=== PATIENT | female | born 1955 | race African-American/Black ===

== ENCOUNTER → 2016-05-01 | Outpatient (CLI) | payer MEDICAID ==
[~2016-05-01] MED LIST: AC325T PO; AMLO10TA4 PO; AMLO5TAB2 PO; ASCO500T20 PO; ASP81CT PO; ASPI-892 PO; Amlodipine Besylate PO; CLPD75T PO; DCS100C PO; DICL100G13 TOP; DOCU-161 PO; ENXP40I.4 SC; ESTR1TAB24 PO; FURO20TA4 PO; FURO40TA PO; GABA-486 PO; Gabapentin PO; HYDR-3816 PO; LEVO75TA PO; LORA10TA7 PO; LVT.1T PO; Loratadine PO; METO-351 PO; METO25TA PO; MTF500T PO; MTP25TSR PO; MULT-974 PO; MULT1TAB12 PO; OMEP20CA12 PO; POTA10TA36 PO; RIVA15TA PO; RIVA20TA4 PO; SULF500T PO; SULF500T3 PO; TRAM50TA2 PO; VITA400T9 PO; [UNRECOGNIZED DRUG - CODE] PO
--- OUTSIDE RECORDS SUMMARY | 2016-05-01 11:00 | XMS REPORT | Continuity of Care Document ---
Author Author [facility] Organization [facility] Address Unknown Phone Unavailable Care Team Providers Care Transit Police Officer Name Role Phone GUERO CABRERA DO PCP Insurance Providers Payer Name Policy Number Subscriber Name Relationship CIGNA [id number] Brittny Bernal 20 Self / Same As Patient Advance Directives Directive Response Recorded Date/Time Advance Directives Yes 09/24/14 6:50pm Health Care Power of Lacrosse Coach Y son Frieda 09/24/14 6:50pm Organ Donor No 09/24/14 6:50pm Resuscitation Status Full Code 09/24/14 6:50pm Chief Complaint and Reason for Visit Chief Complaint LEFT LOWER EXTREMITY DVT Reason for Visit Left leg DVT Left leg DVT Problems Medical Problems Problem Onset Date Status Left leg DVT Unknown Active Left leg DVT Unknown Active Medications Medication Dose Route Sig Days/Qty Instructions Order Date Discontinued Date Status Metoprolol Succinate 25 Mg PO DAILY 05/17/14 08/11/14 Discontinued Estradiol 1 Mg PO DAILY 05/17/14 08/11/14 Discontinued Vitamin E Mixed 400 Unit PO DAILY 05/17/14 Active Calcium Carbonate/Vitamin D3 1 Tab PO DAILY 05/17/14 Active Levothyroxine Sodium (Levothroid) 100 Mcg PO DAILY 05/17/14 Discontinued Metformin HCl (Glucophage) 500 Mg PO TWICE A DAY 05/17/14 08/11/14 Discontinued Sulfasalazine 1,500 Mg PO DAILY TAKES 3 (500MG) TABLETS 05/17/1408/11 Discontinued Ascorbic Acid 1,500 Mg PO DAILY 05/17/14 Active Multivitamin 1 Tab PO DAILY 07/07/14 09/25/14 Discontinued Acetaminophen 650 Mg PO EVERY 4HRS PRN MILD PAIN 30 Days 07/14/14 Discontinued Aspirin 81 Mg PO DAILY 30 Days 07/14/14 09/25/14 Discontinued [Amlodipine Besylate] 5 Mg PO TWICE A DAY 30 Days 07/14/14 09/25/14 Discontinued Clopidogrel Bisulfate 75 Mg PO DAILY 30 Days 07/14/14 09/25/14 Discontinued Docusate Sodium 100 Mg PO TWICE A DAY 30 Days 07/14/14 09/25/14 Discontinued Enoxaparin Sodium 40 Mg SC DAILY@1100 30 Days 07/14/14 08/11/14 Discontinued Metoprolol Succinate (Metoprolol ER 25mg) 50 Mg PO DAILY 30 Days 09/25/14 Discontinued Levothyroxine Sodium 75 Mcg PO DAILY@0630 30 Qty 08/11/14 09/25/14 Discontinued [Loratadine] 10 Mg PO DAILY 30 Qty 08/11/14 09/25/14 Discontinued Diclofenac Sod 0 Gm TOP FOUR TIMES DAILY 1 Qty 08/11/14 09/25/14 Discontinued [Gabapentin] 100 Mg PO TWICE A DAY 60 Qty 08/11/14 09/25/14 Discontinued Rivaroxaban 15 Mg PO TWICE A DAY 42 Qty 09/24/14 09/24/14 Discontinued Multivitamins W-Minerals 1 Tab PO DAILY 09/25/14 Active Aspirin 81 Mg PO DAILY 09/25/14 Active Amlodipine Besylate (Norvasc 5 Mg) 5 Mg PO TWICE A DAY 09/25/14 Discontinued Clopidogrel Bisulfate 75 Mg PO DAILY 09/25/14 09/26/14 Discontinued Docusate Sodium 100 Mg PO TWICE A DAY 09/25/14 Active Metoprolol Succinate (Toprol Xl) 25 Mg PO DAILY 09/25/14 Active Loratadine 10 Mg PO DAILY 09/25/14 Active Gabapentin 100 Mg PO TWICE A DAY 09/25/14 Active Furosemide 40 Mg PO DAILY 09/25/14 09/26/14 Discontinued Hydrocodone Bit/Acetaminophen 1 Tab PO THREE TIMES A DAY 09/25/14 Active Omeprazole 20 Mg PO DAILY 09/25/14 Active Tramadol Hcl 50 Mg PO EVERY 12 HOURS PRN BREAKTHROUGH PAIN 09/25/14 Active Sulfasalazine 1,500 Mg PO TWICE A DAY TAKES 3 (500MG) TABLETS 09/25/14 Active Amlodipine Besylate 10 Mg PO DAILY 30 Qty 09/26/14 Active Rivaroxaban 15 Mg PO TWICE A DAY 40 Qty 09/26/14 Active Rivaroxaban 20 Mg PO DAILY 30 Qty daily 09/26/14 Active Furosemide (Lasix) 1 Each PO DAILY 30 Qty 09/26/14 Active Potassium Chloride 1 Each PO DAILY WITH MEAL 30 Qty 09/26/14 Active Social History Social History Problem Response Recorded Date/Time Alcohol Use Denies Use 09/24/2014 6:50pm Recreational Drug Use No 09/24/2014 6:50pm Recent Foreign Travel No 09/24/2014 6:50pm Recent Infectious Disease Exposure No 09/24/2014 6:50pm Hospitalization with Isolation Denies 09/26/2014 3:00pm Sexually Transmitted Disease No 09/24/2014 6:50pm HIV/AIDS No 09/24/2014 6:50pm Smoking Status Never a Smoker 09/24/2014 6:50pm Do you dip or chew tobacco? No 09/24/2014 6:50pm Query Response Start Date Stop Date Smoking Status Never a Smoker 04/13/1976 Hospital Discharge Instructions No hospital discharge instructions. Plan of Care Discharge Date 09/26/14 2:15pm Disposition 30 STILL A PATIENT Instructions/Education Provided Deep Venous Thrombosis (ED) Deep Venous Thrombosis (GEN) Forms Provided PDI Medical Prescriptions See Medications Section Referrals dameon (Unspecified) 06/13/14 Reason(s) for Referral: Your appointment is on June 13 at 830 am GUERO CABRERA DO (Unspecified) 08/18/14 Address: [address] [place] [phone] Reason(s) for Referral: AT 10:30 AM TIMO COSTA MD (Unspecified) Address: [address] [place] [phone] Reason(s) for Referral: PLEASE CALL TO SCHEDULE AN APPOINTMENT IN 1-2 WEEKS. GUERO CABRERA DO (Unspecified) 10/03/14 Address: [address] [place] [phone] [phone] Reason(s) for Referral: 1:45 PM OTONIEL CALI MD (Unspecified) 10/16/14 Address: [facility] [address] [place] [address] Reason(s) for Referral: 2:30 PM TIMO COSTA MD (Unspecified) 10/26/14 Address: [address] [place] [phone] Reason(s) for Referral: 11:30 AM Care Plan and Goals Appointment with Dr. Costa's office in 2-[address] Cabrera's office in one week Functional Status Query Response Date Recorded Patient Orientation Normal For Age September 26, 2014 10:32am Comprehension Ability Understands Concepts September 26, 2014 9:20am Allergies, Adverse Reactions, Alerts Allergen Type Severity Reaction Status Last Updated No Known Drug Allergies Active 12/04/11 Immunizations Name Given Type Tetanus Booster (TDap) Unknown Historical pneumococcal polysaccharide PPV23 09/26/14 Administered pneumococcal polysaccharide PPV23 09/26/14 Administered Vital Signs Acute Vital Signs Vital Response Date/Time Temperature (Fahrenheit) 98.0 degrees F (97.6 - 99.5) Temperature (Calculated Celsius) 36.81751 degrees C (36.4 - 37.5) Temperature Source Tympanic Pulse Rate (adult) 85 bpm (60 - 90) Respiratory Rate 19 bpm (12 - 24) O2 Sat by Pulse Oximetry 97 % (88 - 100) Blood Pressure 146/86 mm Hg Pain Pain Intensity 0 Height (Feet) 5 feet Height (Inches) 5.00 inches Height (Calculated Centimeters) 165.023324 cm Weight (Pounds) 290 pounds Weight (Calculated Grams) 497448.789 gm Weight (Calculated Kilograms) 131.880012 kilograms Calculated BMI 48.25 Results Laboratory Results Test Name Result Units Flags Reference Collection Date/Time Result Date/ Time Comments White Blood Count 6.0 10^3/uL 4.3-11.0 09/24/2014 5:32p 09/24/2014 5: 45pm Red Blood Count 4.35 10^6/uL 4.35-5.85 09/24/2014 5:32pm 09/24/2014 5: 45pm Hemoglobin 12.4 G/DL 11.5-16.0 09/24/2014 5:32pm 09/24/2014 5:45pm Hematocrit 37 % 35-52 09/24/2014 5:32pm 09/24/2014 5:45pm Mean Corpuscular Volume 86 FL 80-99 09/24/2014 5:32pm 09/24/2014 5: 45pm Mean Corpuscular Hemoglobin 29 PG 25-34 09/24/2014 5:32p 09/24/2014 5: 45pm Mean Corpuscular Hemoglobin Concent 33 G/DL 32-36 09/24/2014 5:32pm 5:45pm Red Cell Distribution Width 14.8 % H 10.0-14.5 09/24/2014 5:32p 2014 5:45pm Platelet Count 325 10^3/uL 130-400 09/26/2014 5:18am 09/26/2014 5:53am Mean Platelet Volume 10.0 FL 7.4-10.4 09/24/2014 5:32pm 09/24/2014 5: 45pm Neutrophils (%) (Auto) 60 % 42-75 09/24/2014 5:32p 09/24/2014 5:45pm Lymphocytes (%) (Auto) 28 % 12-44 09/24/2014 5:32pm 09/24/2014 5:45pm Monocytes (%) (Auto) 10 % 0-12 09/24/2014 5:32p 09/24/2014 5:45pm Eosinophils (%) (Auto) 2 % 0-10 09/24/2014 5:32p 09/24/2014 5:45pm Basophils (%) (Auto) 1 % 0-10 09/24/2014 5:32p 09/24/2014 5:45pm Neutrophils # (Auto) 3.6 X 10^3 1.8-7.8 09/24/2014 5:32pm 09/24/2014 5: 45pm Lymphocytes # (Auto) 1.7 X 10^3 1.0-4.0 09/24/2014 5:32pm 09/24/2014 5: 45pm Monocytes # (Auto) 0.6 X 10^3 0.0-1.0 09/24/2014 5:32pm 09/24/2014 5: 45pm Eosinophils # (Auto) 0.1 10^3/uL 0.0-0.3 09/24/2014 5:32pm 09/24/2014 5 :45pm Basophils # (Auto) 0.1 10^3/uL 0.0-0.1 09/24/2014 5:32pm 09/24/2014 5: 45pm Prothrombin Time 14.1 SEC 12.2-14.7 09/24/2014 5:32pm 09/24/2014 5: 56pm INR Comment 1.1 0.8-1.4 09/24/2014 5:32pm 09/24/2014 5:56pm INTERPRETIVE DATA SUGGESTED THERAPEUTIC RANGE FOR INR'S: VENOUS THROMBOSIS, PULMONARY EMBOLISM, OR PREVENTION OF SYSTEMIC EMBOLISM (EG. IN ATRIAL FIBRILLATION): 2.0 - 3.0 MECHANICAL PROSTHETIC HEART VALVES: 2.5 - 3.5* *NOTE: INR'S UP TO 4.5 MAY BE NECESSARY IN SELECTED GROUPS OF HIGH RISK PATIENTS. [employer] CONSENSUS CONFERENCE ON ANTITHROMBOTIC THERAPY (2000). Activated Partial Thromboplast Time 64 SEC H 24-35 09/25/2014 4:44am 5:32am Sodium Level 142 MMOL/L 135-145 09/26/2014 5:18am 09/26/2014 6:26am Potassium Level 3.3 MMOL/L L 3.6-5.0 09/26/2014 5:18am 09/26/2014 6:26am Chloride Level 101 MMOL/L 98-107 09/26/2014 5:18am 09/26/2014 6:26am Carbon Dioxide Level 29 MMOL/L 21-32 09/26/2014 5:18am 09/26/2014 6: 26am Blood Urea Nitrogen 6 MG/DL L 7-18 09/26/2014 5:18am 09/26/2014 6:26am Creatinine 0.69 MG/DL 0.60-1.30 09/26/2014 5:18am 09/26/2014 6:26am BUN/Creatinine Ratio 9 09/26/2014 5:18am 09/26/2014 6:26am Estimat Glomerular Filtration Rate > 60 09/26/2014 5:18am 2014 6:26am GFR INTERPRETIVE DATA UNITS FOR ESTIMATED GFR (eGFR): mL/min/1.73 M2 REFERENCE RANGE FOR ESTIMATED GFR (eGFR) eGFR NORMAL eGFR >60 MODERATELY DECREASED eGFR 30-59 SEVERLY DECREASED eGFR 15-29 KIDNEY FAILURE <15 (OR DIALYSIS) Glucose Level 102 MG/DL 70-105 09/26/2014 5:18am 09/26/2014 6:26am Calcium Level 9.9 MG/DL 8.5-10.1 09/26/2014 5:18am 09/26/2014 6:26am Thyroid Stimulating Hormone (TSH) 0.99 UIU/ML 0.35-4.94 09/25/2014 4: 44am 09/25/2014 2:31pm Procedures Procedure Status Date Provider(s) Tracing only of electrocardiogram completed 09/25/14 TIMO COSTA MD Color Doppler echocardiography completed 09/25/14 TIMO COSTA MD Encounters Encounter Location Date/Time Discharged Inpatient Via [facility] 09/24/14 6:03pm Recent Diagnosis Left leg DVT Left leg DVT
--- NOTE | 2016-05-01 13:10 | Diagnostic Imaging Report ---
EXAMINATION: Left lower extremity duplex venous ultrasound. TECHNIQUE: DVT protocol. Multiple sonographic images with color Doppler and waveform interrogation were performed of the left lower extremity veins with compression and augmentation maneuvers. INDICATION: Left leg swelling. FINDINGS: The left lower extremity veins from the groin to below the knee veins were examined with normal color-flow, compressibility and waveform demonstrated. The great saphenous vein is patent. IMPRESSION: No evidence of DVT in the left lower extremity. Dictated by: Dictated on workstation # [id number]
== END ==
LOC: RAD 10:56
PROVIDERS: ATTEND Family Medicine
DX: M79.89 Other specified soft tissue disorders (principal)

== ENCOUNTER 2016-05-02 10:54 | Emergency (ER) | payer MEDICAID ==
[~2016-05-02] VITALS: Ht 165.1 cm; Wt 132.4 kg
--- OUTSIDE RECORDS SUMMARY | 2016-05-02 11:01 | XMS REPORT | Continuity of Care Document ---
Author Author [facility] Organization [facility] Address Unknown Phone Unavailable Care Team Providers Care Computer System Validation Specialist Name Role Phone GUERO CABRERA DO PCP Insurance Providers Payer Name Policy Number Subscriber Name Relationship [employer] [id number] Brittny Bernal 20 Self / Same As Patient Advance Directives Directive Response Recorded Date/Time Advance Directives Yes 09/24/14 6:50pm Health Care Power of Handle Bender Y son Frieda 09/24/14 6:50pm Organ Donor [...] am GUERO CABRERA DO (Unspecified) 08/18/14 Address: [address] [place] [phone] Reason(s) for Referral: AT 10:30 AM TIMO COSTA MD (Unspecified) Address: [address] [place] [phone] Reason(s) for Referral: PLEASE CALL TO SCHEDULE AN APPOINTMENT IN 1-2 WEEKS. GUERO CABRERA DO (Unspecified) 10/03/14 Address: [address] [place] [phone] Reason(s) for Referral: 1:45 PM OTONIEL CALI MD (Unspecified) 10/16/14 Address: [facility] [address] [place] [address] Reason(s) for Referral: 2:30 PM TIMO COSTA MD (Unspecified) 10/26/14 Address: [address] [place] [phone] Reason(s) for Referral: 11:30 AM Care Plan [...] F (97.6 - 99.5) Temperature (Calculated Celsius) 36.97124 degrees C (36.4 - 37.5) Temperature Source Tympanic Pulse Rate (adult) 85 bpm (60 - 90) Respiratory Rate 19 bpm (12 - 24) O2 Sat by Pulse Oximetry 97 % (88 - 100) Blood Pressure 146/86 mm Hg Pain Pain Intensity 0 Height (Feet) 5 feet Height (Inches) 5.00 inches Height (Calculated Centimeters) 165.416045 cm Weight (Pounds) 290 pounds Weight (Calculated Grams) 513556.789 gm Weight (Calculated Kilograms) 131.981495 kilograms Calculated BMI 48.25 Results Laboratory Results [...] SELECTED GROUPS OF HIGH RISK PATIENTS. [employer] [place] [employer] CONSENSUS CONFERENCE ON [...] Encounters Encounter Location Date/Time Discharged Inpatient Via [facility] 09/24/14 6:03pm Recent Diagnosis Left leg DVT Left leg DVT
--- NOTE | 2016-05-02 11:27 | ED General ---
General Chief Complaint: Lower Extremity Stated Complaint: LEFT LEG SWELLING Nursing Triage Note: pt was seen as outpatient this morning for doppler of left lower extremity. they sent her home to change her clothes. dr cabrera then sent her back to er to be evaluated. Nursing Sepsis Screen: No Definite Risk Source of Information: Patient Exam Limitations: No Limitations History of Present Illness Time Seen by Provider: 11:10 Initial Comments Here with one to 2 weeks of increasing left lower extremity swelling and pain. Has history of stroke and has left-sided residual. Patient notes the swelling has been increasing. She did have left lower extremity ultrasound yesterday and this was negative for DVT. No recent report of fever or chills. Timing/Duration: 1 Week Severity: Moderate Associated Systoms: No Chest Pain, No Fever/Chills, No Nausea/Vomiting, No Shortness of Air, No Weakness Allergies and Home Medications Allergies Coded Allergies: No Known Drug Allergies (Unverified , 12/04/11) Home Medications Amlodipine Besylate 10 Mg Tablet #30 10 MG PO DAILY Prescribed by: TIMO COLVIN on 09/26/14750 Ascorbic Acid 500 Mg Tablet 1,500 MG PO DAILY (Reported) TAKES 3 (500MG) TABLETS Aspirin 81 Mg Tabec 81 MG PO DAILY (Reported) Calcium Carbonate/Vitamin D3 1 Each Tablet 1 TAB PO DAILY (Reported) Docusate Sodium 100 Mg Capsule 100 MG PO BID (Reported) Furosemide 20 Mg Tablet #30 1 EACH PO DAILY Prescribed by: TIMO COLVIN on 09/26/14750 Gabapentin 100 Mg Capsule 100 MG PO BID (Reported) Hydrocodone Bit/Acetaminophen 1 Tab Tablet 1 TAB PO TID (Reported) Loratadine 10 Mg Tablet 10 MG PO DAILY (Reported) Metoprolol Succinate 25 Mg Tab.sr.24h 25 MG PO DAILY (Reported) Multivitamins W-Minerals 1 Each Tablet 1 TAB PO DAILY (Reported) Omeprazole 20 Mg Capsule.dr 20 MG PO DAILY (Reported) Potassium Chloride 10 Meq Tab.prt.sr #30 1 EACH PO DAILY WITH MEAL Prescribed by: TIMO COLVIN on 09/26/14750 Rivaroxaban 15 Mg Tablet #40 15 MG PO BID Prescribed by: TIMO COLVIN on 09/26/14750 Rivaroxaban 20 Mg Tablet #30 20 MG PO DAILY Take Xarelto 15 mg twice daily for 20 days then start Xarelto 20 mg daily Prescribed by: TIMO COLVIN on 09/26/14 0751 Sulfasalazine 500 Mg Tablet 1,500 MG PO BID (Reported) TAKES 3 (500MG) TABLETS Tramadol Hcl 50 Mg Tablet 50 MG PO Q12H PRN PRN BREAKTHROUGH PAIN (Reported) Vitamin E Mixed 400 Unit Tablet 400 UNIT PO DAILY (Reported) Constitutional: see HPINo chills, No fever Respiratory: no symptoms reported Cardiovascular: No chest pain, edema Gastrointestinal: no symptoms reportedNo diarrhea, No nausea, No vomiting Genitourinary: no symptoms reported Musculoskeletal: no symptoms reported Skin: no symptoms reported Psychiatric/Neurological: See HPI Pre-Existing Deficit Past Ctqthaq-Xxkacq-Lmcfmb Hx Patient Social History Alcohol Use: Past History Recreational Drug Use: No Smoking Status: Former Smoker Former Smoker/When Quit: Apr 13, 1976 Recent Foreign Travel: No Contact w/Someone Who Travel: No Recent Infectious Disease Expo: No Recent Hopitalizations: No Physical Abuse Screen: No Sexual Abuse: No Immunizations Up To Date Tetanus Booster (TDap): Unknown Date of Influenza Vaccine: Feb 12, 2016 Seasonal Allergies Seasonal Allergies: Yes Surgeries HX Surgeries: Yes (HEART CATH 1 MONTH AGO) Surgeries: Breast, Hysterectomy Respiratory Hx Respiratory Disorders: Yes Respiratory Disorders: Asthma Cardiovascular Hx Cardiac Disorders: Yes (cardiac recorder implanted lt upper chest) Cardiac Disorders: Hypertension Neurological Hx Neurological Disorders: Yes (CVA 07/2014; lt upper/lower flaccid) Neurological Disorders: Headaches /Migraines, Stroke Reproductive System Hx Reproductive Disorders: No Sexually Transmitted Disease: No HIV/AIDS: No Female Reproductive Disorders: Denies 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 Genitourinary Hx Genitourinary Disorders: No Gastrointestinal Hx Gastrointestinal Disorders: No Musculoskeletal Hx Musculoskeletal Disorders: No Endocrine Hx Endocrine Disorders: Yes Endocrine Disorders: Hypothyroidsim, Diabetes, Non-Insulin dep HEENT HX ENT Disorders: No Hearing Impairment: Denies Cancer Hx Cancer: No Psychosocial Hx Psychiatric Problems: No Integumentary HX Skin/Integumentary Disorder: No Blood Transfusions Hx Blood Disorders: No Reviewed Nursing Assessment Reviewed/Agree w Nursing PMH: Yes Family Medical History Significant Family History: No Pertinent Family Hx Family Medial History: FH: lung cancer 19 FATHER 19 MOTHER Stroke (cerebrovascular) 19 MOTHER Physical Exam Vital Signs Vital Sign - Last 12Hours 05/02/16 11:10 Temp 96.9 Pulse 77 Resp 18 B/P 133/73 Capillary Refill : Less Than 3 Seconds General Appearance: No Apparent Distress WD/WN HEENT: PERRL/EOMI Pharynx Normal Neck: Non Tender Supple Respiratory: Lungs Clear Normal Breath Sounds Cardiovascular: Regular Rate, Rhythm No Murmur Gastrointestinal: Non Tender Soft Back: Normal Inspection No CVA Tenderness No Vertebral Tenderness Extremity: Pedal Edema (3+ pedal edema to the left side to the level of the knee. Also noted edema to the left arm.) Neurologic/Psychiatric: Alert Oriented x3 Progress/Results/Core Measures Results/Orders Lab Results Laboratory Tests Test 05/02/16 11:25 Range/Units Alanine Aminotransferase (ALT/SGPT) 12 0-55 U/L Albumin 3.6 3.2-4.5 G/DL Alkaline Phosphatase 125 40-136 U/L Anion Gap 8 5-14 MMOL/L Aspartate Amino Transf (AST/SGOT) 15 5-34 U/L BUN/Creatinine Ratio 14 Basophils # (Auto) 0.0 0.0-0.1 10^3/uL Basophils (%) (Auto) 1 0-10 % Blood Urea Nitrogen 10 7-18 MG/DL C-Reactive Protein High Sensitivity 5.92 H 0.00-0.50 MG/DL Calcium Level 9.1 8.5-10.1 MG/DL Carbon Dioxide Level 30 21-32 MMOL/L Chloride Level 102 98-107 MMOL/L Creatinine 0.70 0.60-1.30 MG/DL D-Dimer 0.65 H 0.00-0.49 UG/ML Eosinophils # (Auto) 0.1 0.0-0.3 10^3/uL Eosinophils (%) (Auto) 2 0-10 % Estimat Glomerular Filtration Rate > 60 Glucose Level 100 70-105 MG/DL Hematocrit 34 L 35-52 % Hemoglobin 11.2 L 11.5-16.0 G/DL Lymphocytes # (Auto) 1.8 1.0-4.0 X 10^3 Lymphocytes (%) (Auto) 37 12-44 % Magnesium Level 1.9 1.8-2.4 MG/DL Mean Corpuscular Hemoglobin 29 25-34 PG Mean Corpuscular Hemoglobin Concent 33 32-36 G/DL Mean Corpuscular Volume 89 80-99 FL Mean Platelet Volume 9.8 7.4-10.4 FL Monocytes # (Auto) 0.5 0.0-1.0 X 10^3 Monocytes (%) (Auto) 10 0-12 % Neutrophils # (Auto) 2.5 1.8-7.8 X 10^3 Neutrophils (%) (Auto) 51 42-75 % Platelet Count 269 130-400 10^3/uL Potassium Level 3.9 3.6-5.0 MMOL/L Red Blood Count 3.85 L 4.35-5.85 10^6/uL Red Cell Distribution Width 15.2 H 10.0-14.5 % Sodium Level 140 135-145 MMOL/L Total Bilirubin 0.4 0.1-1.0 MG/DL Total Protein 7.8 6.4-8.2 G/DL White Blood Count 5.0 4.3-11.0 10^3/uL My Orders Orders-TO CHATMAN MD Cbc With Automated Diff (05/02/16 11:10) Comprehensive Metabolic Panel (05/02/16 11:10) Hs C Reactive Protein (05/02/16 11:10) Fibrin Degradation Products (05/02/16 11:10) Magnesium (05/02/16 11:10) Saline Lock/Iv-Start (05/02/16 11:10) Saline Lock/Iv-Start (05/02/16 13:31) Ns Iv 500 Ml (Sodium Chloride 0.9%) (05/02/16 13:31) Medications Given in ED Current Medications Medications Dose Ordered Sig/Magdi Route Start Time Stop Time Status Last Admin Dose Admin Iohexol 150 ml ONCE ONCE IV 05/02/16 13:00 05/02/16 13:01 DC 05/02/16 13:03 150 ML Sodium Chloride 500 ml @ 0 mls/hr Q0M ONCE IV 05/02/16 13:31 05/02/16 13:33 DC 05/02/16 14:05 500 MLS/HR Sodium Chloride 100 ml 100 ml ONCE ONCE IV 05/02/16 13:00 05/02/16 13:01 DC 05/02/16 13:03 80 ML Vital Signs/I&O Vital Sign - Last 12Hours 05/02/16 11:10 Temp 96.9 Pulse 77 Resp 18 B/P 133/73 Blood Pressure Mean: 93 Progress Note : Progress Note Seen and evaluated. IV and labs ordered. CT abdomen pelvis angiogram with runoff ordered per request of PCP, Dr. Cabrera. This was done. Normal saline 500 mL bolus afterwards to flush contrast. Findings as listed below but no significant findings for obstruction in any the vasculature evaluated. Appears to be more simple edema. I did discuss the case with Dr. Cabrera at 1424. He will have patient follow up in the edema clinic next week. He was to see patient in his office on Thursday. Discharged home with return precautions. Patient and caregiver verbalize understanding of instructions and agreement with plan. Diagnostic Imaging Diagonstic Imaging: CT Plain Films/CT/US/NM/MRI: abdomen, pelvis Comments VIA [facility], [facility]. [place], [place] NAME: ANNAMARIE BENJAMIN MED REC#: [id number] PT STATUS: REG ER : 1955 PHYSICIAN: ONUR MANUEL ADMIT DATE: 05/02/16/ER Draft Date of Exam:05/02/16 CTA AORTA W LISSY RUNOFF W/WO EXAMINATION: CTA AORTA W LISSY RUNOFF W/WO. TECHNIQUE: Postcontrast axial imaging of the abdomen, pelvis, and bilateral lower extremities was performed according to the angiogram protocol. Per protocol, MIP reformatted imaging of the vessels was performed. INDICATION: Left leg pain and swelling x 2 weeks. Concern for pelvic thrombosis. COMPARISON: Left lower extremity venous Doppler of 05/01/2016. FINDINGS: AORTA AND ILIAC ARTERIES: The abdominal aorta is normal in caliber. The celiac, superior mesenteric, bilateral renal, and inferior mesenteric arteries are all patent centrally. The bilateral common iliac arteries are widely patent. The bilateral internal iliac arteries are patent proximally. The small branches are difficult to assess due to small size. The bilateral external iliac arteries are also widely patent. Due to contrast bolus timing for the aorta and its branches, the venous system in the pelvis is not evaluated. RIGHT LOWER EXTREMITY: The common femoral artery is widely patent. The profunda femoris and its branches are patent. The superficial femoral artery is widely patent without stenosis. The popliteal artery is normal. There is a three-vessel runoff to the level of the ankle. LEFT LOWER EXTREMITY: The common femoral artery is widely patent. The profunda femoris and its branches are patent. The SFA is also patent without significant stenosis. The popliteal artery is normal. There is a three-vessel runoff to the level of the ankle. There are asymmetric subcutaneous fat reticulations throughout the left lower leg extending into the foot. There is no significant asymmetric subcutaneous edema above the level of the knee. NONVASCULAR FINDINGS: The visualized portions of the liver and spleen are normal. Small hiatus hernia. The kidneys enhance normally. The pancreas and adrenals are normal. No bowel obstruction. No abdominal or pelvic lymphadenopathy. Status post hysterectomy. No concerning osseous lesion in the abdomen or pelvis. There are degenerative changes in both knees. IMPRESSION: 1. The bilateral lower extremity arteries are widely patent. There is a three-vessel runoff to the level of the ankle on both sides. 2. Normal aorta and iliac arteries. 3. Asymmetric subcutaneous edema and swelling in the left lower leg and foot. The asymmetric swelling is not present in the left thigh. This makes proximal/intrapelvic obstruction less likely. 4. Small hiatus hernia. Dictated on workstation # [id number] Dict: 05/02/16 1349 Trans: 05/02/16 1412 [id number] Interpreted by: DANIEL HUYNH MD Electronically signed by: Departure Impression Impression: Primary Impression: Leg edema, left Disposition: 01 HOME, SELF-CARE Condition: Stable Departure-Patient Inst. Decision time for Depature: 14:39 Referrals: GUERO CABRERA DO (PCP/Family) Primary Care Physician Patient Instructions: Dependent Edema (DC) Add. Discharge Instructions: All discharge instructions reviewed with patient and/or family. Voiced understanding. You may cancel the ultrasound appointment for Thursday. Follow-up with Dr. Cabrera on Thursday. He is going to set you up with the edema clinic. Return for worse pain, fever, vomiting, weakness, breathing problems or other concerns as needed. Copy Copies To 1: GUERO CABRERA TIMOTHY D MD May 02, 2016 11:27
[2016-05-02 11:35] LABS: BASOPHILS % (AUTO) 1 % (0-10); EOSINOPHILS # (AUTO) 0.1 10^3/uL (0.0-0.3); EOSINOPHILS % (AUTO) 2 % (0-10); LYMPHOCYTES # (AUTO) 1.8 X 10^3 (1.0-4.0); LYMPHOCYTES % (AUTO) 37 % (12-44); MEAN CORPUSCULAR HEMOGLOBIN 29 PG (25-34); MEAN CORPUSCULAR HGB CONC 33 G/DL (32-36); MEAN CORPUSCULAR VOLUME 89 FL (80-99); MEAN PLATELET VOLUME 9.8 FL (7.4-10.4); MONOCYTES # (AUTO) 0.5 X 10^3 (0.0-1.0); MONOCYTES % (AUTO) 10 % (0-12); NEUTROPHILS # (AUTO) 2.5 X 10^3 (1.8-7.8); NEUTROPHILS % (AUTO) 51 % (42-75); PLATELET COUNT 269 10^3/uL (130-400); RED BLOOD COUNT 3.85 10^6/uL (4.35-5.85); RED CELL DISTRIBUTION WIDTH 15.2 % (10.0-14.5)
[2016-05-02 11:56] LABS: ALANINE AMINOTRANSFERASE 12 U/L (0-55); ALBUMIN 3.6 G/DL (3.2-4.5); ANION GAP 8 MMOL/L (5-14); ASPARTATE AMINO TRANSFERASE 15 U/L (5-34); BILIRUBIN,TOTAL 0.4 MG/DL (0.1-1.0); BLOOD UREA NITROGEN 10 MG/DL (7-18); BUN/CREATININE RATIO 14; CALCIUM 9.1 MG/DL (8.5-10.1); CARBON DIOXIDE 30 MMOL/L (21-32); CHLORIDE 102 MMOL/L (98-107); GFR ESTIMATED > 60; GLUCOSE 100 MG/DL (70-105); MAGNESIUM 1.9 MG/DL (1.8-2.4); POTASSIUM 3.9 MMOL/L (3.6-5.0); SODIUM 140 MMOL/L (135-145); TOTAL PROTEIN 7.8 G/DL (6.4-8.2); hs C REACTIVE PROTEIN 5.92 MG/DL (0.00-0.50)
[2016-05-02] MEDS ORDERED: NS 100 ML (IVPB) BAG IV ONE (13:00)
[2016-05-02] MEDS ORDERED: IOHEXOL 350 MG/ML 150 ML (OMNIPAQUE 350) VIAL IV ONE (13:00)
[2016-05-02] MEDS ORDERED: NS IV 500 ML 500 ML IV ONE (13:31)
--- NOTE | 2016-05-02 14:12 | Diagnostic Imaging Report ---
EXAMINATION: CTA AORTA W LISSY RUNOFF W/WO. TECHNIQUE: Postcontrast axial imaging of the abdomen, pelvis, and bilateral lower extremities was performed according to the angiogram protocol. Per protocol, MIP reformatted imaging of the vessels was performed. INDICATION: Left leg pain and swelling x 2 weeks. Concern for pelvic thrombosis. COMPARISON: Left lower extremity venous Doppler of 05/01/2016. FINDINGS: AORTA AND ILIAC ARTERIES: The abdominal aorta is normal in caliber. The celiac, superior mesenteric, bilateral renal, and inferior mesenteric arteries are all patent centrally. The bilateral common iliac arteries are widely patent. The bilateral internal iliac arteries are patent proximally. The small branches are difficult to assess due to small size. The bilateral external iliac arteries are also widely patent. Due to contrast bolus timing for the aorta and its branches, the venous system in the pelvis is not evaluated. RIGHT LOWER EXTREMITY: The common femoral artery is widely patent. The profunda femoris and its branches are patent. The superficial femoral artery is widely patent without stenosis. The popliteal artery is normal. There is a three-vessel runoff to the level of the ankle. LEFT LOWER EXTREMITY: The common femoral artery is widely patent. The profunda femoris and its branches are patent. The SFA is also patent without significant stenosis. The popliteal artery is normal. There is a three-vessel runoff to the level of the ankle. There are asymmetric subcutaneous fat reticulations throughout the left lower leg extending into the foot. There is no significant asymmetric subcutaneous edema above the level of the knee. NONVASCULAR FINDINGS: The visualized portions of the liver and spleen are normal. Small hiatus hernia. The kidneys enhance normally. The pancreas and adrenals are normal. No bowel obstruction. No abdominal or pelvic lymphadenopathy. Status post hysterectomy. No concerning osseous lesion in the abdomen or pelvis. There are degenerative changes in both knees. IMPRESSION: 1. The bilateral lower extremity arteries are widely patent. There is a three-vessel runoff to the level of the ankle on both sides. 2. Normal aorta and iliac arteries. 3. Asymmetric subcutaneous edema and swelling in the left lower leg and foot. The asymmetric swelling is not present in the left thigh. This makes proximal/intrapelvic obstruction less likely. 4. Small hiatus hernia. Dictated by: Dictated on workstation # [id number]
[2016-05-02 15:04] VITALS: BP 141/73
== END 2016-05-02 15:04 | disposition home or self-care (01) ==
LOC: EDUNIT# 10:54 → ER 10:56
DX: R60.0 Localized edema (principal); K44.9 Diaphragmatic hernia without obstruction or gangrene; I10 Essential (primary) hypertension; E11.9 Type 2 diabetes mellitus without complications; I69.954 Hemiplegia and hemiparesis following unspecified cerebrovascular disease affecting left non-dominant side; Z87.891 Personal history of nicotine dependence; Z79.82 Long term (current) use of aspirin; Z79.899 Other long term (current) drug therapy
CPT/HCPCS: 36415; 75635; 80053; 83735; 85025; 85379; 86141; 96360

== ENCOUNTER → 2016-05-14 | Outpatient (CLI) | payer MEDICAID ==
--- OUTSIDE RECORDS SUMMARY | 2016-05-14 11:11 | XMS REPORT | Continuity of Care Document ---
Author Author [facility] Organization [facility] Address Unknown Phone Unavailable Care Team Providers Care Car Audio Installer Name Role Phone GUERO CABRERA DO PCP Insurance Providers Payer Name Policy Number Subscriber Name Relationship [employer] [id number] Brittny Bernal 20 Self / Same As Patient Advance Directives Directive Response Recorded Date/Time Advance Directives Yes 09/24/14 6:50pm Health Care Power of Automobile Service Station Attendant Y son Frieda 09/24/14 6:50pm Organ Donor [...] am GUERO CABRERA DO (Unspecified) 08/18/14 Address: [address] [place] [id number] [phone] Reason(s) for Referral: AT 10:30 AM TIMO COSTA MD (Unspecified) Address: [address] [place] [id number] [phone] Reason(s) for Referral: PLEASE CALL TO SCHEDULE AN APPOINTMENT IN 1-2 WEEKS. GUERO CABRERA DO (Unspecified) 10/03/14 Address: [address] [place] [id number] [phone] Reason(s) for Referral: 1:45 PM OTONIEL CALI MD (Unspecified) 10/16/14 Address: [facility] [address] [place] [address] Reason(s) for Referral: 2:30 PM TIMO COSTA MD (Unspecified) 10/26/14 Address: [address] [place] [id number] [phone] Reason(s) for Referral: 11:30 AM Care Plan [...] F (97.6 - 99.5) Temperature (Calculated Celsius) 36.74529 degrees C (36.4 - 37.5) Temperature Source Tympanic Pulse Rate (adult) 85 bpm (60 - 90) Respiratory Rate 19 bpm (12 - 24) O2 Sat by Pulse Oximetry 97 % (88 - 100) Blood Pressure 146/86 mm Hg Pain Pain Intensity 0 Height (Feet) 5 feet Height (Inches) 5.00 inches Height (Calculated Centimeters) 165.808308 cm Weight (Pounds) 290 pounds Weight (Calculated Grams) 129220.789 gm Weight (Calculated Kilograms) 131.566860 kilograms Calculated BMI 48.25 Results Laboratory Results [...] SELECTED GROUPS OF HIGH RISK PATIENTS. [employer] [place] [employer] CONSENSUS CONFERENCE ON [...] Encounters Encounter Location Date/Time Discharged Inpatient [facility] 09/24/14 6:03pm Recent Diagnosis Left leg DVT Left leg DVT
[2016-05-14 11:51] LABS: BASOPHILS # (AUTO) 0.1 10^3/uL (0.0-0.1); BASOPHILS % (AUTO) 1 % (0-10); EOSINOPHILS # (AUTO) 0.2 10^3/uL (0.0-0.3); EOSINOPHILS % (AUTO) 4 % (0-10); LYMPHOCYTES # (AUTO) 1.7 X 10^3 (1.0-4.0); LYMPHOCYTES % (AUTO) 29 % (12-44); MEAN CORPUSCULAR HEMOGLOBIN 28 PG (25-34); MEAN CORPUSCULAR HGB CONC 32 G/DL (32-36); MEAN CORPUSCULAR VOLUME 89 FL (80-99); MEAN PLATELET VOLUME 9.6 FL (7.4-10.4); MONOCYTES # (AUTO) 0.5 X 10^3 (0.0-1.0); MONOCYTES % (AUTO) 9 % (0-12); NEUTROPHILS # (AUTO) 3.4 X 10^3 (1.8-7.8); NEUTROPHILS % (AUTO) 58 % (42-75); PLATELET COUNT 293 10^3/uL (130-400); RED BLOOD COUNT 3.71 10^6/uL (4.35-5.85); RED CELL DISTRIBUTION WIDTH 15.5 % (10.0-14.5); WHITE BLOOD COUNT 5.9 10^3/uL (4.3-11.0)
[2016-05-14 11:56] LABS: PEP REPORT SEE PATH REPORT
[2016-05-14 12:24] LABS: ALANINE AMINOTRANSFERASE 9 U/L (0-55); ALBUMIN 3.5 G/DL (3.2-4.5); ANION GAP 6 MMOL/L (5-14); ASPARTATE AMINO TRANSFERASE 14 U/L (5-34); BILIRUBIN,TOTAL 0.3 MG/DL (0.1-1.0); BLOOD UREA NITROGEN 12 MG/DL (7-18); BUN/CREATININE RATIO 16; CARBON DIOXIDE 29 MMOL/L (21-32); CHLORIDE 103 MMOL/L (98-107); CREATININE SERUM 0.74 MG/DL (0.60-1.30); GFR ESTIMATED > 60; GLUCOSE 141 MG/DL (70-105); POTASSIUM 3.7 MMOL/L (3.6-5.0); SODIUM 138 MMOL/L (135-145); TOTAL PROTEIN 7.3 G/DL (6.4-8.2)
[2016-05-14 15:05] LABS: %SAT TOTAL IRON BINDING CAPIC 16 % (15-50); TIBC 231 ug/dL (280-380)
[2016-05-15 01:15] LABS: LIGHT CHAIN LAMBDA SERUM QUANT 20.88 mg/L (5.71-26.30)
[2016-05-15 07:34] LABS: UIBC 193 ug/dL (55-450)
[2016-05-16 16:49] LABS: CLIN PATHOLOGY REPORT FOOTNOTE; SERUM PROTEIN ELEC DETAIL L-17-0001466
== END ==
LOC: ONC 11:07
PROVIDERS: ATTEND Internal Medicine Hematology & Oncology
DX: I69.354 Hemiplegia and hemiparesis following cerebral infarction affecting left non-dominant side (principal); E03.9 Hypothyroidism, unspecified; E11.9 Type 2 diabetes mellitus without complications; I10 Essential (primary) hypertension; E66.01 Morbid (severe) obesity due to excess calories; Z86.718 Personal history of other venous thrombosis and embolism
CPT/HCPCS: 36415; 80053; 82728; 83540; 83883; 84155; 84165; 85025; 99213

== ENCOUNTER 2016-05-21 15:05 | Outpatient (RCR) | payer MEDICAID ==
--- OUTSIDE RECORDS SUMMARY | 2016-05-21 15:09 | XMS REPORT | Continuity of Care Document ---
Author Author [facility] Organization [facility] Address Unknown Phone Unavailable Care Team Providers Care Business Relations Manager Name Role Phone GUERO CABRERA DO PCP Insurance Providers Payer Name Policy Number Subscriber Name Relationship [employer] [id number] Brittny Bernal 18 Self / Same As Patient Advance Directives Directive Response Recorded Date/Time Advance Directives Yes 09/24/14 6:50pm Health Care Power of Radio Operator Ground Y son Frieda 09/24/14 6:50pm Organ Donor [...] am GUERO CABRERA DO (Unspecified) 08/18/14 Address: [address] [place] [phone] Reason(s) for Referral: AT 10:30 AM TIMO COSTA MD (Unspecified) Address: [address] [place] [phone] Reason(s) for Referral: PLEASE CALL TO SCHEDULE AN APPOINTMENT IN 1-2 WEEKS. GUERO CABRERA DO (Unspecified) 10/03/14 Address: [address] [place] [id number] [phone] Reason(s) for Referral: 1:45 PM OTONIEL CALI MD (Unspecified) 10/16/14 Address: [facility] [address] [place] [address] Reason(s) for Referral: 2:30 PM TIMO COSTA MD (Unspecified) 10/26/14 Address: [address] [place] [phone] Reason(s) for Referral: 11:30 AM Care Plan and Goals Appointment with Dr. Costa's office in 2-[address] Caberra's office in one week Functional Status Query [...] F (97.6 - 99.5) Temperature (Calculated Celsius) 36.60537 degrees C (36.4 - 37.5) Temperature Source Tympanic Pulse Rate (adult) 85 bpm (60 - 90) Respiratory Rate 19 bpm (12 - 24) O2 Sat by Pulse Oximetry 97 % (88 - 100) Blood Pressure 146/86 mm Hg Pain Pain Intensity 0 Height (Feet) 5 feet Height (Inches) 5.00 inches Height (Calculated Centimeters) 165.964169 cm Weight (Pounds) 290 pounds Weight (Calculated Grams) 414151.789 gm Weight (Calculated Kilograms) 131.420076 kilograms Calculated BMI 48.25 Results Laboratory Results [...] SELECTED GROUPS OF HIGH RISK PATIENTS. [employer] [place] [employer] CONSENSUS CONFERENCE ON [...] Encounters Encounter Location Date/Time Discharged Inpatient [facility] 09/24/14 6:03pm Recent Diagnosis Left leg DVT Left leg DVT
== END 2016-05-21 15:38 | disposition home or self-care (01) ==
PROVIDERS: ATTEND Family Medicine
DX: I89.0 Lymphedema, not elsewhere classified (principal)

== ENCOUNTER → 2018-01-19 | Outpatient (CLI) | payer MEDICAID ==
--- NOTE | 2018-01-19 12:42 | Diagnostic Imaging Report ---
INDICATION: Screening. The current study was also evaluated with a Computer Aided Detection (CAD) system. 3-D tomosynthesis was also performed and reviewed. COMPARISON: Comparison made with prior examinations from 07/12/2015 back through 07/14/2012. FINDINGS: There are scattered fibroglandular densities bilaterally. There are a few benign-type calcifications. There is no new dominant mass, spiculated lesion, or suspicious calcification identified. The skin, nipples, and axillae are unremarkable. IMPRESSION: Benign. ACR BI-RADS Category 2: Benign findings. Result letter will be mailed to the patient. Note: At least 10% of breast cancer is not imaged by mammography. Dictated by: Dictated on workstation # [id number]
== END ==
LOC: RAD 09:56
PROVIDERS: ATTEND Nurse Practitioner Community Health
DX: Z12.31 Encounter for screening mammogram for malignant neoplasm of breast (principal)
CPT/HCPCS: 77067

== ENCOUNTER → 2018-07-16 | Outpatient (CLI) | payer MEDICARE, MEDICAID | LOC: CARD 08:58 | PROVIDERS: ATTEND Internal Medicine Cardiovascular Disease | DX: R07.9 Chest pain, unspecified (principal); I25.10 Atherosclerotic heart disease of native coronary artery without angina pectoris; E11.9 Type 2 diabetes mellitus without complications; I10 Essential (primary) hypertension; I63.9 Cerebral infarction, unspecified | CPT/HCPCS: 93306 ==

== ENCOUNTER 2020-07-09 17:40 | Inpatient (IN) | payer MEDICARE, MEDICAID ==
[~2020-07-09] VITALS: Ht 165.1 cm; Wt 81.6 kg
--- NOTE | 2020-07-09 18:28 | ED Back Pain ---
General Chief Complaint: Back Problems Stated Complaint: VOMITING/BACK PAIN Nursing Triage Note: PT TO ROOM 07 VIA W/C WITH C/O RIGHT LOWER BACK PAIN, N/V X5 DAYS. [facility] Nursing Sepsis Screen: No Definite Risk Source of Information: Patient Exam Limitations: No Limitations History of Present Illness Date Seen by Provider: Jul 09, 2020 Time Seen by Provider: 17:42 Initial Comments [facility] reports of right low back pain associated with nausea vomiting and reduced urine output for 1 week. Location: Lumbar Spine Timing/Duration: 1-2 Days Severity: Moderate Pain/Injury Location: Back Associated Symptoms: lower back pain Allergies and Home Medications Allergies Coded Allergies: No Known Drug Allergies (Unverified , 12/04/11) Home Medications Amlodipine Besylate 10 Mg Tablet, 10 MG PO DAILY Prescribed by: TIMO COLVIN on 09/26/14750 Ascorbic Acid 500 Mg Tablet, 1,500 MG PO DAILY, (Reported) TAKES 3 (500MG) TABLETS Aspirin 81 Mg Tabec, 81 MG PO DAILY, (Reported) Calcium Carbonate/Vitamin D3 1 Each Tablet, 1 TAB PO DAILY, (Reported) Docusate Sodium 100 Mg Capsule, 100 MG PO BID, (Reported) Furosemide 20 Mg Tablet, 1 EACH PO DAILY Prescribed by: TIMO COLVIN on 09/26/14750 Gabapentin 100 Mg Capsule, 100 MG PO BID, (Reported) Hydrocodone Bit/Acetaminophen 1 Tab Tablet, 1 TAB PO TID, (Reported) Loratadine 10 Mg Tablet, 10 MG PO DAILY, (Reported) Metoprolol Succinate 25 Mg Tab.sr.24h, 25 MG PO DAILY, (Reported) Multivitamins W-Minerals 1 Each Tablet, 1 TAB PO DAILY, (Reported) Omeprazole 20 Mg Capsule.dr, 20 MG PO DAILY, (Reported) Potassium Chloride 10 Meq Tab.prt.sr, 1 EACH PO DAILY WITH MEAL Prescribed by: TIMO COLVIN on 09/26/14750 Rivaroxaban 15 Mg Tablet, 15 MG PO BID Prescribed by: TIMO COLVIN on 09/26/14750 Rivaroxaban 20 Mg Tablet, 20 MG PO DAILY Take Xarelto 15 mg twice daily for 20 days then start Xarelto 20 mg daily Prescribed by: TIMO COLVIN on 6/16/15 0751 Sulfasalazine 500 Mg Tablet, 1,500 MG PO BID, (Reported) TAKES 3 (500MG) TABLETS Tramadol Hcl 50 Mg Tablet, 50 MG PO Q12H PRN for BREAKTHROUGH PAIN, (Reported) Vitamin E Mixed 400 Unit Tablet, 400 UNIT PO DAILY, (Reported) Patient Home Medication List Home Medication List Reviewed: Yes Review of Systems Constitutional: see HPI; No chills, No fever EENTM: see HPI Respiratory: no symptoms reported Cardiovascular: no symptoms reported Gastrointestinal: nausea, vomiting Genitourinary: see HPI, decreased output Musculoskeletal: no symptoms reported Skin: no symptoms reported Psychiatric/Neurological: No Symptoms Reported Past Hhiuxma-Inzail-Hqitdb Hx Patient Social History Alcohol Use: Denies Use Smoking Status: Never a Smoker Recent Infectious Disease Expo: No Recent Hopitalizations: No Immunizations Up To Date Tetanus Booster (TDap): Unknown Date of Influenza Vaccine: Feb 12, 2016 Seasonal Allergies Seasonal Allergies: Yes Past Medical History Surgeries: Yes (HEART CATH 1 MONTH AGO) Breast, Hysterectomy Respiratory: Yes Asthma Cardiac: Yes (cardiac recorder implanted lt upper chest) Hypertension Neurological: Yes (CVA 07/2014; lt upper/lower flaccid) Headaches /Migraines, Stroke Reproductive Disorders: No Female Reproductive Disorders: Denies 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 11.2oz. 132.521373to; 29.00 BMI Method:Stated General Appearance: No Apparent Distress, WD/WN, Chronically ill, Obese Neck: Full Range of Motion, Normal Inspection Cardiovascular: Regular Rate, Rhythm, Normal Peripheral Pulses Respiratory: Normal Breath Sounds, No Accessory Muscle Use, No Respiratory Distress Gastrointestinal: Normal Bowel Sounds, Non Tender, Soft, Other (Minimal tenderness to the right side of the abdomen) Extremity: Normal Capillary Refill, No Calf Tenderness Neurologic/Psychiatric: Alert, Oriented x3 Skin: Normal Color, Warm/Dry Progress/Results/Core Measures Results/Orders Lab Results Laboratory Tests Test 07/09/20 18:31 07/09/20 18:33 07/09/20 18:50 Range/Units Urine Color YELLOW Urine Clarity CLOUDY H Urine pH 6.0 5-9 Urine Specific [place] >=1.030 1.016-1.022 Urine Protein 3+ H NEGATIVE Urine Glucose (UA) NEGATIVE NEGATIVE Urine Ketones 1+ H NEGATIVE Urine Nitrite POSITIVE H NEGATIVE Urine Bilirubin NEGATIVE NEGATIVE Urine Urobilinogen 2.0 < = 1.0 MG/DL Urine Leukocyte Esterase TRACE H NEGATIVE Urine RBC (Auto) 1+ H NEGATIVE Urine RBC 5-10 H /HPF Urine WBC >100 H /HPF Urine Squamous Epithelial Cells 10-25 H /HPF Urine Crystals NONE /LPF Urine Bacteria MODERATE H /HPF Urine Casts NONE /LPF Urine Mucus NEGATIVE /LPF Urine Culture Indicated YES White Blood Count 14.9 H 4.3-11.0 10^3/uL Red Blood Count 4.00 3.80-5.11 10^6/uL Hemoglobin 11.3 L 11.5-16.0 g/dL Hematocrit 34 L 35-52 % Mean Corpuscular Volume 85 80-99 fL Mean Corpuscular Hemoglobin 28 25-34 pg Mean Corpuscular Hemoglobin Concent 33 32-36 g/dL Red Cell Distribution Width 15.1 H 10.0-14.5 % Platelet Count 417 H 130-400 10^3/uL Mean Platelet Volume 9.9 9.0-12.2 fL Immature Granulocyte % (Auto) 1 % Neutrophils (%) (Auto) 87 H 42-75 % Lymphocytes (%) (Auto) 7 L 12-44 % Monocytes (%) (Auto) 5 0-12 % Eosinophils (%) (Auto) 0 0-10 % Basophils (%) (Auto) 0 0-10 % Neutrophils # (Auto) 12.9 H 1.8-7.8 10^3/uL Lymphocytes # (Auto) 1.0 1.0-4.0 10^3/uL Monocytes # (Auto) 0.8 0.0-1.0 10^3/uL Eosinophils # (Auto) 0.0 0.0-0.3 10^3/uL Basophils # (Auto) 0.1 0.0-0.1 10^3/uL Immature Granulocyte # (Auto) 0.1 0.0-0.1 10^3/uL Neutrophils % (Manual) 84 % Lymphocytes % (Manual) 13 % Monocytes % (Manual) 2 % Eosinophils % (Manual) 1 % Basophils % (Manual) 0 % Band Neutrophils 0 % Toxic Granulation 1+ Polychromasia SLIGHT Hypochromasia SLIGHT Anisocytosis SLIGHT Target Cells SLIGHT Prothrombin Time 19.7 H 12.2-14.7 SEC INR Comment 1.6 H 0.8-1.4 Sodium Level 142 135-145 MMOL/L Potassium Level 3.6 3.6-5.0 MMOL/L Chloride Level 104 98-107 MMOL/L Carbon Dioxide Level 25 21-32 MMOL/L Anion Gap 13 5-14 MMOL/L Blood Urea Nitrogen 13 7-18 MG/DL Creatinine 0.92 0.60-1.30 MG/DL Estimat Glomerular Filtration Rate > 60 BUN/Creatinine Ratio 14 Glucose Level 177 H 70-105 MG/DL Calcium Level 9.5 8.5-10.1 MG/DL Corrected Calcium 9.9 8.5-10.1 MG/DL Total Bilirubin 0.6 0.1-1.0 MG/DL Aspartate Amino Transf (AST/SGOT) 14 5-34 U/L Alanine Aminotransferase (ALT/SGPT) 12 0-55 U/L Alkaline Phosphatase 108 40-136 U/L Total Protein 8.5 H 6.4-8.2 GM/DL Albumin 3.5 3.2-4.5 GM/DL My Orders Orders - BOBO SANCHEZ TIME SIGNAL WIRER Cbc With Automated Diff (07/09/20 18:10) Comprehensive Metabolic Panel (07/09/20 18:10) Ua Culture If Indicated (07/09/20 18:10) Protime With Inr (07/09/20 18:10) Ct Abd/Pelvis Wo(Kidney Stone) (07/09/20 18:16) Ns Iv 1000 Ml (Sodium Chloride 0.9%) (07/09/20 18:30) Fentanyl Inj (Sublimaze Injection) (07/09/20 18:45) Manual Differential (07/09/20 18:33) Urine Culture (07/09/20 18:31) Ceftriaxone For Iv Use (Rocephin For I (07/09/20 19:00) Blood Culture (07/09/20 18:51) Lactic Acid Analyzer (07/09/20 18:51) Medications Given in ED Current Medications Medications Dose Ordered Sig/Magdi Route Start Time Stop Time Status Last Admin Dose Admin Ceftriaxone Sodium 1000 mg/ Sterile Water 10 ml @ 200 mls/hr ONCE ONCE IV 07/09/20 19:00 07/09/20 19:02 DC 07/09/20 19:14 200 MLS/HR Fentanyl Citrate 50 mcg ONCE ONCE IVP 07/09/20 18:45 07/09/20 18:46 DC 07/09/20 18:43 50 MCG Vital Signs/I&O 07/09/20 17:56 Temp 37.7 Pulse 99 Resp 17 B/P (MAP) 168/76 (106) O2 Delivery Room Air Blood Pressure Mean: 106 Diagnostic Imaging Diagonstic Imaging: CT Comments NAME: ANNAMARIE BENJAMIN MED REC#: [id number] PT STATUS: REG ER : 1955 PHYSICIAN: BOBO SANCHEZ TIME SIGNAL WIRER ADMIT DATE: 07/09/20/ER Draft Date of Exam:07/09/20 CT ABD/PELVIS WO(KIDNEY STONE) PROCEDURE: CT urinary tract, rule out kidney stone. TECHNIQUE: Multiple contiguous axial images were obtained through the abdomen and pelvis without the use of intravenous contrast. Auto Exposure Controls were utilized during the CT exam to meet ALARA standards for radiation dose reduction. INDICATION: Right flank pain. Prior history of stones. Nausea and vomiting x5 days. EXAMINATION: CT abdomen and pelvis without contrast 07/09/2020 COMPARISON: 05/02/2016 FINDINGS: There is moderate right hydroureteronephrosis. Fat stranding is seen about the mid right ureter. No ureteral stones, however, appreciated. There are several nonobstructive stones within the right kidney. Punctate stones noted in the left kidney with no left-sided hydronephrosis or ureteral stones. The remaining nonopacified abdominal viscera limited in evaluation. There appear to be hyperdensities along the dependent aspect of the gallbladder likely due to stones. No surrounding inflammation appreciated. The liver is unremarkable. The spleen unremarkable. Adrenal glands unremarkable. Pancreas unremarkable. Minimal free fluid in the pelvis could be physiologic. Urinary bladder not well evaluated given underdistention. However, cystitis is not excluded given mild adjacent fat stranding. This does abut the sigmoid colon with diverticular disease in the region. Focal diverticulitis would be difficult to exclude but felt to be less likely. Correlate with patient's symptoms. There is diastasis along the anterior midline of the abdomen with a focal hernia also noted containing a loop of large bowel. No evidence for strangulation. The osseous structures demonstrate diffuse degenerative findings. Lung bases demonstrate bibasilar atelectasis or scar. There is a small right pleural effusion. There is a small hiatal hernia. IMPRESSION: 1. Moderate right hydroureteronephrosis with fat stranding about the right ureter. No ureteral stones appreciated. Findings could be due to a recently passed stone versus pyelonephritis. Correlate with symptoms. 2. Fat stranding within the pelvis with minimal free fluid possibly due to cystitis. Urinary bladder is underdistended and poorly characterized. Adjacent diverticulitis in the differential but felt to be less likely. 3. Stones suspected within the gallbladder without surrounding inflammatory change. 4. Nonobstructive left-sided nephrolithiasis. Other findings as above. Dictated on workstation # [id number] Dict: 07/09/201856 Trans: 07/09/201919 [facility] [id number] Interpreted by: ARVIN GARZON MD Electronically signed by: Departure Communication (Admissions) 1929-Heart rate is currently 103 blood pressure 168/76. Lactic acid is pending. She is alert and oriented. Admitting to medical floor telemetry Dr. Zhou with a consult to Dr. Rowland for the dilated right ureter. Impression Primary Impression: Sepsis Qualified Codes: A41.9 - Sepsis, unspecified organism Additional Impression: UTI (urinary tract infection) Disposition: HOME, SELF-CARE Condition: Stable Admissions Decision to Admit Reason: Admit from ER (General) Decision to Admit/Date: Jul 09, 2020 Time/Decision to Admit Time: 19:11 Departure-Patient Inst. [facility]: [facility] (PCP[facility] Primary Care Physician ABIGAIL LUNA (Family) Primary Care Physician BOBO SANCHEZ APRN Jul 09, 2020 18:28
[2020-07-09] MEDS ORDERED: NS IV 1000 ML 1,000 ML IV SCH (18:30)
[2020-07-09 18:38] LABS: BILIRUBIN,URINE NEGATIVE (NEGATIVE); GLUCOSE, URINE (UA) NEGATIVE (NEGATIVE); KETONES,URINE 1+ (NEGATIVE); LEUKOCYTE ESTERASE ,URINE TRACE (NEGATIVE); NITRITE,URINE POSITIVE (NEGATIVE); PROTEIN,URINE 3+ (NEGATIVE)
[2020-07-09 18:43] LABS: BASOPHILS # (AUTO) 0.1 10^3/uL (0.0-0.1); BASOPHILS % (AUTO) 0 % (0-10); EOSINOPHILS % (AUTO) 0 % (0-10); HEMATOCRIT 34 % (35-52); HEMOGLOBIN 11.3 g/dL (11.5-16.0); LYMPHOCYTES % (AUTO) 7 % (12-44); MEAN CORPUSCULAR HEMOGLOBIN 28 pg (25-34); MEAN CORPUSCULAR HGB CONC 33 g/dL (32-36); MEAN CORPUSCULAR VOLUME 85 fL (80-99); MEAN PLATELET VOLUME 9.9 fL (9.0-12.2); MONOCYTES # (AUTO) 0.8 10^3/uL (0.0-1.0); MONOCYTES % (AUTO) 5 % (0-12); NEUTROPHILS # (AUTO) 12.9 10^3/uL (1.8-7.8); NEUTROPHILS % (AUTO) 87 % (42-75); PLATELET COUNT 417 10^3/uL (130-400); WHITE BLOOD COUNT 14.9 10^3/uL (4.3-11.0)
[2020-07-09 18:45] LABS: CLARITY,URINE CLOUDY; COLOR,URINE YELLOW
[2020-07-09] MEDS ORDERED: fentaNYL INJ 100 MCG/2 ML AMP IVP ONE (18:45)
[2020-07-09 18:47] LABS: BACTERIA,URINE MODERATE /HPF; WBC,URINE >100 /HPF
[2020-07-09 18:50] LABS: ALBUMIN 3.5 GM/DL (3.2-4.5)
[2020-07-09 18:51] LABS: CHLORIDE 104 MMOL/L (98-107); POTASSIUM 3.6 MMOL/L (3.6-5.0); SODIUM 142 MMOL/L (135-145)
[2020-07-09 18:52] LABS: CALCIUM 9.5 MG/DL (8.5-10.1)
[2020-07-09 18:53] LABS: GLUCOSE 177 MG/DL (70-105); TOTAL PROTEIN 8.5 GM/DL (6.4-8.2)
[2020-07-09 18:54] LABS: CARBON DIOXIDE 25 MMOL/L (21-32)
[2020-07-09 18:55] LABS: BILIRUBIN,TOTAL 0.6 MG/DL (0.1-1.0); INR 1.6 (0.8-1.4); PROTHROMBIN TIME PATIENT 19.7 SEC (12.2-14.7)
[2020-07-09 18:56] LABS: ALKALINE PHOSPHATASE 108 U/L (40-136); CREATININE SERUM 0.92 MG/DL (0.60-1.30); GFR ESTIMATED > 60
[2020-07-09 18:58] LABS: BUN/CREATININE RATIO 14
[2020-07-09 18:59] LABS: ALANINE AMINOTRANSFERASE 12 U/L (0-55)
[2020-07-09 19:00] LABS: ANISOCYTOSIS SLIGHT; BAND NEUTROPHILS 0 %; BASOPHILS % (MANUAL) 0 %; EOSINOPHILS % (MANUAL) 1 %; HYPOCHROMASIA SLIGHT; LYMPHOCYTES % (MANUAL) 13 %; MONOCYTES % (MANUAL) 2 %; NEUTROPHILS % (MANUAL) 84 %; POLYCHROMASIA SLIGHT; TARGET CELLS SLIGHT; TOXIC GRANULATION/VACUOLAZATIO 1+
[2020-07-09] MEDS ORDERED: cefTRIAXone FOR IV USE 1,000 MG in WATER (STERILE) FOR INJECTION 10 ML IV ONE (19:00)
--- NOTE | 2020-07-09 19:21 | Diagnostic Imaging Report ---
PROCEDURE: CT urinary tract, rule out kidney stone. TECHNIQUE: Multiple contiguous axial images were obtained through the abdomen and pelvis without the use of intravenous contrast. Auto Exposure Controls were utilized during the CT exam to meet ALARA standards for radiation dose reduction. INDICATION: Right flank pain. Prior history of stones. Nausea and vomiting x5 days. EXAMINATION: CT abdomen and pelvis without contrast 07/09/2020 COMPARISON: 05/02/2016 FINDINGS: There is moderate right hydroureteronephrosis. Fat stranding is seen about the mid right ureter. No ureteral stones, however, appreciated. There are several nonobstructive stones within the right kidney. Punctate stones noted in the left kidney with no left-sided hydronephrosis or ureteral stones. The remaining nonopacified abdominal viscera limited in evaluation. There appear to be hyperdensities along the dependent aspect of the gallbladder likely due to stones. No surrounding inflammation appreciated. The liver is unremarkable. The spleen unremarkable. Adrenal glands unremarkable. Pancreas unremarkable. Minimal free fluid in the pelvis could be physiologic. Urinary bladder not well evaluated given underdistention. However, cystitis is not excluded given mild adjacent fat stranding. This does abut the sigmoid colon with diverticular disease in the region. Focal diverticulitis would be difficult to exclude but felt to be less likely. Correlate with patient's symptoms. There is diastasis along the anterior midline of the abdomen with a focal hernia also noted containing a loop of large bowel. No evidence for strangulation. The osseous structures demonstrate diffuse degenerative findings. Lung bases demonstrate bibasilar atelectasis or scar. There is a small right pleural effusion. There is a small hiatal hernia. IMPRESSION: 1. Moderate right hydroureteronephrosis with fat stranding about the right ureter. No ureteral stones appreciated. Findings could be due to a recently passed stone versus pyelonephritis. Correlate with symptoms. 2. Fat stranding within the pelvis with minimal free fluid possibly due to cystitis. Urinary bladder is underdistended and poorly characterized. Adjacent diverticulitis in the differential but felt to be less likely. 3. Stones suspected within the gallbladder without surrounding inflammatory change. 4. Nonobstructive left-sided nephrolithiasis. Other findings as above. Dictated by: Dictated on workstation # [id number]
[2020-07-09 20:00] VITALS: BP 154/84
[2020-07-09] MEDS ORDERED: ACETAMINOPHEN 325 MG TABLET PO PRN (20:15)
[2020-07-09] MEDS ORDERED: HYDROcodone/APAP 5 MG/325 MG (LORTAB) TAB PO PRN (20:15)
[2020-07-09] MEDS ORDERED: CATHETER FLUSH 10 ML SYR IV PRN (20:30)
[2020-07-09 20:40] VITALS: BP 175/125
[2020-07-09] MEDS: LACTATED RINGERS 1,000 ML IV SCH ×2 (21:32→22:10)
[2020-07-09 21:40] VITALS: BP 175/125
[2020-07-09] MEDS ORDERED: meTOprolol TARTRATE 25 MG (LOPRESSOR) TABLET ONE (21:47)
[2020-07-09] MEDS ORDERED: lisINopril 20 MG (PRINIVIL) TABLET ONE (21:47)
[2020-07-09] MEDS: lisINopril 20 MG (PRINIVIL) TABLET PO SCH (21:55)
[2020-07-09] MEDS: meTOprolol TARTRATE 25 MG (LOPRESSOR) TABLET PO SCH (21:55)
[2020-07-09 22:34] VITALS: BP 142/76
[2020-07-10 00:41] VITALS: BP 125/75
[2020-07-10 04:00] VITALS: BP 114/72
[2020-07-10] MEDS: LACTATED RINGERS 1,000 ML IV SCH ×2 (05:07→12:47)
[2020-07-10 06:13] LABS: BASOPHILS # (AUTO) 0.1 10^3/uL (0.0-0.1); BASOPHILS % (AUTO) 0 % (0-10); EOSINOPHILS % (AUTO) 0 % (0-10); HEMATOCRIT 27 % (35-52); HEMOGLOBIN 8.8 g/dL (11.5-16.0); LYMPHOCYTES # (AUTO) 1.2 10^3/uL (1.0-4.0); LYMPHOCYTES % (AUTO) 5 % (12-44); MEAN CORPUSCULAR HEMOGLOBIN 29 pg (25-34); MEAN CORPUSCULAR HGB CONC 33 g/dL (32-36); MEAN CORPUSCULAR VOLUME 86 fL (80-99); MEAN PLATELET VOLUME 10.9 fL (9.0-12.2); MONOCYTES # (AUTO) 1.6 10^3/uL (0.0-1.0); MONOCYTES % (AUTO) 6 % (0-12); NEUTROPHILS # (AUTO) 21.6 10^3/uL (1.8-7.8); NEUTROPHILS % (AUTO) 87 % (42-75); PLATELET COUNT 343 10^3/uL (130-400); WHITE BLOOD COUNT 24.8 10^3/uL (4.3-11.0)
[2020-07-10 06:27] LABS: ALBUMIN 2.8 GM/DL (3.2-4.5); CHLORIDE 106 MMOL/L (98-107); POTASSIUM 3.2 MMOL/L (3.6-5.0); SODIUM 141 MMOL/L (135-145)
[2020-07-10 06:28] LABS: CALCIUM 8.3 MG/DL (8.5-10.1)
[2020-07-10 06:29] LABS: GLUCOSE 157 MG/DL (70-105)
[2020-07-10 06:30] LABS: TOTAL PROTEIN 6.6 GM/DL (6.4-8.2)
[2020-07-10 06:31] LABS: BILIRUBIN,TOTAL 0.6 MG/DL (0.1-1.0); CARBON DIOXIDE 22 MMOL/L (21-32)
[2020-07-10 06:33] LABS: ALKALINE PHOSPHATASE 86 U/L (40-136); CREATININE SERUM 0.89 MG/DL (0.60-1.30); GFR ESTIMATED > 60
[2020-07-10 06:34] LABS: BUN/CREATININE RATIO 16
[2020-07-10 06:35] LABS: BAND NEUTROPHILS 7 %; HYPOCHROMASIA SLIGHT; LYMPHOCYTES % (MANUAL) 6 %; MONOCYTES % (MANUAL) 8 %; NEUTROPHILS % (MANUAL) 79 %
[2020-07-10 06:36] LABS: ALANINE AMINOTRANSFERASE 10 U/L (0-55); ANISOCYTOSIS SLIGHT
[2020-07-10] MEDS ORDERED: KCL 20 MEQ TAB (K-DUR) PO ONE (07:45)
[2020-07-10 08:00] VITALS: BP 122/76
[2020-07-10] MEDS ORDERED: MULT-166 PO (08:37)
[2020-07-10] MEDS ORDERED: ASPI-1238 PO (08:37)
[2020-07-10] MEDS ORDERED: DOCU100T2 PO ×2 (08:37)
[2020-07-10] MEDS ORDERED: OMEP20CA18 PO (08:37)
[2020-07-10] MEDS ORDERED: SERT50TA2 PO (08:37)
[2020-07-10] MEDS ORDERED: LORA10TA76 PO (08:37)
[2020-07-10] MEDS ORDERED: MENT7.5L3 MM (08:37)
[2020-07-10] MEDS ORDERED: MTP25TSR PO (08:37)
[2020-07-10] MEDS ORDERED: LEVO50CA4 PO (08:37)
[2020-07-10] MEDS ORDERED: ACET325C7 PO (08:37)
[2020-07-10] MEDS ORDERED: CHOL10007 PO (08:37)
[2020-07-10] MEDS ORDERED: MENT118G TP ×2 (08:37)
[2020-07-10] MEDS ORDERED: MAG30ORA2 PO (08:37)
[2020-07-10] MEDS ORDERED: GABA300C PO (08:37)
[2020-07-10] MEDS ORDERED: VITA400C60 PO (08:37)
[2020-07-10] MEDS ORDERED: LISI20TA26 PO (08:37)
[2020-07-10] MEDS ORDERED: TRZ50T PO (08:37)
[2020-07-10] MEDS ORDERED: POLY17PO6 PO (08:37)
[2020-07-10] MEDS ORDERED: CALC-1026 PO (08:37)
[2020-07-10] MEDS ORDERED: ASCO-262 PO (08:37)
[2020-07-10] MEDS ORDERED: GINK60TA2 PO (08:37)
[2020-07-10] MEDS: meTOprolol TARTRATE 25 MG (LOPRESSOR) TABLET PO SCH ×2 (08:40→20:58)
[2020-07-10] MEDS: lisINopril 20 MG (PRINIVIL) TABLET PO SCH (08:40)
[2020-07-10] MEDS ORDERED: ENOXAPARIN 40 MG/0.4 ML (LOVENOX) SYR SC SCH ×3 (09:00→15:00)
--- NOTE | 2020-07-10 10:06 | History & Physical ---
HPI History of Present Illness: 65 yo female came to ER from nursing facility due to back pain, nausea and vomiting for a few days. She denies any other symptoms, no fever, cough, shortness of breath or diarrhea. She states this morning she already feels much better. She has a history of CVA with left sided hemiparesis, she is able to transfer with a sit to stand assist to wheelchair. Source: patient Date seen by provider: Jul 10, 2020 Time Seen by Provider: 09:45 Attending Physician Som Zhou MD PCP Center/[facility] Consult Date of Admission Jul 09, 2020 at 18:57 Home Medications Home Medications Reviewed patient Home Medication Reconciliation performed by pharmacy medication reconciliations injection molding process technician and/or nursing. Patients Allergies have been reviewed. Allergies Coded Allergies: No Known Drug Allergies (Unverified , 12/04/11) BQJ-Wuapil-Huyrex Hx Patient Social History Smoking Status: Former Smoker Former smoker/When Quit: Apr 13, 1976 Recent Hopitalizations: No Alcohol Use?: No Have you traveled recently?: No Immunizations Up To Date Tetanus Booster (TDap): Unknown Date of Influenza Vaccine: Feb 12, 2016 Past Medical History PMHx: CVA HTN Hypothyroidism Family Medical History Significant Family History: No Pertinent Family Hx Family History: FH: lung cancer 19 FATHER 19 MOTHER Stroke (cerebrovascular) 19 MOTHER Review of Systems ([facility]) Constitutional: No fever EENTM: No nose congestion, No throat pain Respiratory: No cough, No short of breath Cardiovascular: No chest pain Gastrointestinal: No abdominal pain, No constipation, No diarrhea; nausea, vomiting Genitourinary: decreased output Skin: No rash Psychiatric/Neurological: No Symptoms Reported Reviewed Test Results Reviewed Test Results Lab Laboratory Tests Test 07/09/20 18:31 07/09/20 18:33 07/09/20 18:50 07/10/20 05:23 Range/Units Urine Color YELLOW Urine Clarity CLOUDY H Urine pH 6.0 5-9 Urine Specific [place] >=1.030 1.016-1.022 Urine Protein 3+ H NEGATIVE Urine Glucose (UA) NEGATIVE NEGATIVE Urine Ketones 1+ H NEGATIVE Urine Nitrite POSITIVE H NEGATIVE Urine Bilirubin NEGATIVE NEGATIVE Urine Urobilinogen 2.0 < = 1.0 MG/DL Urine Leukocyte Esterase TRACE H NEGATIVE Urine RBC (Auto) 1+ H NEGATIVE Urine RBC 5-10 H /HPF Urine WBC >100 H /HPF Urine Squamous Epithelial Cells 10-25 H /HPF Urine Crystals NONE /LPF Urine Bacteria MODERATE H /HPF Urine Casts NONE /LPF Urine Mucus NEGATIVE /LPF Urine Culture Indicated YES White Blood Count 14.9 H 24.8 H 4.3-11.0 10^3/uL Red Blood Count 4.00 3.08 L 3.80-5.11 10^6/uL Hemoglobin 11.3 L 8.8 #L 11.5-16.0 g/dL Hematocrit 34 L 27 L 35-52 % Mean Corpuscular Volume 85 86 80-99 fL Mean Corpuscular Hemoglobin 28 29 25-34 pg Mean Corpuscular Hemoglobin Concent 33 33 32-36 g/dL Red Cell Distribution Width 15.1 H 15.6 H 10.0-14.5 % Platelet Count 417 H 343 130-400 10^3/uL Mean Platelet Volume 9.9 10.9 9.0-12.2 fL Immature Granulocyte % (Auto) 1 1 % Neutrophils (%) (Auto) 87 H 87 H 42-75 % Lymphocytes (%) (Auto) 7 L 5 L 12-44 % Monocytes (%) (Auto) 5 6 0-12 % Eosinophils (%) (Auto) 0 0 0-10 % Basophils (%) (Auto) 0 0 0-10 % Neutrophils # (Auto) 12.9 H 21.6 H 1.8-7.8 10^3/uL Lymphocytes # (Auto) 1.0 1.2 1.0-4.0 10^3/uL Monocytes # (Auto) 0.8 1.6 H 0.0-1.0 10^3/uL Eosinophils # (Auto) 0.0 0.0 0.0-0.3 10^3/uL Basophils # (Auto) 0.1 0.1 0.0-0.1 10^3/uL Immature Granulocyte # (Auto) 0.1 0.3 H 0.0-0.1 10^3/uL Neutrophils % (Manual) 84 79 % Lymphocytes % (Manual) 13 6 % Monocytes % (Manual) 2 8 % Eosinophils % (Manual) 1 % Basophils % (Manual) 0 % Band Neutrophils 0 7 % Toxic Granulation 1+ Polychromasia SLIGHT Hypochromasia SLIGHT SLIGHT Anisocytosis SLIGHT SLIGHT Target Cells SLIGHT Prothrombin Time 19.7 H 12.2-14.7 SEC INR Comment 1.6 H 0.8-1.4 Sodium Level 142 141 135-145 MMOL/L Potassium Level 3.6 3.2 L 3.6-5.0 MMOL/L Chloride Level 104 106 98-107 MMOL/L Carbon Dioxide Level 25 22 21-32 MMOL/L Anion Gap 13 13 5-14 MMOL/L Blood Urea Nitrogen 13 14 7-18 MG/DL Creatinine 0.92 0.89 0.60-1.30 MG/DL Estimat Glomerular Filtration Rate > 60 > 60 BUN/Creatinine Ratio 14 16 Glucose Level 177 H 157 H 70-105 MG/DL Calcium Level 9.5 8.3 L 8.5-10.1 MG/DL Corrected Calcium 9.9 9.3 8.5-10.1 MG/DL Total Bilirubin 0.6 0.6 0.1-1.0 MG/DL Aspartate Amino Transf (AST/SGOT) 14 14 5-34 U/L Alanine Aminotransferase (ALT/SGPT) 12 10 0-55 U/L Alkaline Phosphatase 108 86 40-136 U/L Total Protein 8.5 H 6.6 6.4-8.2 GM/DL Albumin 3.5 2.8 L 3.2-4.5 GM/DL Lactic Acid Level 1.84 0.50-2.00 MMOL/L Radiology CT abd/pelvis 07/09: IMPRESSION: 1. Moderate right hydroureteronephrosis with fat stranding about the right ureter. No ureteral stones appreciated. Findings could be due to a recently passed stone versus pyelonephritis. Correlate with symptoms. 2. Fat stranding within the pelvis with minimal free fluid possibly due to cystitis. Urinary bladder is underdistended and poorly characterized. Adjacent diverticulitis in the differential but felt to be less likely. 3. Stones suspected within the gallbladder without surrounding inflammatory change. 4. Nonobstructive left-sided nephrolithiasis. Other findings as above. Physical Exam-([facility]) Physical Exam Vital Signs VS - Last 72 Hours, by Label 07/09/20 07/09/20 07/09/20 07/09/20 17:56 20:00 20:15 21:11 Temp 37.7 36.9 Pulse 99 102 89 Resp 17 20 18 B/P (MAP) 168/76 (106) 154/84 (107) 137/88 Pulse Ox 98 96 96 O2 Delivery Room Air Room Air Room Air Room Air 07/09/20 07/09/20 07/09/20 07/09/20 21:14 21:26 21:40 21:50 Temp 39.4 Pulse 103 136 140 Resp 18 B/P (MAP) 175/125 (142) Pulse Ox 89 99 O2 Delivery Room Air Nasal Cannula O2 Flow Rate 4.00 07/09/20 07/09/20 07/10/20 07/10/20 22:33 22:34 00:41 01:00 Temp 36.8 36.8 37.0 Pulse 120 99 95 Resp 18 20 B/P (MAP) 142/76 (98) 125/75 (92) Pulse Ox 95 O2 Delivery Nasal Cannula Nasal Cannula O2 Flow Rate 4.00 4.00 07/10/20 07/10/20 07/10/20 07/10/20 04:00 06:35 07:26 08:00 Temp 36.0 36.0 Pulse 81 78 83 Resp 18 20 B/P (MAP) 114/72 (86) 122/76 (91) Pulse Ox 98 98 98 O2 Delivery Nasal Cannula Nasal Cannula Nasal Cannula O2 Flow Rate 4.00 3.00 4.00 07/10/20 08:48 O2 Delivery Room Air Capillary Refill : Less Than 3 Seconds General Appearance: no apparent distress Respiratory: lungs clear, normal breath sounds Cardiovascular: regular rate, rhythm, no murmur Gastrointestinal: normal bowel sounds, non tender, soft Extremities: no pedal edema Neurologic/Psychiatric: alert, normal mood/affect Skin: normal color, warm/dry Assessment/Plan Assessment/Plan Admission Status: Inpatient Order (span 2 midnights) Reason for Inpatient Admission: Sepsis with pyelonephritis and underlying comorbidities high risk for decompensation. (1) Sepsis Status: Acute Assessment & Plan: Secondary to pyelonephritis. Improving this am, will decre ase IVF rate given she is already newly requiring supplemental oxygen. Qualifiers: Qualified Codes: A41.51 - Sepsis due to Escherichia coli [e. coli]; R65.20 - Severe sepsis without septic shock; J96.01 - Acute respiratory failure with hypoxia (2) Pyelonephritis Status: Acute Assessment & Plan: Urine culture growing E coli, continue ceftriaxone, await sensitivities. (3) Hemiparesis affecting left side as late effect of stroke Status: Chronic (4) Nephrolithiasis Status: Acute Assessment & Plan: Non obstructing left, suspect passed an obstructing stone on right. Hold home vitamin C and calcium supplement. (5) Hydronephrosis Status: Acute Assessment & Plan: Right hydronephrosis suspected to be secondary to recently passed stone, but she did not note any stone passage. Urology consulted, appreciate recommendations. Qualifiers: Qualified Codes: N13.39 - Other hydronephrosis (6) Hypertension Status: Chronic Assessment & Plan: Resume home metoprolol and lisinopril Qualifiers: Qualified Codes: I10 - Essential (primary) hypertension (7) Hypothyroidism Status: Chronic Assessment & Plan: Resume home levothyroxine (8) GERD (gastroesophageal reflux disease) Status: Chronic Assessment & Plan: Resume home PPI (9) Neuropathy Status: Chronic Assessment & Plan: Resume home gabapentin (10) Depression Status: Chronic Assessment & Plan: Resume home medications Qualifiers: (11) DVT prophylaxis Status: Acute Assessment & Plan: Enoxaparin SOM ZHOU MD Jul 10, 2020 10:06
[2020-07-10] MEDS ORDERED: polyethylene glycoL POWDER 17 GM (MIRALAX) PACK PO PRN (10:15)
[2020-07-10] MEDS ORDERED: ANTACID SUSP 30 ML UDC (MYLANTA) PO PRN (10:15)
[2020-07-10] MEDS ORDERED: NON-FORMULARY MEDICATION 1 EA EA (Menthol (Biofreeze) 1 APPLIC) TP PRN (10:15)
--- NOTE | 2020-07-10 11:02 | Diagnostic Imaging Report ---
EXAMINATION: Supine abdomen at 10:28 AM. INDICATION: Right flank pain. FINDINGS: The CT abdomen/pelvis exam performed on 07/10/2015 noted several nonobstructive calculi within the right kidney including two contiguous calculi in the inferior pole of the right kidney. These had a conglomerate size of approximately 9 mm. On this exam, there is a similar sized calcific density overlying the inferior pole of the right kidney. The other much smaller nonobstructive calculi are not as well visualized. The previous study did show hydroureter and hydronephrosis of the right collecting system but failed to reveal any evidence for an obstructive calculus. On this exam, there is still no evidence for a calculus along the path of the right ureter. There is a small linear area of increased density overlying the right transverse process of L3. This is probably within the transverse process itself. There is no other pathological calcification identified. There is gas in both the large and small bowel in a nonspecific fashion. There is no sign of a bowel obstruction. There is a moderate amount of fecal material in the rectosigmoid and descending colon. There is no mass or organomegaly noted. The osseous structures are intact. IMPRESSION: 1. The nonobstructive calculi within the right kidney in the inferior pole are again noted. There is still no evidence for a calculus along the path of the right ureter. 2. There is no acute abnormality identified otherwise. Dictated by: Dictated on workstation # [id number]
[2020-07-10 12:00] VITALS: BP 121/72
--- NOTE | 2020-07-10 12:07 | CONSULTATION REPORT ---
DATE OF SERVICE: 07/10/2020 ATTENDING PHYSICIAN: Dr. Zhou. SUMMARY: After reviewing the patient's record, x-rays, interviewing her and examining her, this is a 65-year-old white lady who has been having some right flank pain, nausea and vomiting, presented to the emergency room and CAT scan revealed right hydronephrosis, hydroureter, but no actual stone in the ureter. She does have bilateral renal stone, more significant on the right side. She was not aware she has stone, never passed a stone. No family history of urolithiasis. She does feel better and pain is much better. I reviewed her history and physical completely. She has no right CVA tenderness. IMPRESSION: Right flank pain with right hydroureteronephrosis, possibly passed a stone without being aware and having some residual symptoms and may be Pyelonephritis, although doubt at this point. PLAN: We will get a KUB to see if we can visualize the stone, especially the right ones, later go through treatment, now recommend antibiotics for a total of 10 days. We will see her back in the office in two weeks. We will repeat a noncontrast CT abdomen and pelvis to make sure everything went back to normal and then we will discuss the plan on the stones with the patient at that time. The plan was fully explained to the patient. Job ID: [id number] DocumentID: [id number] Dictated Date: 07/10/2020 09:57:45 User Interface Artist Date: 07/10/2020 12:06:43 Dictated By: SUSAN DAVALOS MD MTDD
[2020-07-10 15:51] VITALS: BP 139/78
[2020-07-10] MEDS: ONDANSETRON 4 MG/2 ML (SDV) Z0FRAN IV PRN (15:59)
[2020-07-10] MEDS ORDERED: cefTRIAXone 1,000 MG/SWFI 10 ML IV PUSH IV SCH ×2 (18:00)
[2020-07-10 20:37] VITALS: BP 140/82
[2020-07-10] MEDS: GABAPENTIN 300 MG (NEURONTIN) CAP PO SCH (20:57)
[2020-07-10] MEDS: DOCUSATE SODIUM 100 MG (COLACE) CAP PO SCH (20:58)
[2020-07-10] MEDS ORDERED: traZODone 50 MG (DESYREL) TAB PO SCH (21:00)
[2020-07-10] MEDS ORDERED: NON-FORMULARY MEDICATION 1 EA EA (Menthol (Biofreeze) 1 APPLIC) TP SCH (21:00)
[2020-07-10] MEDS ORDERED: PANTOPRAZOLE 20 MG TABLET (PROTONIX) PO SCH (21:00)
[2020-07-11 00:28] VITALS: BP 126/58
[2020-07-11] MEDS: LACTATED RINGERS 1,000 ML IV SCH ×2 (01:00→08:32)
[2020-07-11 04:18] VITALS: BP 130/76
[2020-07-11 05:38] LABS: HEMOGLOBIN 8.9 g/dL (11.5-16.0); MEAN PLATELET VOLUME 10.9 fL (9.0-12.2); WHITE BLOOD COUNT 15.9 10^3/uL (4.3-11.0)
[2020-07-11 06:17] LABS: BUN/CREATININE RATIO 17; CALCIUM 8.3 MG/DL (8.5-10.1); CARBON DIOXIDE 22 MMOL/L (21-32); CHLORIDE 110 MMOL/L (98-107); CREATININE SERUM 0.71 MG/DL (0.60-1.30); GFR ESTIMATED > 60; GLUCOSE 120 MG/DL (70-105); POTASSIUM 3.5 MMOL/L (3.6-5.0); SODIUM 145 MMOL/L (135-145)
[2020-07-11] MEDS ORDERED: LEVOTHYROXINE 50 MCG (LEVOTHROID) TAB PO SCH (06:30)
[2020-07-11] MEDS ORDERED: KCL 20 MEQ TAB (K-DUR) PO ONE (07:45)
[2020-07-11 08:00] VITALS: BP 132/74
[2020-07-11] MEDS: ONDANSETRON 4 MG/2 ML (SDV) Z0FRAN IV PRN (08:27)
[2020-07-11] MEDS: meTOprolol TARTRATE 25 MG (LOPRESSOR) TABLET PO SCH (08:27)
[2020-07-11] MEDS: lisINopril 20 MG (PRINIVIL) TABLET PO SCH (08:28)
[2020-07-11] MEDS: GABAPENTIN 300 MG (NEURONTIN) CAP PO SCH (08:28)
[2020-07-11] MEDS: DOCUSATE SODIUM 100 MG (COLACE) CAP PO SCH (08:28)
[2020-07-11] MEDS ORDERED: SERTRALINE 50 MG (ZOLOFT) TABLET PO SCH (09:00)
[2020-07-11] MEDS ORDERED: ASPIRIN E.C. 81 MG (ECOTRIN) TAB PO SCH (09:00)
--- NOTE | 2020-07-11 10:08 | Progress Note - Urology ---
Progress Note-Urology Progress Notes/Assess & Plan Progress/Assessment & Plan KUB ABLE TO SEE STONES. SEE HER IN 2 WEEKS IN OFFICE AND DECIDE ON PLAN Final Diagnosis RT RENAL STONES SUSAN DAVALOS MD Jul 11, 2020 10:08
[2020-07-11] MEDS ORDERED: CEFD300C3 PO (10:28)
--- NOTE | 2020-07-11 10:48 | Discharge Summary ---
Discharge Summary Hospital Course Problems/Diagnosis: (1) Sepsis Status: Resolved Resolution Date/Time: 07/11/20 @ 10:45 Assessment & Plan: Secondary to pyelonephritis. Resolved with antibiotics and IVF. Qualifiers: Qualified Codes: A41.51 - Sepsis due to Escherichia coli [e. coli]; R65.20 - Severe sepsis without septic shock; J96.01 - Acute respiratory failure with hypoxia (2) Pyelonephritis Status: Resolved Resolution Date/Time: 07/11/20 @ 10:46 Assessment & Plan: Urine culture growing E coli, resistant to ampicillin and Bactrim. Discharged on cefdinir. (3) Hemiparesis affecting left side as late effect of stroke Status: Chronic (4) Nephrolithiasis Status: Acute Assessment & Plan: Non obstructing left, suspect passed an obstructing stone on right. Hold home vitamin C and calcium supplement. (5) Hydronephrosis Status: Acute Assessment & Plan: Right hydronephrosis suspected to be secondary to recently passed stone, but she did not note any stone passage. Urology consulted, appreciate recommendations. Qualifiers: Qualified Codes: N13.39 - Other hydronephrosis (6) Hypertension Status: Chronic Assessment & Plan: Resume home metoprolol and lisinopril Qualifiers: Qualified Codes: I10 - Essential (primary) hypertension (7) Hypothyroidism Status: Chronic Assessment & Plan: Resume home levothyroxine (8) GERD (gastroesophageal reflux disease) Status: Chronic Assessment & Plan: Resume home PPI (9) Neuropathy Status: Chronic Assessment & Plan: Resume home gabapentin (10) Depression Status: Chronic Assessment & Plan: Resume home medications Qualifiers: Hospital Course Date of Admission: Jul 09, 2020 at 18:57 Admission Diagnosis : Family Physician/Provider: Maria C Arguello Date of Discharge: 07/11/20 Discharge Diagnosis: See problem list Hospital Course: See problem list Labs and Pending Lab Test: Laboratory Tests 07/11/20 05:30: White Blood Count 15.9H, Red Blood Count 3.10L, Hemoglobin 8.9L, Hematocrit 27L, Mean Corpuscular Volume 87, Mean Corpuscular Hemoglobin 29, Mean Corpuscular Hemoglobin Concent 33, Red Cell Distribution Width 15.9H, Platelet Count 373, Mean Platelet Volume 10.9, Sodium Level 145, Potassium Level 3.5L, Chloride Level 110H, Carbon Dioxide Level 22, Anion Gap 13, Blood Urea Nitrogen 12, Creatinine 0.71, Estimat Glomerular Filtration Rate > 60, BUN/Creatinine Ratio 17, Glucose Level 120H, Calcium Level 8.3L Microbiology 07/09/20 Blood Culture - Preliminary, Resulted No growth 07/09/20 Urine Culture - Final, Complete Escherichia coli Home Meds Active Cefdinir 300 Mg Capsule 300 Mg PO BID 7 Days Reported Zoloft (Sertraline HCl) 50 Mg Tablet 50 Mg PO DAILY Vitamin E (Vitamin E Acetate) 400 Unit Capsule 400 Unit PO DAILY Vitamin D3 (Cholecalciferol (Vitamin D3)) 25 Mcg Capsule 50 Mcg PO DAILY Trazodone HCl 50 Mg Tablet 50 Mg PO HS Metoprolol Succinate 25 Mg Tab.er.24h 25 Mg PO DAILY HOLD IF PULSE <50BPM OR BP<100/500 Omeprazole 20 Mg Capsule.dr 20 Mg PO HS Neurontin (Gabapentin) 300 Mg Capsule 300 Mg PO BID Mylanta Suspension (Al Hydrox/Mg Hydrox/Simethicone) 30 Ml Oral.susp 30 Ml PO Q4H PRN Multivitamins with Minerals (Multivitamin with Minerals) 1 Each Tablet 1 Each PO DAILY Miralax (Polyethylene Glycol 3350) 17 Gm Powd.pack 17 Gm PO DAILY PRN Lisinopril 20 Mg Tablet 20 Mg PO DAILY HOLD IF PULSE <50BPM OR BP <100/50 Levothyroxine (Levothyroxine Sodium) 50 Mcg Capsule 50 Mcg PO DAILY Spring (Menthol) 7.5 Mg Lozenge 7.5 Mg MM EVERY 2 HOURS PRN Ginkgo (Ginkgo Biloba) 60 Mg Tablet 60 Mg PO BID Docusate Sodium 100 Mg Tablet 100 Mg PO BID Docusate Sodium 100 Mg Tablet 100 Mg PO DAILY PRN Claritin (Loratadine) 10 Mg Tablet 10 Mg PO DAILY Biofreeze (Menthol) 118 Ml Gel..ml. 1 Applic TP EVERY 2 HOURS PRN Biofreeze (Menthol) 118 Ml Gel..ml. 1 Applic TP HS APPLY TO LEFT LEG/FOOT Aspirin EC (Aspirin) 81 Mg Tablet.dr 81 Mg PO DAILY Tylenol (Acetaminophen) 325 Mg Capsule 650 Mg PO Q4H PRN Assessment/Pt DC Instructions Follow up will be at nursing facility Discharge Diet: Regular Diet Activity as Tolerated: Yes Discharge Physical Examination Allergies: Coded Allergies: No Known Drug Allergies (Unverified , 12/04/11) General Appearance: No Apparent Distress Respiratory: Lungs Clear, Normal Breath Sounds Cardiovascular: Regular Rate, Rhythm, No Murmur Gastrointestinal: Normal Bowel Sounds, Non Tender Extremity: No Pedal Edema Skin: Warm/Dry Neurologic/Psychiatric: Alert Copy Copies To 1: JULES White BETHANY N MD Jul 11, 2020 10:48
== END 2020-07-11 12:00 | disposition short-term general hospital (02) | DRG 872 ==
LOC: EDUNIT# 17:40 → ER 17:42 → 4TH 18:57
PROVIDERS: ADMIT Family Medicine; ATTEND Family Medicine
DX: A41.9 Sepsis, unspecified organism (principal); N13.6 Pyonephrosis; I69.354 Hemiplegia and hemiparesis following cerebral infarction affecting left non-dominant side; G43.909 Migraine, unspecified, not intractable, without status migrainosus; E03.9 Hypothyroidism, unspecified; E11.9 Type 2 diabetes mellitus without complications; Z79.82 Long term (current) use of aspirin; Z87.891 Personal history of nicotine dependence; B96.20 Unspecified Escherichia coli [E. coli] as the cause of diseases classified elsewhere; I10 Essential (primary) hypertension; K21.9 Gastro-esophageal reflux disease without esophagitis; G62.9 Polyneuropathy, unspecified; F32.9 Major depressive disorder, single episode, unspecified
CPT/HCPCS: 36415; 74018; 74176; 80048; 80053; 81000; 83605; 85007; 85027; 85610; 87040; 87077; 87088; 87186; 94760; 96361; 96374; 96375

== ENCOUNTER 2020-07-22 22:00 | Inpatient (IN) | payer MEDICARE, MEDICAID ==
[~2020-07-22] VITALS: Ht 166.4 cm; Wt 116.3 kg
[~2020-07-22 22:00] MED LIST changes: +ACET325C7 PO; +ASCO-262 PO; +ASPI-1238 PO; +CALC-1026 PO; +CEFD300C3 PO; +CHOL10007 PO; +DOCU100T2 PO; +GABA300C PO; +GINK60TA2 PO; +LEVO50CA4 PO; +LISI20TA26 PO; +LORA10TA76 PO; +MAG30ORA2 PO; +MENT118G TP; +MENT7.5L3 MM; +MULT-166 PO; +OMEP20CA18 PO; +POLY17PO6 PO; +SERT50TA2 PO; +TRZ50T PO; +VITA400C60 PO
[2020-07-22] MEDS ORDERED: KETOROLAC 30 MG/ML VIAL IVP ONE (23:00)
[2020-07-22] MEDS ORDERED: NS IV 500 ML 500 ML IV ONE (23:00)
[2020-07-22 23:05] LABS: BASOPHILS # (AUTO) 0.1 10^3/uL (0.0-0.1); BASOPHILS % (AUTO) 0 % (0-10); EOSINOPHILS % (AUTO) 0 % (0-10); HEMATOCRIT 37 % (35-52); HEMOGLOBIN 11.9 g/dL (11.5-16.0); LYMPHOCYTES # (AUTO) 1.9 10^3/uL (1.0-4.0); LYMPHOCYTES % (AUTO) 10 % (12-44); MEAN CORPUSCULAR HEMOGLOBIN 28 pg (25-34); MEAN CORPUSCULAR HGB CONC 32 g/dL (32-36); MEAN CORPUSCULAR VOLUME 86 fL (80-99); MEAN PLATELET VOLUME 10.6 fL (9.0-12.2); MONOCYTES # (AUTO) 1.5 10^3/uL (0.0-1.0); MONOCYTES % (AUTO) 8 % (0-12); NEUTROPHILS # (AUTO) 15.7 10^3/uL (1.8-7.8); NEUTROPHILS % (AUTO) 82 % (42-75); PLATELET COUNT 431 10^3/uL (130-400); WHITE BLOOD COUNT 19.2 10^3/uL (4.3-11.0)
--- NOTE | 2020-07-22 23:05 | ED GU-Female ---
General Stated Complaint: KIDNEY STONES Source: patient Exam Limitations: no limitations History of Present Illness Date Seen by Provider: Jul 22, 2020 Time Seen by Provider: 22:36 Initial Comments Patient to the ER by private conveyance from the [facility] [place] with chief complaint of pain uncontrolled for the past several days related to kidney stones. She says she has been having a difficult time urinating since this morning. She has a history of kidney stones and was diagnosed here in the ER with them earlier last week. She was given Tylenol and says it did not help her pain. Patient was discharged from the hospital July 11 with pyelonephritis secondary to suspected right sided obstructing stone. She has some remaining nonobstructing stones on the left. She was sent home on cefdinir and Tylenol 650 mg. Allergies and Home Medications Allergies Coded Allergies: No Known Drug Allergies (Unverified , 12/04/11) Home Medications Acetaminophen 325 Mg Capsule, 650 MG PO Q4H PRN for PAIN-MODERATE (5-7), (Reported) Aspirin 81 Mg Tablet.dr, 81 MG PO DAILY, (Reported) Cefdinir 300 Mg Capsule, 300 MG PO BID Prescribed by: SOM POTTER on 07/11/20 1028 Cholecalciferol (Vitamin D3) 25 Mcg Capsule, 50 MCG PO DAILY, (Reported) Docusate Sodium 100 Mg Tablet, 100 MG PO DAILY PRN for CONSTIPATION-1ST LINE, (Reported) Docusate Sodium 100 Mg Tablet, 100 MG PO BID, (Reported) Gabapentin 300 Mg Capsule, 300 MG PO BID, (Reported) Ginkgo Biloba 60 Mg Tablet, 60 MG PO BID, (Reported) Levothyroxine Sodium 50 Mcg Capsule, 50 MCG PO DAILY, (Reported) Lisinopril 20 Mg Tablet, 20 MG PO DAILY, (Reported) HOLD IF PULSE <50BPM OR BP <100/50 Loratadine 10 Mg Tablet, 10 MG PO DAILY, (Reported) Mag Hydrox/Al Hydrox/Simeth 30 Ml Oral.susp, 30 ML PO Q4H PRN for HEARTBURN, (Reported) Menthol 118 Ml Gel..ml., 1 APPLIC TP HS, (Reported) APPLY TO LEFT LEG/FOOT Menthol 118 Ml Gel..ml., 1 APPLIC TP EVERY 2 HOURS PRN for PAIN-BREAKTHROUGH, (Reported) Menthol 7.5 Mg Lozenge, 7.5 MG MM EVERY 2 HOURS PRN for SORE THROAT, (Reported) Metoprolol Succinate 25 Mg Tab.er.24h, 25 MG PO DAILY, (Reported) HOLD IF PULSE <50BPM OR BP<100/500 Multivitamin with Minerals 1 Each Tablet, 1 EACH PO DAILY, (Reported) Omeprazole 20 Mg Capsule.dr, 20 MG PO HS, (Reported) Polyethylene Glycol 3350 17 Gm Powd.pack, 17 GM PO DAILY PRN for CONSTIPATION- 2ND LINE, (Reported) Sertraline HCl 50 Mg Tablet, 50 MG PO DAILY, (Reported) Trazodone HCl 50 Mg Tablet, 50 MG PO HS, (Reported) Vitamin E Acetate 400 Unit Capsule, 400 UNIT PO DAILY, (Reported) Patient Home Medication List Home Medication List Reviewed: Yes Review of Systems Review of Systems Constitutional: No chills, No diaphoresis EENTM: No ear discharge, No ear pain Respiratory: No cough, No short of breath Cardiovascular: No edema, No palpitations Gastrointestinal: No abdominal pain; nausea (earlier); No vomiting Genitourinary: see HPI (back pain); denies dysuria; frequency Musculoskeletal: see HPI, back pain; No joint pain All Other Systemes Reviewed Negative Unless Noted: Yes Past Arsthxb-Cpytrk-Wazlng Hx Patient Social History Alcohol Use: Denies Use Smoking Status: Never a Smoker Recent Hopitalizations: No Immunizations Up To Date Tetanus Booster (TDap): Unknown Date of Influenza Vaccine: Feb 12, 2016 Seasonal Allergies Seasonal Allergies: Yes Past Medical History Surgeries: Yes (HEART CATH 1 MONTH AGO) Breast, Hysterectomy Respiratory: Yes Asthma Cardiac: Yes (cardiac recorder implanted lt upper chest) Hypertension Neurological: Yes (CVA 07/2014; lt upper/lower flaccid) Headaches /Migraines, Stroke Reproductive Disorders: No Female Reproductive Disorders: Denies BUSGIRL History: Hysterectomy Sexually Transmitted Disease: No HIV/AIDS: No Gastrointestinal: No Musculoskeletal: No Endocrine: Yes Hypothyroidsim, Diabetes, Non-Insulin dep Hearing Impairment: Denies Cancer: No Psychosocial: No Integumentary: No Blood Disorders: No Family Medical History FH: lung cancer 19 FATHER 19 MOTHER Stroke (cerebrovascular) 19 MOTHER No Pertinent Family Hx Physical Exam Vital Signs Capillary Refill : Height, Weight, BMI Height: 5'5" Weight: 292lbs. 11.2oz. 132.535852rx; 29.93 BMI Method:Stated General Appearance: WD/WN, moderate distress HEENT: PERRL/EOMI, normal ENT inspection Neck: full range of motion, normal inspection Cardiovascular: normal peripheral pulses, regular rate, rhythm Respiratory: lungs clear, normal breath sounds, no respiratory distress, no accessory muscle use Gastrointestinal: normal bowel sounds, non tender, soft Back: normal inspection, no vertebral tenderness, CVA tenderness (R), CVA tenderness (L) Extremities: non-tender, normal inspection Neurologic/Psychiatric: alert, oriented x 3, other (Right-sided deficits, chronic) Skin: normal color, warm/dry Progress/Results/Core Measures Suspected Sepsis SIRS Temperature: Pulse: Respiratory Rate: Laboratory Tests 07/22/20 23:00: White Blood Count 19.2H Blood Pressure / Mean: Laboratory Tests 07/22/20 23:00: Creatinine 0.86, INR Comment 1.4, Platelet Count 431H, Total Bilirubin 0.6 Results/Orders Lab Results Laboratory Tests Test 07/22/20 23:00 07/22/20 23:13 Range/Units White Blood Count 19.2 H 4.3-11.0 10^3/uL Red Blood Count 4.32 3.80-5.11 10^6/uL Hemoglobin 11.9 11.5-16.0 g/dL Hematocrit 37 35-52 % Mean Corpuscular Volume 86 80-99 fL Mean Corpuscular Hemoglobin 28 25-34 pg Mean Corpuscular Hemoglobin Concent 32 32-36 g/dL Red Cell Distribution Width 15.6 H 10.0-14.5 % Platelet Count 431 H 130-400 10^3/uL Mean Platelet Volume 10.6 9.0-12.2 fL Immature Granulocyte % (Auto) 0 % Neutrophils (%) (Auto) 82 H 42-75 % Lymphocytes (%) (Auto) 10 L 12-44 % Monocytes (%) (Auto) 8 0-12 % Eosinophils (%) (Auto) 0 0-10 % Basophils (%) (Auto) 0 0-10 % Neutrophils # (Auto) 15.7 H 1.8-7.8 10^3/uL Lymphocytes # (Auto) 1.9 1.0-4.0 10^3/uL Monocytes # (Auto) 1.5 H 0.0-1.0 10^3/uL Eosinophils # (Auto) 0.0 0.0-0.3 10^3/uL Basophils # (Auto) 0.1 0.0-0.1 10^3/uL Immature Granulocyte # (Auto) 0.1 0.0-0.1 10^3/uL Neutrophils % (Manual) 86 % Lymphocytes % (Manual) 11 % Monocytes % (Manual) 3 % Blood Morphology Comment NORMAL Prothrombin Time 17.1 H 12.2-14.7 SEC INR Comment 1.4 0.8-1.4 Activated Partial Thromboplast Time 30 24-35 SEC Sodium Level 144 135-145 MMOL/L Potassium Level 3.5 L 3.6-5.0 MMOL/L Chloride Level 104 98-107 MMOL/L Carbon Dioxide Level 27 21-32 MMOL/L Anion Gap 13 5-14 MMOL/L Blood Urea Nitrogen 7 7-18 MG/DL Creatinine 0.86 0.60-1.30 MG/DL Estimat Glomerular Filtration Rate > 60 BUN/Creatinine Ratio 8 Glucose Level 167 H 70-105 MG/DL Calcium Level 9.0 8.5-10.1 MG/DL Corrected Calcium 9.4 8.5-10.1 MG/DL Total Bilirubin 0.6 0.1-1.0 MG/DL Aspartate Amino Transf (AST/SGOT) 14 5-34 U/L Alanine Aminotransferase (ALT/SGPT) 13 0-55 U/L Alkaline Phosphatase 98 40-136 U/L Total Protein 8.6 H 6.4-8.2 GM/DL Albumin 3.5 3.2-4.5 GM/DL Urine Color YELLOW Urine Clarity CLOUDY H Urine pH 7.5 5-9 Urine Specific [place] 1.010 L 1.016-1.022 Urine Protein NEGATIVE NEGATIVE Urine Glucose (UA) NEGATIVE NEGATIVE Urine Ketones NEGATIVE NEGATIVE Urine Nitrite POSITIVE H NEGATIVE Urine Bilirubin NEGATIVE NEGATIVE Urine Urobilinogen NORMAL < = 1.0 MG/DL Urine Leukocyte Esterase 3+ H NEGATIVE Urine RBC (Auto) 3+ H NEGATIVE Urine RBC 50-100 H /HPF Urine WBC TNTC H /HPF Urine Squamous Epithelial Cells 2-5 /HPF Urine Crystals NONE /LPF Urine Bacteria LARGE H /HPF Urine Casts NONE /LPF Urine Mucus NEGATIVE /LPF Urine Culture Indicated CULTURE PENDING My Orders Orders - KEIRY PATEL Ua Culture If Indicated (07/22/20 22:14) Ed Iv/Invasive Line Start (07/22/20 22:55) Ns Iv 500 Ml (Sodium Chloride 0.9%) (07/22/20 23:00) Ketorolac Injection (Toradol Injection) (07/22/20 23:00) Ct Abd/Pelvis Wo(Kidney Stone) (07/22/20 22:55) Cbc With Automated Diff (07/22/20 22:55) Comprehensive Metabolic Panel (07/22/20 22:55) Bladder Scan (07/22/20 22:55) Straight Cath For Spec.-Adult (07/22/20 23:06) Manual Differential (07/22/20 23:00) Ondansetron Injection (Zofran Injectio (07/22/20 23:15) Pantoprazole Injection (Protonix Injecti (07/22/20 23:15) Ondansetron Injection (Zofran Injectio (07/22/20 23:08) Pantoprazole Injection (Protonix Injecti (07/22/20 23:08) Ceftriaxone For Iv Use (Rocephin For I (07/22/20 23:30) Blood Culture (07/22/20 23:27) Urine Culture (07/22/20 23:27) Protime With Inr (07/22/20:27) Partial Thromboplastin Time (07/22/20 23:27) Ed Iv/Invasive Line Start (07/22/20 23:27) Ed Iv/Invasive Line Start (07/22/20 23:27) Vital Signs Adult Sepsis Patie Q15M (07/22/20 23:27) O2 (07/22/20 23:27) Remove Rings In Anticipation O (07/22/20 23:27) Lactic Acid Analyzer (07/22/20 23:27) Lactated Ringers (Lr 1000 Ml Iv Solution (07/22/20 23:30) Lactated Ringers (Lr 1000 Ml Iv Solution (07/22/20 23:30) Medications Given in ED Current Medications Medications Dose Ordered Sig/Magdi Route Start Time Stop Time Status Last Admin Dose Admin Ketorolac Tromethamine 30 mg ONCE ONCE IVP 07/22/20 23:00 07/22/20 23:01 DC 07/22/20 23:11 30 MG Ondansetron HCl 8 mg ONCE ONCE IVP 07/22/20 23:15 07/22/20 23:16 DC 07/22/20 23:17 8 MG Pantoprazole 40 mg ONCE ONCE IV 07/22/20 23:15 07/22/20 23:16 DC 07/22/20 23:16 40 MG Sodium Chloride 500 ml @ 0 mls/hr Q0M ONCE IV 07/22/20 23:00 07/22/20 23:01 DC 07/22/20 23:12 500 MLS/HR Vital Signs/I&O Capillary Refill : Progress Note #1: Time: 23:04 Progress Note Bedside bladder scan revealed 21 mL. We are going to give her some IV fluids and do a straight cath and get a CT of her abdomen pelvis as well as some labs. Her heart rate is up around 105 110. Toradol for pain. Progress Note #2: Time: 23:21 Progress Note After the patient's pain is better she dozed off and her oxygen sats drifted down to 90% so we put her on 2 L of oxygen. Suspect sleep apnea. Tachycardia and white count of 19,000 suspect pyelonephritis so we will give her some Rocephin, 2500 cc of fluid which is between 20 and 30 mL/kg and obtain a septic work-up. Diagnostic Imaging Diagonstic Imaging: CT (Without IV contrast kidney stone study) Plain Films/CT/US/NM/MRI: abdomen, pelvis Reviewed: Reviewed by Me Departure Communication (Admissions) Time/Spoke to Admitting Phy: 00:00 Discussed the case with Dr. Bustamante and she agrees to admit the patient to the floor on IV antibiotics and fluids. Impression Primary Impression: Pyelonephritis Additional Impression: Sepsis Qualified Codes: A41.9 - Sepsis, unspecified organism Disposition: HOME, SELF-CARE Condition: Stable Admissions Decision to Admit Reason: Admit from ER (General) Decision to Admit/Date: Jul 22, 2020 Time/Decision to Admit Time: 23:30 Departure-Patient Inst. Referrals: [facility]/ (PCP) Primary Care Physician ABIGAIL LUNA (Family) Primary Care Physician KEIRY PATEL Jul 22, 2020 23:05
[2020-07-22] MEDS ORDERED: ONDANSETRON 4 MG/2 ML (SDV) Z0FRAN ONE (23:08)
[2020-07-22] MEDS ORDERED: PANTOPRAZOLE 40 MG (PROTONIX) VIAL ONE (23:08)
[2020-07-22 23:13] LABS: ALBUMIN 3.5 GM/DL (3.2-4.5); CHLORIDE 104 MMOL/L (98-107); POTASSIUM 3.5 MMOL/L (3.6-5.0); SODIUM 144 MMOL/L (135-145)
[2020-07-22 23:15] LABS: GLUCOSE 167 MG/DL (70-105); TOTAL PROTEIN 8.6 GM/DL (6.4-8.2)
[2020-07-22] MEDS ORDERED: ONDANSETRON 4 MG/2 ML (SDV) Z0FRAN IVP ONE (23:15)
[2020-07-22] MEDS ORDERED: PANTOPRAZOLE 40 MG (PROTONIX) VIAL IV ONE (23:15)
[2020-07-22 23:16] LABS: CARBON DIOXIDE 27 MMOL/L (21-32)
[2020-07-22 23:17] LABS: BILIRUBIN,TOTAL 0.6 MG/DL (0.1-1.0)
[2020-07-22 23:18] LABS: ALKALINE PHOSPHATASE 98 U/L (40-136)
[2020-07-22 23:19] LABS: CREATININE SERUM 0.86 MG/DL (0.60-1.30); GFR ESTIMATED > 60
[2020-07-22 23:20] LABS: BUN/CREATININE RATIO 8
[2020-07-22 23:22] LABS: ALANINE AMINOTRANSFERASE 13 U/L (0-55)
[2020-07-22] MEDS ORDERED: cefTRIAXone FOR IV USE 1,000 MG in WATER (STERILE) FOR INJECTION 10 ML IV ONE (23:30)
[2020-07-22] MEDS ORDERED: LACTATED RINGERS 1,000 ML IV ONE ×2 (23:30)
[2020-07-22 23:40] LABS: INR 1.4 (0.8-1.4); PROTHROMBIN TIME PATIENT 17.1 SEC (12.2-14.7)
[2020-07-22 23:42] LABS: CLARITY,URINE CLOUDY; COLOR,URINE YELLOW; GLUCOSE, URINE (UA) NEGATIVE (NEGATIVE); KETONES,URINE NEGATIVE (NEGATIVE); PH,URINE 7.5 (5-9); PROTEIN,URINE NEGATIVE (NEGATIVE)
[2020-07-22 23:43] LABS: BACTERIA,URINE LARGE /HPF; BILIRUBIN,URINE NEGATIVE (NEGATIVE); LEUKOCYTE ESTERASE ,URINE 3+ (NEGATIVE); NITRITE,URINE POSITIVE (NEGATIVE); RBC,URINE 50-100 /HPF; WBC,URINE TNTC /HPF
[2020-07-22 23:57] LABS: LYMPHOCYTES % (MANUAL) 11 %; MONOCYTES % (MANUAL) 3 %; NEUTROPHILS % (MANUAL) 86 %; RBC MORPH NORMAL
[2020-07-23] MEDS ORDERED: IBUPROFEN 600 MG (MOTRIN) TAB PO PRN (02:15)
[2020-07-23] MEDS ORDERED: HYDROcodone/APAP 5 MG/325 MG (LORTAB) TAB PO PRN (02:15)
[2020-07-23] MEDS ORDERED: ACETAMINOPHEN 325 MG TABLET PO PRN (02:15)
[2020-07-23] MEDS ORDERED: ONDANSETRON 4 MG/2 ML (SDV) Z0FRAN IVP PRN (02:15)
[2020-07-23] MEDS ORDERED: LACTATED RINGERS 1,000 ML IV ONE (03:05)
--- NOTE | 2020-07-23 06:18 | Diagnostic Imaging Report ---
PROCEDURE: CT urinary tract, rule out kidney stone. TECHNIQUE: Multiple contiguous axial images were obtained through the abdomen and pelvis without the use of intravenous contrast. Auto Exposure Controls were utilized during the CT exam to meet ALARA standards for radiation dose reduction. INDICATION: Flank pain. Concern for renal calculus. COMPARISON: Multiple priors, most recent performed on 07/09/2020. FINDINGS: Absence of intravenous contrast decreases sensitivity for detection of lymphadenopathy, focal lesions and vascular pathology. There is mild subsegmental dependent atelectasis in both lower lobes. Lung bases are otherwise clear. Heart is normal in size. The liver, spleen, pancreas and adrenal glands are unremarkable. Layering tiny stones and/or sludge are demonstrated in the gallbladder. No pericholecystic fluid or gallbladder wall thickening. There is no biliary or pancreatic ductal dilatation. There is persistent mild hydroureteronephrosis on the right, with mild perinephric and periureteral stranding related to this. No ureteral calculus is identified. There are unchanged nonobstructing stones in the lower pole collecting system of the right kidney, with the larger measuring 7 mm and the smaller measuring 5 mm. There is no renal calculus or hydronephrosis on the left. There is a small hiatal hernia. Small bowel and colon are normal in course and caliber, without evidence of obstruction. There is diverticulosis involving the descending and sigmoid colon. There is short segment focal wall thickening and pericolonic inflammatory change involving the mid sigmoid colon. No other areas of inflammatory change involving the bowel. There is no pneumoperitoneum, abdominal free fluid or loculated collection. The bladder is contracted and not well evaluated. The uterus is surgically absent. There is no suspicious adnexal mass or pelvic free fluid. The aorta is nonaneurysmal. There is diastases of the rectus abdominis musculature. Multilevel degenerative changes involve the spine. No acute osseous abnormality is identified. IMPRESSION: There is improved but persistent mild right hydroureteronephrosis and associated inflammatory change. No ureteral or bladder calculus is demonstrated and findings may be related to previously passed stone or an infectious process involving the bladder or right kidney. No significant change in nonobstructing stones in the right collecting system. Short segment thickening and pericolonic inflammatory change in the mid sigmoid colon is felt to represent acute diverticulitis. No evidence of microperforation or abscess formation. Cholelithiasis, without evidence of acute cholecystitis. Findings are in agreement with initial teleradiology report. Dictated by: Dictated on workstation # [id number]
[2020-07-23] MEDS ORDERED: LEVOTHYROXINE 50 MCG (LEVOTHROID) TAB ONE (06:20)
[2020-07-23] MEDS: LEVOTHYROXINE 50 MCG (LEVOTHROID) TAB PO SCH ×2 (06:30→06:44)
[2020-07-23] MEDS: LACTATED RINGERS 1,000 ML IV SCH ×4 (06:43→22:28)
[2020-07-23] MEDS: SERTRALINE 50 MG (ZOLOFT) TABLET PO SCH (08:08)
[2020-07-23] MEDS: GABAPENTIN 300 MG (NEURONTIN) CAP PO SCH ×2 (08:09→20:09)
[2020-07-23] MEDS: ASPIRIN E.C. 81 MG (ECOTRIN) TAB PO SCH (08:09)
--- NOTE | 2020-07-23 18:17 | History & Physical ---
HPI History of Present Illness: 65 yo F residing in [facility] that presented with uncontrolled flank pain. Patient had recent admission for obstructing kidney stone. Patient states that she started having worsening pain in the last 48hrs. Denies any blood in urine or stool. + Fevers and states that she is having some chills. Source: patient, RN/MD Exam Limitations: no limitations Date seen by provider: Jul 23, 2020 Time Seen by Provider: 09:25 Attending Physician Jana Lora MD [facility] [place] Consult Date of Admission Jul 23, 2020 at 00:20 Home Medications Home Medications Reviewed patient Home Medication Reconciliation performed by pharmacy medication reconciliations fuel retrofitting technician and/or nursing. Patients Allergies have been reviewed. Allergies Coded Allergies: No Known Drug Allergies (Unverified , 12/04/11) FAX-Fladeu-Nxvubf Hx Patient Social History Smoking Status: Never a Smoker Former smoker/When Quit: Apr 13, 1976 Recent Hopitalizations: No Alcohol Use?: No Have you traveled recently?: No Immunizations Up To Date Tetanus Booster (TDap): Unknown Date of Influenza Vaccine: Feb 12, 2016 Past Medical History PMHx: CVA HTN Hypothyroidism Family Medical History Significant Family History: No Pertinent Family Hx Family History: FH: lung cancer 19 FATHER 19 MOTHER Stroke (cerebrovascular) 19 MOTHER Review of Systems ([facility]C) Constitutional: chills, fever; No malaise, No weakness EENTM: no symptoms reported; No hearing loss, No mouth pain, No nose congestion, No nose pain Respiratory: dyspnea on exertion, short of breath Cardiovascular: no symptoms reported; No chest pain, No edema Gastrointestinal: abdominal pain; No constipation, No diarrhea; loss of appetite, nausea; No vomiting Genitourinary: frequency; No hematuria; incontinence Musculoskeletal: back pain; No joint pain, No muscle pain Skin: no symptoms reported; No lesions, No rash Psychiatric/Neurological: Weakness Reviewed Test Results Reviewed Test Results Lab Laboratory Tests Test 07/22/20 23:00 07/22/20 23:13 Range/Units White Blood Count 19.2 H 4.3-11.0 10^3/uL Red Blood Count 4.32 3.80-5.11 10^6/uL Hemoglobin 11.9 11.5-16.0 g/dL Hematocrit 37 35-52 % Mean Corpuscular Volume 86 80-99 fL Mean Corpuscular Hemoglobin 28 25-34 pg Mean Corpuscular Hemoglobin Concent 32 32-36 g/dL Red Cell Distribution Width 15.6 H 10.0-14.5 % Platelet Count 431 H 130-400 10^3/uL Mean Platelet Volume 10.6 9.0-12.2 fL Immature Granulocyte % (Auto) 0 % Neutrophils (%) (Auto) 82 H 42-75 % Lymphocytes (%) (Auto) 10 L 12-44 % Monocytes (%) (Auto) 8 0-12 % Eosinophils (%) (Auto) 0 0-10 % Basophils (%) (Auto) 0 0-10 % Neutrophils # (Auto) 15.7 H 1.8-7.8 10^3/uL Lymphocytes # (Auto) 1.9 1.0-4.0 10^3/uL Monocytes # (Auto) 1.5 H 0.0-1.0 10^3/uL Eosinophils # (Auto) 0.0 0.0-0.3 10^3/uL Basophils # (Auto) 0.1 0.0-0.1 10^3/uL Immature Granulocyte # (Auto) 0.1 0.0-0.1 10^3/uL Neutrophils % (Manual) 86 % Lymphocytes % (Manual) 11 % Monocytes % (Manual) 3 % Blood Morphology Comment NORMAL Prothrombin Time 17.1 H 12.2-14.7 SEC INR Comment 1.4 0.8-1.4 Activated Partial Thromboplast Time 30 24-35 SEC Sodium Level 144 135-145 MMOL/L Potassium Level 3.5 L 3.6-5.0 MMOL/L Chloride Level 104 98-107 MMOL/L Carbon Dioxide Level 27 21-32 MMOL/L Anion Gap 13 5-14 MMOL/L Blood Urea Nitrogen 7 7-18 MG/DL Creatinine 0.86 0.60-1.30 MG/DL Estimat Glomerular Filtration Rate > 60 BUN/Creatinine Ratio 8 Glucose Level 167 H 70-105 MG/DL Calcium Level 9.0 8.5-10.1 MG/DL Corrected Calcium 9.4 8.5-10.1 MG/DL Total Bilirubin 0.6 0.1-1.0 MG/DL Aspartate Amino Transf (AST/SGOT) 14 5-34 U/L Alanine Aminotransferase (ALT/SGPT) 13 0-55 U/L Alkaline Phosphatase 98 40-136 U/L Total Protein 8.6 H 6.4-8.2 GM/DL Albumin 3.5 3.2-4.5 GM/DL Urine Color YELLOW Urine Clarity CLOUDY H Urine pH 7.5 5-9 Urine Specific [place] 1.010 L 1.016-1.022 Urine Protein NEGATIVE NEGATIVE Urine Glucose (UA) NEGATIVE NEGATIVE Urine Ketones NEGATIVE NEGATIVE Urine Nitrite POSITIVE H NEGATIVE Urine Bilirubin NEGATIVE NEGATIVE Urine Urobilinogen NORMAL < = 1.0 MG/DL Urine Leukocyte Esterase 3+ H NEGATIVE Urine RBC (Auto) 3+ H NEGATIVE Urine RBC 50-100 H /HPF Urine WBC TNTC H /HPF Urine Squamous Epithelial Cells 2-5 /HPF Urine Crystals NONE /LPF Urine Bacteria LARGE H /HPF Urine Casts NONE /LPF Urine Mucus NEGATIVE /LPF Urine Culture Indicated CULTURE PENDING Physical Exam-(CHC) Physical Exam Vital Signs VS - Last 72 Hours, by Label 07/22/20 07/22/20 07/23/20 07/23/20 22:45 23:19 01:34 02:49 Temp 37.0 Pulse 104 60 Resp 20 16 B/P (MAP) 141/68 (92) 159/91 Pulse Ox 96 96 95 95 O2 Delivery Room Air Nasal Cannula Nasal Cannula Room Air O2 Flow Rate 2.00 2.00 07/23/20 07/23/20 07/23/20 07/23/20 03:01 03:05 08:00 08:00 Temp 36.4 36.6 Pulse 77 86 Resp 16 20 B/P (MAP) 132/59 (83) 120/74 (89) Pulse Ox 95 95 93 O2 Delivery Room Air Room Air Room Air Room Air 07/23/20 07/23/20 12:00 16:23 Temp 36.7 36.5 Pulse 75 88 Resp 18 18 B/P (MAP) 148/76 (100) 134/72 (92) Pulse Ox 97 94 O2 Delivery Room Air Room Air Capillary Refill : Less Than 3 Seconds General Appearance: no apparent distress HEENT: PERRL/EOMI Neck: non-tender, full range of motion, supple Respiratory: chest non-tender, lungs clear, normal breath sounds, no respiratory distress, no accessory muscle use Cardiovascular: normal peripheral pulses, regular rate, rhythm, no edema, no murmur Gastrointestinal: normal bowel sounds, soft, tenderness (LLQ ttp ) Back: CVA tenderness (L) Extremities: normal range of motion, no pedal edema, no calf tenderness, normal capillary refill Neurologic/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: 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, alert, normal mood/affect, oriented x 3 Skin: normal color, warm/dry Lymphatic: no adenopathy Assessment/Plan Assessment/Plan Admission Status: Inpatient Order (span 2 midnights) Reason for Inpatient Admission: Patient needing IV antibiotics and high risk of developing sepsis (1) Pyelonephritis Status: Resolved Assessment & Plan: - Culture + Ecoli, continue Rocephin (2) E-coli UTI Status: Acute (3) Nephrolithiasis Status: Acute (4) Flank pain Status: Acute Assessment & Plan: - PO pain meds, pain improved this AM (5) Hypertension Status: Chronic Qualifiers: Qualified Codes: I10 - Essential (primary) hypertension (6) Hemiparesis affecting left side as late effect of stroke Status: Chronic (7) DVT prophylaxis Status: Acute Assessment & Plan: - JANA Betancourt MD Jul 23, 2020 18:17
[2020-07-23] MEDS ORDERED: cefTRIAXone FOR IV USE 1,000 MG in WATER (STERILE) FOR INJECTION 10 ML IV SCH (21:00)
[2020-07-24] MEDS: LACTATED RINGERS 1,000 ML IV SCH ×2 (04:26→13:06)
[2020-07-24] MEDS: LEVOTHYROXINE 50 MCG (LEVOTHROID) TAB PO SCH (05:53)
[2020-07-24 06:01] LABS: BASOPHILS # (AUTO) 0.1 10^3/uL (0.0-0.1); BASOPHILS % (AUTO) 1 % (0-10); EOSINOPHILS # (AUTO) 0.2 10^3/uL (0.0-0.3); EOSINOPHILS % (AUTO) 2 % (0-10); HEMATOCRIT 30 % (35-52); LYMPHOCYTES # (AUTO) 2.1 10^3/uL (1.0-4.0); LYMPHOCYTES % (AUTO) 25 % (12-44); MEAN CORPUSCULAR HEMOGLOBIN 28 pg (25-34); MEAN CORPUSCULAR HGB CONC 33 g/dL (32-36); MEAN CORPUSCULAR VOLUME 84 fL (80-99); MEAN PLATELET VOLUME 10.5 fL (9.0-12.2); MONOCYTES # (AUTO) 0.9 10^3/uL (0.0-1.0); MONOCYTES % (AUTO) 11 % (0-12); NEUTROPHILS # (AUTO) 5.1 10^3/uL (1.8-7.8); NEUTROPHILS % (AUTO) 61 % (42-75); PLATELET COUNT 256 10^3/uL (130-400); WHITE BLOOD COUNT 8.4 10^3/uL (4.3-11.0)
[2020-07-24 06:30] LABS: ALBUMIN 2.7 GM/DL (3.2-4.5); CHLORIDE 108 MMOL/L (98-107); POTASSIUM 3.3 MMOL/L (3.6-5.0); SODIUM 144 MMOL/L (135-145)
[2020-07-24 06:32] LABS: GLUCOSE 114 MG/DL (70-105); TOTAL PROTEIN 6.5 GM/DL (6.4-8.2)
[2020-07-24 06:33] LABS: CARBON DIOXIDE 24 MMOL/L (21-32)
[2020-07-24 06:34] LABS: BILIRUBIN,TOTAL 0.4 MG/DL (0.1-1.0)
[2020-07-24 06:36] LABS: ALKALINE PHOSPHATASE 74 U/L (40-136); CREATININE SERUM 0.69 MG/DL (0.60-1.30); GFR ESTIMATED > 60
[2020-07-24 06:37] LABS: BUN/CREATININE RATIO 7
[2020-07-24 06:39] LABS: ALANINE AMINOTRANSFERASE 9 U/L (0-55)
[2020-07-24] MEDS: GABAPENTIN 300 MG (NEURONTIN) CAP PO SCH (09:02)
[2020-07-24] MEDS: SERTRALINE 50 MG (ZOLOFT) TABLET PO SCH (09:03)
[2020-07-24] MEDS: ASPIRIN E.C. 81 MG (ECOTRIN) TAB PO SCH (09:03)
[2020-07-24] MEDS ORDERED: KCL 20 MEQ TAB (K-DUR) PO NR (09:15)
--- NOTE | 2020-07-24 11:57 | Discharge Summary ---
Diagnosis/Chief Complaint Date of Admission Jul 23, 2020 at 00:20 Date of Discharge 07/24/20 Admission Diagnosis Admission Diagnosis See Problem list Discharge Diagnosis See below Problems/Diagnosis: (1) Pyelonephritis Assessment & Plan: - Culture + Ecoli, continue Rocephin 08/23: Transitioned to PO antibiotics, labs resolved Status: Resolved Resolution Date/Time: 07/11/20 @ 10:46 (2) E-coli UTI Status: Acute (3) Nephrolithiasis Assessment & Plan: 07/24: Patient to keep appt with Dr Rowland tomorrow for non obstructing stones Status: Acute (4) Flank pain Assessment & Plan: - PO pain meds, pain improved this AM Status: Acute (5) Hypertension Qualifiers: Qualified Codes: I10 - Essential (primary) hypertension Status: Chronic (6) Hemiparesis affecting left side as late effect of stroke Status: Chronic (7) DVT prophylaxis Assessment & Plan: - Lovenox Status: Acute Chief Complaint/HPI Chief Complaint/HPI 65 yo F residing in [facility] that presented with uncontrolled flank pain. Patient had recent admission for obstructing kidney stone. Patient states that she started having worsening pain in the last 48hrs. Denies any blood in urine or stool. + Fevers and states that she is having some chills. Discharge Summary-Simple/Stand Consultations Discharge Physical Examination Allergies: Coded Allergies: No Known Drug Allergies (Unverified , 12/04/11) Vitals & I&Os Vital Sign - Last 12Hours Date Time Temp Pulse Resp B/P (MAP) Pulse Ox O2 Delivery O2 Flow Rate FiO2 07/24/20 11:42 36.1 75 16 198/81 (120) 96 Room Air 07/23/20 01:34 2.00 Intake and Output 07/24/20 00:00 Intake Total 510 ml Balance 510 ml General Appearance: Alert, Oriented X3, Cooperative, No Acute Distress HEENT: Mucous Memb Moist/[place] Respiratory: Clear to Auscultation, Normal Air Movement Cardiovascular: Regular Rate, No Murmurs Abdominal: Normal Bowel Sounds, Soft, No Tenderness, No Masses Extremities: No Edema, No Tenderness/Swelling Skin: No Rashes, No Breakdown Neuro: Normal Speech, Sensation Intact, Cranial Nerves 3-12 NL Hospital Course See final discharge diagnosis. Discussion & Recommendations 65 yo wheelchair bound adult female that presented with pyelonephritis. Patient has several non obstructive kidney stones and has been admitted several times for UTI. Patient growing Ecoli. Started on Rocephin and transition to cefdinir at discharge. Patient encouraged to keep f.u appt with Dr Rowland tomorrow for multiple kidney stones. She was tolerating PO diet and oral hydration. Will have close f.u with Maria C at facility. Discharge Condition at discharge Stable Instructions to patient/family Please see electronic discharge instructions given to patient. Discharge Medications Reviewed and agree with Discharge Medication list on patient's Discharge Instruction sheet Copy Copies To 1: CHC: JANA Bar MD Jul 24, 2020 11:57
[2020-07-24] MEDS ORDERED: CEFD300C3 PO (12:04)
--- NOTE | 2020-07-24 12:09 | Discharge Summary ---
Discharge [facility] Reconcile Patient Problems Problems Reviewed?: Yes Discharge Medications New, Converted or Re-Newed RX: Transmitted to Pharmacy New Medications: Cefdinir (Cefdinir) 300 Mg Capsule 300 MG PO BID, #10 CAP Continued Medications: Acetaminophen (Tylenol) 325 Mg Capsule 650 MG PO Q4H PRN for PAIN-MODERATE (5-7), CAP Aspirin (Aspirin EC) 81 Mg Tablet.dr 81 MG PO DAILY, TAB Cholecalciferol (Vitamin D3) (Vitamin D3) 25 Mcg Capsule 50 MCG PO DAILY, CAP Docusate Sodium (Docusate Sodium) 100 Mg Tablet 100 MG PO DAILY PRN for CONSTIPATION-1ST LINE, TAB Docusate Sodium (Docusate Sodium) 100 Mg Tablet 100 MG PO BID, TAB Gabapentin (Neurontin) 300 Mg Capsule 300 MG PO BID, CAP Ginkgo Biloba (Ginkgo) 60 Mg Tablet 60 MG PO BID, TAB Levothyroxine Sodium (Levothyroxine) 50 Mcg Capsule 50 MCG PO DAILY, CAP Lisinopril (Lisinopril) 20 Mg Tablet 20 MG PO DAILY, TAB HOLD IF PULSE <50BPM OR BP <100/50 Loratadine (Claritin) 10 Mg Tablet 10 MG PO DAILY, TAB Mag Hydrox/Al Hydrox/Simeth (Mylanta Suspension) 30 Ml Oral.susp 30 ML PO Q4H PRN for HEARTBURN, ML Menthol (Biofreeze) 118 Ml Gel..ml. 1 APPLIC TP HS, TUBE APPLY TO LEFT LEG/FOOT Menthol (Biofreeze) 118 Ml Gel..ml. 1 APPLIC TP EVERY 2 HOURS PRN for PAIN-BREAKTHROUGH, TUBE Menthol ([place]) 7.5 Mg Lozenge 7.5 MG MM EVERY 2 HOURS PRN for SORE THROAT, LOZENGE Metoprolol Succinate (Metoprolol Succinate) 25 Mg Tab.er.24h 25 MG PO DAILY, TAB HOLD IF PULSE <50BPM OR BP<100/500 Multivitamin with Minerals (Multivitamins with Minerals) 1 Each Tablet 1 EACH PO DAILY, TAB Omeprazole (Omeprazole) 20 Mg Capsule.dr 20 MG PO HS, CAP Polyethylene Glycol 3350 (Miralax) 17 Gm Powd.pack 17 GM PO DAILY PRN for CONSTIPATION-2ND LINE, EACH Sertraline HCl (Zoloft) 50 Mg Tablet 50 MG PO DAILY, TAB Trazodone HCl (Trazodone HCl) 50 Mg Tablet 50 MG PO HS, TAB Vitamin E Acetate (Vitamin E) 400 Unit Capsule 400 UNIT PO DAILY, CAP Patient Instructions Goal/Follow Up Appt: Maria C [place] you [place] It is important that patient keeps hafsa with Dr Rowland tomorrow do to non obstructing kidney stones Activity & Diet Discharge Diet: ADA Diet, Cardiac Diet Activity as Tolerated: Yes JANA DELAROSA MD Jul 24, 2020 12:09
[2020-07-24 13:00] VITALS: BP 172/83
--- NOTE | 2020-07-25 13:44 | Physician Query Clarification ---
PQ-Uncertain Diagnosis Admission/Discharge Admission Date: Jul 23, 2020 at 00:20 Discharge Date: Jul 24, 2020 at 13:00 Dr. Lora, The medical record reflects the following clinical scenario: History/Risk Factors: pyelonephritis, allison kidney stones Clinical Findings: chills, T37.0, P 104, R 20, WBC 19.4, urine +Ecoli Treatment: IV Ceftriaxone Question: Is Sepsis a clinically valid diagnosis? Sepsis was documented in the ED record with no further documentation in the medical record. Please document a response in Progress Note or Discharge Summary. 1. Yes, clinically valid, condition resolved. 2. No, condition ruled out. 3. Other, with explanation of clinical findings. 4. Undetermined, no explanation for clinical findings. Please remember a lack of response to the above will prompt a phone page by CDI/Coding staff. In responding to this query, please exercise your independent professional judgment. The purpose of this communication is to more accurately reflect the complexity of your patients condition. The fact that a question is asked does not imply that any particular answer is desired or expected. Thank you for your timely response to this clarification. Requestors name: [email or web address] THIS PHYSICIAN QUERY FORM IS A PERMANENT PART OF THE MEDICAL RECORD JILLIAN QUINTANILLA Jul 25, 2020 13:44
--- NOTE | 2020-07-25 13:46 | Physician Query Clarification ---
PQ-Further Specificity Admission/Discharge Admission Date: Jul 23, 2020 at 00:20 Discharge Date: Jul 24, 2020 at 13:00 Dr. Lora, The medical record reflects the following clinical scenario: History/Risk Factors: pyelonephritis, allison kidney stones Clinical Findings: chills, T37.0, P 104, R 20, WBC 19.4, urine +Ecoli Treatment: IV Ceftriaxone Question: Can you further specify the acuity of the pyelonephritis per the clinical indicators above? Please document a response in the Progress Notes or Discharge Summary. 1. acute pyelonephritis 2. chronic pyelonephritis 3. Other, with explanation of the clinical findings. 4. Clinically undetermined, no explanation for the clinical findings. Please remember a lack of response to the above will prompt a phone page by CDI/Coding staff. In responding to this query, please exercise your independent professional judgment. The purpose of this communication is to more accurately reflect the complexity of your patients condition. The fact that a question is asked does not imply that any particular answer is desired or expected. Thank you for your timely response to this clarification. Requestors name: [email or web address] THIS PHYSICIAN QUERY FORM IS A PERMANENT PART OF THE MEDICAL RECORD JILLIAN QUINTANILLA Jul 25, 2020 13:46
== END 2020-07-24 13:00 | DRG 690 ==
LOC: EDUNIT# 22:00 → ER 22:02 → 4TH 07-23 00:20
PROVIDERS: ADMIT Internal Medicine; ATTEND Family Medicine
DX: N12 Tubulo-interstitial nephritis, not specified as acute or chronic (principal); I69.354 Hemiplegia and hemiparesis following cerebral infarction affecting left non-dominant side; N20.0 Calculus of kidney; B96.20 Unspecified Escherichia coli [E. coli] as the cause of diseases classified elsewhere; Z87.442 Personal history of urinary calculi; R32 Unspecified urinary incontinence; I10 Essential (primary) hypertension; J45.909 Unspecified asthma, uncomplicated; E03.9 Hypothyroidism, unspecified; E11.9 Type 2 diabetes mellitus without complications; Z79.2 Long term (current) use of antibiotics; Z79.82 Long term (current) use of aspirin
CPT/HCPCS: 36415; 51701; 74176; 80053; 81000; 85007; 85025; 85027; 85610; 85730; 87040; 87077; 87088; 87186; 96374; 96375

== ENCOUNTER 2021-03-25 23:28 | Inpatient (IN) | payer MEDICARE, MEDICAID ==
[~2021-03-25] VITALS: Ht 165 cm; Wt 116.8 kg
--- NOTE | 2021-03-25 23:59 | ED Back Pain ---
General Stated Complaint: RT SIDE KIDNEY PAIN Source of Information: Patient (PT IS AN EXTREMELY POOR HISTORIAN AND DOES NOT KNOW ANY OF HER MEDICAL HISTORY OR ANY MEDICATIONS, AND NO STAFF ARRIVE WITH PATIENT) Exam Limitations: Other (MORBID OBESITY, UNABLE TO GET OUT OF WHEELCHAIR, OR ASSIST WITH ANY MOVEMENT OF ANY KIND) History of Present Illness Date Seen by Provider: Mar 25, 2021 Time Seen by Provider: 23:45 Initial Comments PT ARRIVES VIA WHEELCHAIR VAN FROM [facility], IN WHEELCHAIR. NO STAFF ARRIVE WITH PATIENT--DROPPED HER OFF AND LEFT PT C/O RIGHT FLANK PAIN SINCE SOMETIME THIS EVENING C/O URGE TO URINATE, BUT THEN IS UNABLE TO VOID, AND HAS SOME PAIN ON URINATION STATES SHE HAS HAD KIDNEY STONES IN THE PAST, AND THINKS THAT IS WHAT SHE IS HAVING NOW UNABLE TO OBTAIN ANY OTHER HISTORY FROM PT Other Comments PCP: DR. ZHANG Allergies and Home Medications Allergies Coded Allergies: No Known Drug Allergies (Unverified , 12/04/11) Patient Home Medication List Home Medication List Reviewed: Yes Acetaminophen (Tylenol) 325 Mg Capsule, 650 MG PO Q4H PRN for PAIN-MODERATE (5- 7), (Reported) Entered as Reported by: TERESO SWANN on 07/10/20836 Aspirin (Aspirin EC) 81 Mg Tablet., 81 MG PO DAILY, (Reported) Entered as Reported by: TERESO SWANN on 07/10/20836 Cefdinir (Cefdinir) 300 Mg Capsule, 300 MG PO BID Prescribed by: JANA DELAROSA on 07/24/20 1204 Cholecalciferol (Vitamin D3) (Vitamin D3) 25 Mcg Capsule, 50 MCG PO DAILY, (Reported) Entered as Reported by: TERESO SWANN on 07/10/20836 Docusate Sodium (Docusate Sodium) 100 Mg Tablet, 100 MG PO DAILY PRN for CONSTIPATION-1ST LINE, (Reported) Entered as Reported by: TERESO SWANN on 07/10/20836 Docusate Sodium (Docusate Sodium) 100 Mg Tablet, 100 MG PO BID, (Reported) Entered as Reported by: TERESO SWANN on 07/10/20836 Gabapentin (Neurontin) 300 Mg Capsule, 300 MG PO BID, (Reported) Entered as Reported by: TERESO SWANN on 07/10/20836 Ginkgo Biloba (Ginkgo) 60 Mg Tablet, 60 MG PO BID, (Reported) Entered as Reported by: TERESO SWANN on 07/10/20836 Levothyroxine Sodium (Levothyroxine) 50 Mcg Capsule, 50 MCG PO DAILY, (Reported) Entered as Reported by: TERESO SWANN on 07/10/20836 Lisinopril (Lisinopril) 20 Mg Tablet, 20 MG PO DAILY, (Reported) Entered as Reported by: TERESO SWANN on 07/10/20836 Loratadine (Claritin) 10 Mg Tablet, 10 MG PO DAILY, (Reported) Entered as Reported by: TERESO SWANN on 07/10/20836 Mag Hydrox/Al Hydrox/Simeth (Mylanta Suspension) 30 Ml Oral.susp, 30 ML PO Q4H PRN for HEARTBURN, (Reported) Entered as Reported by: TERESO SWANN on 07/10/20836 Menthol (Biofreeze) 118 Ml Gel..ml., 1 APPLIC TP HS, (Reported) Entered as Reported by: TERESO SWANN on 07/10/20836 Menthol (Biofreeze) 118 Ml Gel..ml., 1 APPLIC TP EVERY 2 HOURS PRN for PAIN- BREAKTHROUGH, (Reported) Entered as Reported by: TERESO SWANN on 07/10/20836 Menthol ([place]) 7.5 Mg Lozenge, 7.5 MG MM EVERY 2 HOURS PRN for SORE THROAT, (Reported) Entered as Reported by: TERESO SWANN on 07/10/20836 Metoprolol Succinate (Metoprolol Succinate) 25 Mg Tab.er.24h, 25 MG PO DAILY, (Reported) Entered as Reported by: TERESO SWANN on 07/10/20836 Multivitamin with Minerals (Multivitamins with Minerals) 1 Each Tablet, 1 EACH PO DAILY, (Reported) Entered as Reported by: TERESO SWANN on 07/10/20836 Omeprazole (Omeprazole) 20 Mg Capsule.dr, 20 MG PO HS, (Reported) Entered as Reported by: TERESO SWANN on 07/10/20836 Polyethylene Glycol 3350 (Miralax) 17 Gm Powd.pack, 17 GM PO DAILY PRN for CONSTIPATION-2ND LINE, (Reported) Entered as Reported by: TERESO SWANN on 07/10/20836 Sertraline HCl (Zoloft) 50 Mg Tablet, 50 MG PO DAILY, (Reported) Entered as Reported by: TERESO SWANN on 07/10/20836 Trazodone HCl (Trazodone HCl) 50 Mg Tablet, 50 MG PO HS, (Reported) Entered as Reported by: TERESO SWANN on 07/10/20836 Vitamin E Acetate (Vitamin E) 400 Unit Capsule, 400 UNIT PO DAILY, (Reported) Entered as Reported by: TERESO SWANN on 07/10/20836 Review of Systems Constitutional: see HPI Gastrointestinal: see HPI Genitourinary: see HPI Musculoskeletal: see HPI, back pain Past Tgvybhi-Rlmffc-Cfzukw Hx Immunizations Up To Date Tetanus Booster (TDap): Unknown Seasonal Allergies Seasonal Allergies: Yes Past Medical History Surgeries: Yes (CARDIAC CATH; LOOP RECORDER) Breast, Cardiac, Hysterectomy Respiratory: Yes Asthma Cardiac: Yes (cardiac recorder implanted lt upper chest) Hypertension Neurological: Yes (CVA 07/2014; lt upper/lower flaccid; MEMORY IMPAIRMENT) Headaches /Migraines, Stroke Reproductive Disorders: No Female 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 REQUIRES A LIFT ) Hypothyroidsim, Diabetes, Non-Insulin dep Hearing Impairment: Denies Cancer: No Psychosocial: No Integumentary: No Blood Disorders: No Family Medical History FH: lung cancer 19 FATHER 19 MOTHER Stroke (cerebrovascular) 19 MOTHER No Pertinent Family Hx Physical Exam Vital Signs Vital Signs - First Documented 03/25/21 23:40 Temp 36.3 Pulse 71 Resp 18 B/P (MAP) 139/69 (92) Pulse Ox 98 O2 Delivery Room Air Capillary Refill : Height, Weight, BMI Height: 5'5" Weight: 292lbs. 11.2oz. 132.688360dr; 42.00 BMI Method:Stated General Appearance: No Apparent Distress, Obese (MORBIDLY OBESE, SITTING IN WHEELCHAIR, UNABLE TO MOVE AT ALL WITHOUT FULL ASSIST, REQUIRES A LIFT DEVICE FOR ANY MOVEMENT. ), Other (DOES NOT APPEAR TO BE IN ANY DISCOMFORT OR DISTRESS. WEARING A LARGE HAT. VERY FLAT AFFECT) Cardiovascular: Regular Rate, Rhythm, No Murmur Respiratory: Normal Breath Sounds, No Accessory Muscle Use, No Respiratory Distress Gastrointestinal: Soft, Tenderness (RIGHT FLANK, RIGHT MID AND LOWER ABDOMEN) Back: CVA Tenderness (R) Neurologic/Psychiatric: Alert, Other (VERY POOR MEMORY; FLAT AFFECT; LEFT SIDE FLACCID FROM PRIOR CVA) Skin: Normal Color (PT IS ) Progress/Results/Core Measures Results/Orders Lab Results Laboratory Tests Test 03/25/21 23:55 03/26/21 00:35 Range/Units White Blood Count 12.3 H 4.3-11.0 10^3/uL Red Blood Count 4.83 3.80-5.11 10^6/uL Hemoglobin 13.8 11.5-16.0 g/dL Hematocrit 41 35-52 % Mean Corpuscular Volume 85 80-99 fL Mean Corpuscular Hemoglobin 29 25-34 pg Mean Corpuscular Hemoglobin Concent 34 32-36 g/dL Red Cell Distribution Width 13.4 10.0-14.5 % Platelet Count 317 130-400 10^3/uL Mean Platelet Volume 10.2 9.0-12.2 fL Immature Granulocyte % (Auto) 0 % Neutrophils (%) (Auto) 85 H 42-75 % Lymphocytes (%) (Auto) 10 L 12-44 % Monocytes (%) (Auto) 5 0-12 % Eosinophils (%) (Auto) 0 0-10 % Basophils (%) (Auto) 1 0-10 % Neutrophils # (Auto) 10.4 H 1.8-7.8 10^3/uL Lymphocytes # (Auto) 1.2 1.0-4.0 10^3/uL Monocytes # (Auto) 0.6 0.0-1.0 10^3/uL Eosinophils # (Auto) 0.0 0.0-0.3 10^3/uL Basophils # (Auto) 0.1 0.0-0.1 10^3/uL Immature Granulocyte # (Auto) 0.0 0.0-0.1 10^3/uL Sodium Level 138 135-145 MMOL/L Potassium Level 4.3 3.6-5.0 MMOL/L Chloride Level 102 98-107 MMOL/L Carbon Dioxide Level 23 21-32 MMOL/L Anion Gap 13 5-14 MMOL/L Blood Urea Nitrogen 12 7-18 MG/DL Creatinine 0.94 0.60-1.30 MG/DL Estimat Glomerular Filtration Rate 73 BUN/Creatinine Ratio 13 Glucose Level 158 H 70-105 MG/DL Calcium Level 9.6 8.5-10.1 MG/DL Corrected Calcium 9.7 8.5-10.1 MG/DL Total Bilirubin 0.4 0.1-1.0 MG/DL Aspartate Amino Transf (AST/SGOT) 15 5-34 U/L Alanine Aminotransferase (ALT/SGPT) 14 0-55 U/L Alkaline Phosphatase 115 40-136 U/L Total Protein 9.0 H 6.4-8.2 GM/DL Albumin 3.9 3.2-4.5 GM/DL Urine Color YELLOW Urine Clarity SL CLOUDY Urine pH 6.0 5-9 Urine Specific Meno >=1.030 1.016-1.022 Urine Protein 3+ H NEGATIVE Urine Glucose (UA) NEGATIVE NEGATIVE Urine Ketones NEGATIVE NEGATIVE Urine Nitrite POSITIVE H NEGATIVE Urine Bilirubin NEGATIVE NEGATIVE Urine Urobilinogen 0.2 < = 1.0 MG/DL Urine Leukocyte Esterase NEGATIVE NEGATIVE Urine RBC (Auto) 3+ H NEGATIVE Urine RBC NONE /HPF Urine WBC TNTC H /HPF Urine Squamous Epithelial Cells NONE /HPF Urine Crystals NONE /LPF Urine Bacteria LARGE H /HPF Urine Casts NONE /LPF Urine Mucus NEGATIVE /LPF Urine Culture Indicated YES My Orders Orders - DIANA PUCKETT DO Ed Iv/Invasive Line Start (03/25/21 23:48) Cbc With Automated Diff (03/25/21 23:48) Comprehensive Metabolic Panel (03/25/21 23:48) Ua Culture If Indicated (03/25/21 23:48) Ed Iv/Invasive Line Start (03/25/21 23:48) Lactated Ringers (Lr 1000 Ml Iv Solution (03/26/21 00:00) Catheter(Urinary) Insert & Ass 15 (03/26/21 00:08) Ct Abd/Pelvis Wo(Kidney Stone) (03/26/21 00:01) Abdomen/Kub 1view (03/26/21 00:01) Urine Culture (03/26/21 00:35) Ceftriaxone 1 Gm Pre-Mix (Rocephin 1 Gm (03/26/21 00:59) Ondansetron Injection (Zofran Injectio (03/26/21 01:30) Ketorolac Injection (Toradol Injection) (03/26/21 01:45) Medications Given in ED Current Medications Medications Dose Ordered Sig/Magdi Route Start Time Stop Time Status Last Admin Dose Admin Ketorolac Tromethamine 30 mg ONCE ONCE IVP 03/26/21 01:45 03/26/21 01:46 DC 03/26/21 01:44 30 MG Lactated Ringer's 1,000 ml @ 0 mls/hr Q0M ONCE IV 03/26/21 00:00 03/26/21 00:01 DC 03/26/21 00:15 0 MLS/HR Ondansetron HCl 8 mg ONCE ONCE IVP 03/26/21 01:30 03/26/21 01:31 DC 03/26/21 01:31 8 MG Vital Signs/I&O 03/25/21 23:40 Temp 36.3 Pulse 71 Resp 18 B/P (MAP) 139/69 (92) Pulse Ox 98 O2 Delivery Room Air Progress Progress Note : Progress Note MOVED FROM WHEELCHAIR TO ER COT WITH [id number] ASSISTIVE LIFT EQUIPMENT GAVE ZOFRAN FOR NAUSEA/VOMITING X 1 IN XRAY DEPT WITH IMPROVEMENT ALSO GAVE TORADOL WITH IMPROVEMENT IN PAIN GAVE ROCEPHIN FOR UTI NO DETERIORATOIN IN PT'S CONDITION DURING ER STAY Diagnostic Imaging Comments KUB--NO ACUTE PROCESS, PENDING RADIOLOGIST REVIEW CT ABDOMEN/PELVIS--8 X 13 MM STONE AT RIGHT UPJ, WITH HYDRONEPHROSIS AND PERINEPHRIC STRANDING. ADDITIONAL NON-OBSTRUCTING STONE IN INFERIOR POLIE OF RIGHT KIDNEY AT 6 MM, PERIUMBILICAL HERNIA--PER [facility] VIA FAX AT 0210 Reviewed: Reviewed by Wi Departure Communication (Admissions) 0238--SPOKE WITH DR. POTTER, ACCEPTS PT FOR ADMIT. 0240--SPOKE WITH DR. DAVALOS, UROLOGIST, WILL KEEP NPO, FOR POSSIBLE PROCEDURE LATER TODAY Impression Primary Impression: Calculus of proximal right ureter Additional Impressions: UTI (urinary tract infection) NIDDM Morbid obesity PRIOR CVA WITH LEFT SIDE PARALYSIS HTN (hypertension) Disposition: ADMITTED INPATIENT Condition: Improved Admissions Decision to Admit Reason: Admit from ER (General) Decision to Admit/Date: Mar 26, 2021 Time/Decision to Admit Time: 02:40 Departure-Patient Inst. Decision time for Depature: 02:20 Referrals: [facility] (PCP) Primary Care Physician ABIGAIL LUNA (Family) Primary Care Physician SUSAN DAVALOS MD Patient Instructions: Urinary Tract Infection, Adult ED, Kidney Stone, Adult ED DIANA PUCKETT DO Mar 25, 2021 23:59
[2021-03-26] MEDS ORDERED: LACTATED RINGERS 1,000 ML IV ONE
[2021-03-26 00:02] LABS: BASOPHILS # (AUTO) 0.1 10^3/uL (0.0-0.1); BASOPHILS % (AUTO) 1 % (0-10); EOSINOPHILS % (AUTO) 0 % (0-10); HEMATOCRIT 41 % (35-52); HEMOGLOBIN 13.8 g/dL (11.5-16.0); LYMPHOCYTES # (AUTO) 1.2 10^3/uL (1.0-4.0); LYMPHOCYTES % (AUTO) 10 % (12-44); MEAN CORPUSCULAR HEMOGLOBIN 29 pg (25-34); MEAN CORPUSCULAR HGB CONC 34 g/dL (32-36); MEAN CORPUSCULAR VOLUME 85 fL (80-99); MEAN PLATELET VOLUME 10.2 fL (9.0-12.2); MONOCYTES # (AUTO) 0.6 10^3/uL (0.0-1.0); MONOCYTES % (AUTO) 5 % (0-12); NEUTROPHILS # (AUTO) 10.4 10^3/uL (1.8-7.8); NEUTROPHILS % (AUTO) 85 % (42-75); PLATELET COUNT 317 10^3/uL (130-400); WHITE BLOOD COUNT 12.3 10^3/uL (4.3-11.0)
[2021-03-26 00:09] LABS: ALBUMIN 3.9 GM/DL (3.2-4.5)
[2021-03-26 00:10] LABS: POTASSIUM 4.3 MMOL/L (3.6-5.0)
[2021-03-26 00:11] LABS: CALCIUM 9.6 MG/DL (8.5-10.1)
[2021-03-26 00:14] LABS: BILIRUBIN,TOTAL 0.4 MG/DL (0.1-1.0)
[2021-03-26 00:16] LABS: CREATININE SERUM 0.94 MG/DL (0.60-1.30)
[2021-03-26 00:42] LABS: BILIRUBIN,URINE NEGATIVE (NEGATIVE); CLARITY,URINE SL CLOUDY; COLOR,URINE YELLOW; GLUCOSE, URINE (UA) NEGATIVE (NEGATIVE); KETONES,URINE NEGATIVE (NEGATIVE); LEUKOCYTE ESTERASE ,URINE NEGATIVE (NEGATIVE); NITRITE,URINE POSITIVE (NEGATIVE); PROTEIN,URINE 3+ (NEGATIVE)
[2021-03-26 00:57] LABS: BACTERIA,URINE LARGE /HPF; WBC,URINE TNTC /HPF
[2021-03-26] MEDS ORDERED: cefTRIAXone 1 GM PRE-MIX 50 ML IV STA (00:59)
[2021-03-26] MEDS ORDERED: ONDANSETRON 4 MG/2 ML (SDV) Z0FRAN IVP ONE (01:30)
[2021-03-26] MEDS ORDERED: KETOROLAC 30 MG/ML VIAL IVP ONE (01:45)
[2021-03-26 03:58] VITALS: BP 134/80
[2021-03-26] MEDS ORDERED: D5 1/2 NS W/KCL 20 MEQ/L 1,000 ML IV ONE (04:04)
[2021-03-26] MEDS ORDERED: ONDANSETRON 4 MG/2 ML (SDV) Z0FRAN IV PRN (04:15)
[2021-03-26] MEDS ORDERED: KETOROLAC 30 MG/ML VIAL IVP PRN (04:15)
[2021-03-26] MEDS ORDERED: fentaNYL INJ 100 MCG/2 ML AMP IV PRN (04:15)
[2021-03-26] MEDS: D5 1/2 NS W/KCL 20 MEQ/L 1,000 ML IV SCH ×3 (04:16→20:55)
--- NOTE | 2021-03-26 04:49 | Diagnostic Imaging Report ---
PROCEDURE: CT urinary tract, rule out kidney stone. TECHNIQUE: Multiple contiguous axial images were obtained through the abdomen and pelvis without the use of intravenous contrast. Auto Exposure Controls were utilized during the CT exam to meet ALARA standards for radiation dose reduction. INDICATION: Abdominal pain, flank pain, kidney stones. COMPARISON: 07/22/2020 FINDINGS: The lung bases demonstrate mild atelectasis. The heart is normal in size. There is a small hiatal hernia. The liver demonstrates no focal lesions. The spleen appears normal. The pancreas is normal. The adrenal glands appear normal. Small layering hyperdensities are seen in the gallbladder, may represent small stones. There is moderate right hydronephrosis with an obstructing calculus in the proximal ureter which measures up to 1 cm in width. The more distal right ureter demonstrates mild hydroureter and periureteral fat stranding. There is a nonobstructing calculus in the right kidney measuring 5 mm. No left renal calculi are seen. The appendix is normal. The bowel loops are nondistended without obstruction. There is diverticulosis of the descending and sigmoid colon without diverticulitis. There is minimal free fluid in the pelvis. There is diastasis of the rectus abdominis musculature. There are degenerative changes in the spine. IMPRESSION: 1. Moderate right hydronephrosis with an obstructing 1 cm calculus in the proximal ureter. Additional nonobstructing calculus in the right kidney. 2. Additional wall thickening and periureteral edema about the distal right ureter. This could be due to additional recently passed stone or possibly infection. 3. Cholelithiasis. 4. Small hiatal hernia. No significant changes from the preliminary report. Dictated by: Dictated on workstation # [id number]
[2021-03-26] MEDS: inSUlin ASPART (NovoLOG) 1 UNIT/0.01 ML (CHARGE PER UNIT) SC SCH ×4 (05:15→21:00)
--- NOTE | 2021-03-26 05:47 | Diagnostic Imaging Report ---
HISTORY: Abdominal pain. TECHNIQUE: Frontal view of the abdomen. COMPARISON: 07/10/2020 FINDINGS: Bowel loops are nondistended without obstruction. There is a small to moderate amount of stool throughout the colon. No large collection of free air is seen. There are degenerative changes in the spine and hips. IMPRESSION: Small to moderate amount of stool in the colon. No bowel obstruction or free air seen. Dictated by: Dictated on workstation # [id number]
[2021-03-26 07:12] VITALS: BP 139/68
[2021-03-26] MEDS ORDERED: VITA400C64 PO (09:47)
[2021-03-26] MEDS ORDERED: LEVO50TA6 PO (09:47)
[2021-03-26] MEDS ORDERED: LACT1CAP87 PO (09:47)
--- NOTE | 2021-03-26 11:17 | History & Physical ---
HPI History of Present Illness: 65 yo female came in last night due to pain, nausea and vomiting that were reminiscent of previous kidney stones. She has not had to have procedures for prior kidney stones. Denies fever prior to admission. Pain is currently not too bad. 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 Patients Allergies have been reviewed. 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: [employer] Past Medical History PMHx: CVA with left hemiparesis HTN Hypothyroidism Nephrolithiasis SurgHx: Hysterectomy Family Medical History Significant Family History: No Pertinent Family Hx Family History: FH: lung cancer 19 FATHER 19 MOTHER Stroke (cerebrovascular) 19 MOTHER Review of Systems ([facility]) Constitutional: No fever Respiratory: No cough, No short of breath Cardiovascular: No chest pain Gastrointestinal: No constipation, No diarrhea; nausea, vomiting Genitourinary: No dysuria Skin: No rash Reviewed Test Results Reviewed Test Results Lab Laboratory Tests Test 03/25/21 23:55 03/26/21 00:35 03/26/21 05:03 Range/Units White Blood Count 12.3 H 4.3-11.0 10^3/uL Red Blood Count 4.83 3.80-5.11 10^6/uL Hemoglobin 13.8 11.5-16.0 g/dL Hematocrit 41 35-52 % Mean Corpuscular Volume 85 80-99 fL Mean Corpuscular Hemoglobin 29 25-34 pg Mean Corpuscular Hemoglobin Concent 34 32-36 g/dL Red Cell Distribution Width 13.4 10.0-14.5 % Platelet Count 317 130-400 10^3/uL Mean Platelet Volume 10.2 9.0-12.2 fL Immature Granulocyte % (Auto) 0 % Neutrophils (%) (Auto) 85 H 42-75 % Lymphocytes (%) (Auto) 10 L 12-44 % Monocytes (%) (Auto) 5 0-12 % Eosinophils (%) (Auto) 0 0-10 % Basophils (%) (Auto) 1 0-10 % Neutrophils # (Auto) 10.4 H 1.8-7.8 10^3/uL Lymphocytes # (Auto) 1.2 1.0-4.0 10^3/uL Monocytes # (Auto) 0.6 0.0-1.0 10^3/uL Eosinophils # (Auto) 0.0 0.0-0.3 10^3/uL Basophils # (Auto) 0.1 0.0-0.1 10^3/uL Immature Granulocyte # (Auto) 0.0 0.0-0.1 10^3/uL Sodium Level 138 135-145 MMOL/L Potassium Level 4.3 3.6-5.0 MMOL/L Chloride Level 102 98-107 MMOL/L Carbon Dioxide Level 23 21-32 MMOL/L Anion Gap 13 5-14 MMOL/L Blood Urea Nitrogen 12 7-18 MG/DL Creatinine 0.94 0.60-1.30 MG/DL Estimat Glomerular Filtration Rate 73 BUN/Creatinine Ratio 13 Glucose Level 158 H 70-105 MG/DL Calcium Level 9.6 8.5-10.1 MG/DL Corrected Calcium 9.7 8.5-10.1 MG/DL Total Bilirubin 0.4 0.1-1.0 MG/DL Aspartate Amino Transf (AST/SGOT) 15 5-34 U/L Alanine Aminotransferase (ALT/SGPT) 14 0-55 U/L Alkaline Phosphatase 115 40-136 U/L Total Protein 9.0 H 6.4-8.2 GM/DL Albumin 3.9 3.2-4.5 GM/DL Urine Color YELLOW Urine Clarity SL CLOUDY Urine pH 6.0 5-9 Urine Specific [place] >=1.030 1.016-1.022 Urine Protein 3+ H NEGATIVE Urine Glucose (UA) NEGATIVE NEGATIVE Urine Ketones NEGATIVE NEGATIVE Urine Nitrite POSITIVE H NEGATIVE Urine Bilirubin NEGATIVE NEGATIVE Urine Urobilinogen 0.2 < = 1.0 MG/DL Urine Leukocyte Esterase NEGATIVE NEGATIVE Urine RBC (Auto) 3+ H NEGATIVE Urine RBC NONE /HPF Urine WBC TNTC H /HPF Urine Squamous Epithelial Cells NONE /HPF Urine Crystals NONE /LPF Urine Bacteria LARGE H /HPF Urine Casts NONE /LPF Urine Mucus NEGATIVE /LPF Urine Culture Indicated YES Glucometer 172 H 70-110 MG/DL Radiology IMPRESSION: 1. Moderate right hydronephrosis with an obstructing 1 cm calculus in the proximal ureter. Additional nonobstructing calculus in the right kidney. 2. Additional wall thickening and periureteral edema about thedistal right uret er. This could be due to additional recently passed stone or possibly infection. 3. Cholelithiasis. 4. Small hiatal hernia. Physical Exam-([facility]) Physical Exam Vital Signs VS - Last 72 Hours, by Label 03/25/21 03/26/21 03/26/21 03/26/21 23:40 03:40 03:58 04:32 Temp 36.3 36.1 Pulse 71 69 69 Resp 18 18 20 B/P (MAP) 139/69 (92) 130/68 134/80 (98) Pulse Ox 98 98 96 O2 Delivery Room Air Room Air Room Air Room Air 03/26/21 03/26/21 03/26/21 03/26/21 07:12 08:00 11:31 16:00 Temp 36.0 36.4 36.4 Pulse 73 67 79 Resp 20 20 18 B/P (MAP) 139/68 (91) 139/64 (89) 124/78 (93) Pulse Ox 96 96 98 94 O2 Delivery Room Air Room Air Room Air Room Air Capillary Refill : Less Than 3 Seconds General Appearance: no apparent distress Cardiovascular: regular rate, rhythm, no murmur Gastrointestinal: normal bowel sounds, non tender Extremities: no pedal edema Neurologic/Psychiatric: alert, normal mood/affect Skin: normal color, warm/dry Assessment/Plan Assessment/Plan Admission Status: Inpatient Order (span 2 midnights) Reason for Inpatient Admission: UTI with nephrolithiasis with multiple comorbidities (1) E-coli UTI Status: Acute Assessment & Plan: Ceftriaxone, culture pending (2) Hydronephrosis Status: Acute Qualifiers: Qualified Codes: N13.2 - Hydronephrosis with renal and ureteral calculous obstruction (3) Nephrolithiasis Status: Acute Assessment & Plan: Appreciate Urology recommendations (4) Hemiparesis affecting left side as late effect of stroke Status: Chronic (5) Hypertension Status: Chronic (6) Hypothyroidism Status: Chronic (7) GERD (gastroesophageal reflux disease) Status: Chronic (8) Neuropathy Status: Chronic (9) Depression Status: Chronic (10) DVT prophylaxis Status: Acute Assessment & Plan: No pharmacologic for possible procedure SOM ZHOU MD Mar 26, 2021 11:17
[2021-03-26 11:31] VITALS: BP 139/64
[2021-03-26 11:44] LABS: HEMATOCRIT 37 % (35-52); HEMOGLOBIN 12.3 g/dL (11.5-16.0); MEAN CORPUSCULAR HEMOGLOBIN 28 pg (25-34); MEAN CORPUSCULAR HGB CONC 33 g/dL (32-36); MEAN CORPUSCULAR VOLUME 85 fL (80-99); MEAN PLATELET VOLUME 10.5 fL (9.0-12.2); PLATELET COUNT 286 10^3/uL (130-400); WHITE BLOOD COUNT 10.5 10^3/uL (4.3-11.0)
--- NOTE | 2021-03-26 14:55 | CONSULTATION REPORT ---
DATE OF SERVICE: 03/26/2021 ATTENDING PHYSICIAN: Dr. Zhou. SUMMARY: A 65-year-old white lady known to me, seen her before in June and July, both as an inpatient and outpatient because of right renal stones and pyelonephritis at that time. She is being admitted with right proximal ureteral stone causing moderate hydro pain and UTI. She received IV antibiotics. She is feeling better today with rest pain and no fever. I reviewed her current H and P by Dr. Zhou and her chart at the office. IMPRESSION: Right proximal ureteral stone with pain, obstruction, and UTI. PLAN: I had a lengthy discussion with the patient regarding her options. First of all having UTI and I was told that she was on aspirin. These are 2 contraindications for ESWL, so we can do it today. Her options are along with continuing the IV antibiotics. 1. Observe for spontaneous passage. 2. Await the ESWL in 2 weeks. 3. Cystoscopy with stone manipulation and insertion of a stent, possible ureteroscopy with stone lithotripsy, basket or lithotomy, especially if she moves her lower. The patient wanted to discuss and decide with her son. I told her I will put her on the schedule tomorrow in case she decided to go through it. If not, we will cancel it. I explained all the expectation risk and complication of all the options. We are going to go ahead and get a KUB in the morning. We are going to go ahead and give her regular diet now and then keep her n.p.o. after midnight in case we do surgery tomorrow. All her questions were answered. Duration of consultation is 55 minutes. Job ID: [id number] DocumentID: [id number] Dictated Date: 03/26/2021 11:31:14 Infantry Assaultman Date: 03/26/2021 14:54:11 Dictated By: SUSAN DAVALOS MD
[2021-03-26 16:00] VITALS: BP 124/78
[2021-03-26 20:00] VITALS: BP 126/76
[2021-03-26] MEDS ORDERED: cefTRIAXone 1 GM/50 ML (PRE-MIX) IV SCH (21:00)
[2021-03-26] MEDS ORDERED: NON-FORMULARY MEDICATION 1 EA EA (Menthol (Biofreeze) 1 APPLIC) TP PRN (21:15)
[2021-03-26] MEDS ORDERED: ANTACID SUSP 30 ML UDC (MYLANTA) PO PRN (21:15)
[2021-03-26] MEDS ORDERED: polyethylene glycoL POWDER 17 GM (MIRALAX) PACK PO PRN (21:15)
[2021-03-26] MEDS ORDERED: DOCUSATE SODIUM 100 MG (COLACE) CAP PO PRN (22:30)
[2021-03-26] MEDS ORDERED: ACETAMINOPHEN 325 MG TABLET PO PRN (22:30)
[2021-03-26] MEDS: traZODone 50 MG (DESYREL) TAB PO SCH (23:52)
[2021-03-27] VITALS (11 sets, daily range): BP systolic 128–177; BP diastolic 74–103
[2021-03-27] MEDS: inSUlin ASPART (NovoLOG) 1 UNIT/0.01 ML (CHARGE PER UNIT) SC SCH ×4 (05:40→21:32)
[2021-03-27 06:10] LABS: BASOPHILS # (AUTO) 0.1 10^3/uL (0.0-0.1); BASOPHILS % (AUTO) 1 % (0-10); EOSINOPHILS # (AUTO) 0.2 10^3/uL (0.0-0.3); EOSINOPHILS % (AUTO) 2 % (0-10); HEMATOCRIT 35 % (35-52); HEMOGLOBIN 11.6 g/dL (11.5-16.0); LYMPHOCYTES # (AUTO) 2.5 10^3/uL (1.0-4.0); LYMPHOCYTES % (AUTO) 32 % (12-44); MEAN CORPUSCULAR HEMOGLOBIN 29 pg (25-34); MEAN CORPUSCULAR HGB CONC 33 g/dL (32-36); MEAN CORPUSCULAR VOLUME 85 fL (80-99); MEAN PLATELET VOLUME 10.7 fL (9.0-12.2); MONOCYTES # (AUTO) 0.7 10^3/uL (0.0-1.0); MONOCYTES % (AUTO) 9 % (0-12); NEUTROPHILS # (AUTO) 4.4 10^3/uL (1.8-7.8); NEUTROPHILS % (AUTO) 56 % (42-75); PLATELET COUNT 257 10^3/uL (130-400); WHITE BLOOD COUNT 7.8 10^3/uL (4.3-11.0)
[2021-03-27] MEDS: LEVOTHYROXINE 50 MCG (LEVOTHROID) TAB PO SCH (06:14)
[2021-03-27] MEDS: D5 1/2 NS W/KCL 20 MEQ/L 1,000 ML IV SCH ×3 (06:14→16:54)
[2021-03-27 06:17] LABS: POTASSIUM 4.3 MMOL/L (3.6-5.0)
[2021-03-27 06:18] LABS: CALCIUM 8.6 MG/DL (8.5-10.1)
[2021-03-27 06:22] LABS: CREATININE SERUM 0.81 MG/DL (0.60-1.30)
--- NOTE | 2021-03-27 08:40 | Diagnostic Imaging Report ---
INDICATION: Right ureteral stone. TIME OF EXAM: 7:52 AM Correlation is made with CT study performed one day earlier as well as a KUB performed one day earlier. The calculus noted on CT in the proximal right ureter is not well-seen by KUB. This was visualized on the KUB one day earlier. There is a vague density in the right pelvis which could potentially represent a calculus in the region of the distal right ureter. Overall quality is limited due to patient's large body habitus. Bowel gas pattern is unremarkable. IMPRESSION: Right-sided urinary tract calculi noted on recent KUB and CT are not as well appreciated on today's study. Calculus could potentially be located in the distal right ureter. There is a moderate amount of motion artifact on the study, compromising the exam. Dictated by: Dictated on workstation # [id number]
[2021-03-27] MEDS: SERTRALINE 50 MG (ZOLOFT) TABLET PO SCH (09:00)
[2021-03-27] MEDS: MULTIVIT W/MINERALS TAB (THERAGRAN M) PO SCH (09:00)
[2021-03-27] MEDS: lisINopril 20 MG (PRINIVIL) TABLET PO SCH (09:00)
[2021-03-27] MEDS: DOCUSATE SODIUM 100 MG (COLACE) CAP PO SCH ×2 (09:00→21:45)
[2021-03-27] MEDS: GABAPENTIN 300 MG (NEURONTIN) CAP PO SCH ×2 (09:00→21:45)
[2021-03-27] MEDS: LORATADINE (CLARITIN) 10 MG TAB PO SCH (09:00)
[2021-03-27] MEDS: VITAMIN D3 25 MCG (1,000 UNITS) TABLET PO SCH (09:00)
--- NOTE | 2021-03-27 10:02 | Progress Note-Pre Operative ---
Pre-Operative Progress Note H&P Reviewed The H&P was reviewed, patient examined and no changes noted. Date Seen by Provider: Mar 27, 2021 Time Seen by Provider: 10:02 Date H&P Reviewed: Mar 27, 2021 Time H&P Reviewed: 10:02 Pre-Operative Diagnosis: RT URETERAL STONE SUSAN DAVALOS MD Mar 27, 2021 10:02
[2021-03-27] MEDS: LACTATED RINGERS 1,000 ML IV PRN ×2 (10:29→11:40)
[2021-03-27] MEDS ORDERED: ONDANSETRON 4 MG/2 ML (SDV) Z0FRAN ONE (10:45)
[2021-03-27] MEDS ORDERED: MIDAZOLAM 2 MG/2 ML (VERSED) VIAL ONE (10:45)
[2021-03-27] MEDS ORDERED: fentaNYL INJ 100 MCG/2 ML AMP ONE (10:45)
[2021-03-27] MEDS ORDERED: proPOfol 200 MG/20 ML (DIPRIVAN) VIAL IV ONE ×2 (10:45→11:45)
[2021-03-27] MEDS ORDERED: LIDOCAINE PF 2% 5 ML (XYLOCAINE) VIAL ONE (10:45)
[2021-03-27] MEDS ORDERED: morphine INJ 10 MG/ML 1ML (SYR OR VIAL) ONE (11:25)
[2021-03-27] MEDS ORDERED: meTOprolol 5 MG/5 ML (LOPRESSOR) VIAL ONE (11:27)
[2021-03-27] MEDS ORDERED: ROCURONIUM 50 MG/5 ML (ZEMURON) VIAL IV ONE (11:45)
--- NOTE | 2021-03-27 11:57 | Anesthesia-General Post-Op ---
General Patient Condition Mental Status/LOC: Same as Preop Cardiovascular: Satisfactory Nausea/Vomiting: Absent Respiratory: Satisfactory Pain: Controlled Complications: Absent Post Op Complications Complications None Follow Up Care/Instructions Patient Instructions None needed. Anesthesia/Patient Condition Patient Condition Patient is doing well, no complaints, stable vital signs, no apparent adverse anesthesia problems. No complications reported per nursing. HONEY FENG CRNA Mar 27, 2021 11:57
[2021-03-27] MEDS ORDERED: fentaNYL INJ 100 MCG/2 ML AMP IVP ONE (12:00)
[2021-03-27] MEDS ORDERED: MEPERIDINE (DEMEROL) INJ 50 MG/ML IVP ONE (12:00)
[2021-03-27] MEDS ORDERED: ONDANSETRON 4 MG/2 ML (SDV) Z0FRAN IVP PRN (12:00)
[2021-03-27] MEDS ORDERED: morphine INJ 10 MG/ML 1ML (SYR OR VIAL) IVP ONE (12:00)
--- NOTE | 2021-03-27 12:24 | Progress Note-Post Operative ---
Post-Operative Progess Note Surgeon (s)/Director Equipment (s) Surgeon SUSAN DAVALOS MD Director Equipment: NONE Pre-Operative Diagnosis RT URETERAL STONE Post-Operative Diagnosis SAME Procedure & Operative Findings Date of Procedure 03/27/21 Procedure Performed/Findings CYSTOSCOPY AND ATTEMPTED STENT Anesthesia Type GENERAL Estimated Blood Loss Estimated blood loss (mL): NONE Specimens/Packing Specimens Removed NONE Packing: NONE SUSAN DAVALOS MD Mar 27, 2021 12:24
--- NOTE | 2021-03-27 13:08 | Progress Note ---
Subjective Subjective/Events-last exam Afebrile, states she had a lot of pain yesterday so she decided she wanted to proceed with procedure for stenting. She denies other concerns this morning. Objective Exam Last Set of Vital Signs Vital Signs Date Time Temp Pulse Resp B/P (MAP) Pulse Ox O2 Delivery O2 Flow Rate FiO2 03/27/21 12:20 20 152/92 (112) 93 OxyMask 2 03/27/21 11:54 36.2 03/27/21 08:00 64 Capillary Refill : Less Than 3 Seconds I&O Intake and Output 03/27/21 00:00 Intake Total 2250 ml Output Total 550 ml Balance 1700 ml Intake Oral 1200 ml IV Total 1050 ml Output Urine Total 550 ml # Voids 2 Daily Weight Change No General: Alert, No Acute Distress Lungs: Clear to Auscultation, Normal Air Movement Heart: Regular Rate, No Murmurs Extremities: Other (trace edema) Neuro: Normal Speech Psych/Mental Status: Mood NL Results/Procedures Lab Laboratory Tests 03/26/21 17:00: Glucometer 109 03/26/21 21:03: Glucometer 145H 03/27/21 05:26: Glucometer 161H 03/27/21 05:42: Sodium Level 140, Potassium Level 4.3, Chloride Level 107, Carbon Dioxide Level 24, Anion Gap 9, Blood Urea Nitrogen 13, Creatinine 0.81, Estimat Glomerular Filtration Rate 87, BUN/Creatinine Ratio 16, Glucose Level 161H, Calcium Level 8.6 03/27/21 05:47: White Blood Count 7.8, Red Blood Count 4.07, Hemoglobin 11.6, Hematocrit 35, Mean Corpuscular Volume 85, Mean Corpuscular Hemoglobin 29, Mean Corpuscular Hemoglobin Concent 33, Red Cell Distribution Width 13.4, Platelet Count 257, Mean Platelet Volume 10.7, Immature Granulocyte % (Auto) 0, Neutrophils (%) (Auto) 56, Lymphocytes (%) (Auto) 32, Monocytes (%) (Auto) 9, Eosinophils (%) (Auto) 2, Basophils (%) (Auto) 1, Neutrophils # (Auto) 4.4, Lymphocytes # (Auto) 2.5, Monocytes # (Auto) 0.7, Eosinophils # (Auto) 0.2, Basophils # (Auto) 0.1, Immature Granulocyte # (Auto) 0.0 Microbiology 03/26/21 MRSA Screen - Final, Complete MRSA not isolated 03/26/21 Urine Culture - Final, Complete Escherichia coli Radiology IMPRESSION: 1. Moderate right hydronephrosis with an obstructing 1 cm calculus in the proximal ureter. Additional nonobstructing calculus in the right kidney. 2. Additional wall thickening and periureteral edema about thedistal right ureter. This could be due to additional recently passed stone or possibly infection. 3. Cholelithiasis. 4. Small hiatal hernia. Assessment/Plan Assessment/Plan (1) E-coli UTI Status: Acute Assessment & Plan: Ceftriaxone, culture pending 03/27 sensitive to cefazolin, will transition to cephalexin (2) Hydronephrosis Status: Acute Qualifiers: Qualified Codes: N13.2 - Hydronephrosis with renal and ureteral calculous obstruction (3) Nephrolithiasis Status: Acute Assessment & Plan: Appreciate Urology recommendations, planning for stenting today. (4) Hemiparesis affecting left side as late effect of stroke Status: Chronic (5) Hypertension Status: Chronic Qualifiers: Qualified Codes: I10 - Essential (primary) hypertension (6) Hypothyroidism Status: Chronic (7) GERD (gastroesophageal reflux disease) Status: Chronic (8) Neuropathy Status: Chronic (9) Depression Status: Chronic (10) DVT prophylaxis Status: Acute Assessment & Plan: No pharmacologic for possible procedure SOM POTTER MD Mar 27, 2021 13:08
[2021-03-27] MEDS: CEPHALEXIN 250 MG (KEFLEX) CAP PO SCH ×3 (16:48→21:45)
[2021-03-27] MEDS ORDERED: CEPHALEXIN 250 MG (KEFLEX) CAP PO SCH (17:00)
--- NOTE | 2021-03-27 17:54 | OPERATIVE REPORT ---
DATE OF SERVICE: 03/27/2021 PREOPERATIVE DIAGNOSIS: Right ureteral stone with urinary tract infection. POSTOPERATIVE DIAGNOSIS: Right ureteral stone with urinary tract infection. OPERATION PERFORMED: Cystoscopy with attempted insertion of right stent. SURGEON: Tolu Davalos MD ANESTHESIA: General. COMPLICATIONS: None. DESCRIPTION OF PROCEDURE: Under satisfactory general anesthesia, the patient in lithotomy position, genitalia were prepped and draped in the usual sterile fashion. Cystoscope was introduced in the bladder. Bladder showed quite a bit of cystitis in the floor, mostly on the right side hiding completely the right ureteral orifice. I could see the left one in the left side of the trigone. I tried to trace the ureter in comparison with the left ureteral orifice, but was unable to. I attempted to insert a stent in areas that could fit, but no luck, so I discontinued further attempt, emptied the bladder, removed the cystoscope. The patient tolerated the procedure and anesthesia well and was sent to recovery room in stable condition. RECOMMENDATION: Continue IV hydration, pain medicine. Hopefully, she will pass the stone on her own. If her pain and infection can be controlled until the ESWL machine comes here in 2 weeks, we will perform that. If not, she will need to go to a situation where they would either try themselves to put a stent or put a percutaneous nephrostomy tube in awaiting unless ESWL come sooner. Job ID: [id number] DocumentID: [id number] Dictated Date: 03/27/2021 12:27:18 Fluid Jet Cutter Operator Date: 03/27/2021 17:53:49 Dictated By: TOLU DAVALOS MD
[2021-03-27] MEDS ORDERED: NON-FORMULARY MEDICATION 1 EA EA (Menthol (Biofreeze) 1 APPLIC) TP SCH (21:00)
[2021-03-27] MEDS: PANTOPRAZOLE 20 MG TABLET (PROTONIX) PO SCH (21:45)
[2021-03-27] MEDS: traZODone 50 MG (DESYREL) TAB PO SCH (21:45)
[2021-03-28] VITALS (7 sets, daily range): BP systolic 123–159; BP diastolic 60–91
[2021-03-28] MEDS: D5 1/2 NS W/KCL 20 MEQ/L 1,000 ML IV SCH ×3 (01:31→18:37)
[2021-03-28 05:57] LABS: HEMATOCRIT 33 % (35-52); MEAN CORPUSCULAR HEMOGLOBIN 29 pg (25-34); MEAN CORPUSCULAR HGB CONC 34 g/dL (32-36); MEAN CORPUSCULAR VOLUME 86 fL (80-99); MEAN PLATELET VOLUME 10.5 fL (9.0-12.2); PLATELET COUNT 234 10^3/uL (130-400)
[2021-03-28 06:14] LABS: POTASSIUM 4.5 MMOL/L (3.6-5.0)
[2021-03-28 06:15] LABS: CALCIUM 8.4 MG/DL (8.5-10.1)
[2021-03-28] MEDS: inSUlin ASPART (NovoLOG) 1 UNIT/0.01 ML (CHARGE PER UNIT) SC SCH ×4 (06:17→21:00)
[2021-03-28 06:20] LABS: CREATININE SERUM 0.76 MG/DL (0.60-1.30)
[2021-03-28] MEDS: LEVOTHYROXINE 50 MCG (LEVOTHROID) TAB PO SCH (06:20)
[2021-03-28] MEDS: DOCUSATE SODIUM 100 MG (COLACE) CAP PO SCH ×2 (08:27→21:17)
[2021-03-28] MEDS: GABAPENTIN 300 MG (NEURONTIN) CAP PO SCH ×2 (08:27→21:17)
[2021-03-28] MEDS: lisINopril 20 MG (PRINIVIL) TABLET PO SCH (08:28)
[2021-03-28] MEDS: CEPHALEXIN 250 MG (KEFLEX) CAP PO SCH ×4 (08:28→21:17)
[2021-03-28] MEDS: SERTRALINE 50 MG (ZOLOFT) TABLET PO SCH (08:28)
[2021-03-28] MEDS: MULTIVIT W/MINERALS TAB (THERAGRAN M) PO SCH (08:28)
[2021-03-28] MEDS: LORATADINE (CLARITIN) 10 MG TAB PO SCH (08:28)
[2021-03-28] MEDS: VITAMIN D3 25 MCG (1,000 UNITS) TABLET PO SCH (08:28)
--- NOTE | 2021-03-28 10:04 | Progress Note ---
Subjective Subjective/Events-last exam Afebrile, states she is doing okay, but she slept most of the day yesterday after anesthesia, so not sure if she will still have pain today. Objective Exam Last Set of Vital Signs Vital Signs Date Time Temp Pulse Resp B/P (MAP) Pulse Ox O2 Delivery O2 Flow Rate FiO2 03/28/21 08:00 36.5 88 18 136/91 (106) 95 Room Air 03/27/21 12:20 2 Capillary Refill : Less Than 3 Seconds I&O Intake and Output 03/27/21 23:59 Intake Total 2170 ml Output Total 525 ml Balance 1645 ml Intake Oral 570 ml IV Total 1600 ml Output Urine Total 525 ml # Voids 1 # Bowel Movements 1 General: Alert, No Acute Distress Lungs: Clear to Auscultation, Normal Air Movement Heart: Regular Rate, No Murmurs Neuro: Other (slow speech) Psych/Mental Status: Mood NL Results/Procedures Lab Laboratory Tests 03/27/21 13:03: Glucometer 154H 03/27/21 17:01: Glucometer 160H 03/27/21 20:55: Glucometer 154H 03/28/21 05:31: White Blood Count 8.0, Red Blood Count 3.83, Hemoglobin 11.0L, Hematocrit 33L, Mean Corpuscular Volume 86, Mean Corpuscular Hemoglobin 29, Mean Corpuscular Hemoglobin Concent 34, Red Cell Distribution Width 13.5, Platelet Count 234, Mean Platelet Volume 10.5, Sodium Level 138, Potassium Level 4.5, Chloride Level 106, Carbon Dioxide Level 23, Anion Gap 9, Blood Urea Nitrogen 8, Creatinine 0.76, Estimat Glomerular Filtration Rate 93, BUN/Creatinine Ratio 11, Glucose Level 154H, Calcium Level 8.4L Microbiology 03/26/21 MRSA Screen - Final, Complete MRSA not isolated 03/26/21 Urine Culture - Final, Complete Escherichia coli Radiology IMPRESSION: 1. Moderate right hydronephrosis with an obstructing 1 cm calculus in the proximal ureter. Additional nonobstructing calculus in the right kidney. 2. Additional wall thickening and periureteral edema about thedistal right ureter. This could be due to additional recently passed stone or possibly infection. 3. Cholelithiasis. 4. Small hiatal hernia. Assessment/Plan Assessment/Plan (1) E-coli UTI Status: Acute Assessment & Plan: Ceftriaxone, culture pending 03/27 sensitive to cefazolin, will transition to cephalexin (2) Hydronephrosis Status: Acute Qualifiers: Qualified Codes: N13.2 - Hydronephrosis with renal and ureteral calculous obstruction (3) Nephrolithiasis Status: Acute Assessment & Plan: Appreciate Urology recommendations, planning for stenting today. 03/28 unable to pass scope/stent through ureter related to inflammation in bladder, patient would prefer to try completing antibiotics and waiting and get ting ESWL, but is concerned about pain, will monitor through today and if able to tolerate pain on oral meds, will d/c tomorrow on antibiotics with plan for ESWL in 2 weeks. (4) Hemiparesis affecting left side as late effect of stroke Status: Chronic (5) Hypertension Status: Chronic Qualifiers: Qualified Codes: I10 - Essential (primary) hypertension (6) Hypothyroidism Status: Chronic (7) GERD (gastroesophageal reflux disease) Status: Chronic (8) Neuropathy Status: Chronic (9) Depression Status: Chronic (10) DVT prophylaxis Status: Acute Assessment & Plan: No pharmacologic for possible procedure SOM POTTER MD Mar 28, 2021 10:04
--- NOTE | 2021-03-28 10:57 | Progress Note - Urology ---
Progress Note-Urology Progress Notes/Assess & Plan Progress/Assessment & Plan RECOVERED WELL. NO PAIN. AFEBRILE. PLAN 1. KUB NOW 2. OK TO DISCHARGE TOMORROW ON ABX, NO ASA OR BLODD THINNERS 3. OFFICE SUNDAY 04/08 2PM, TO PLAN ESWL MONDAY 04/09, KUB PRIOR TO OFFICE 4.IF PROBLEMS BEFORE, GO TO ED IN [place] Final Diagnosis RT RENAL STONE AND UTI WITH CYSTITIS SUSAN DAVALOS MD Mar 28, 2021 10:57
[2021-03-28] MEDS ORDERED: HYDROcodone/APAP 5 MG/325 MG (LORTAB) TAB PO PRN (14:00)
--- NOTE | 2021-03-28 14:58 | Diagnostic Imaging Report ---
INDICATION: Nephrolithiasis. COMPARISON: Exam is correlated with abdominopelvic CT 03/26/2021 and compared with radiograph of one day prior. FINDINGS: A stone in the proximal right ureter present on CT as well as a lower pole calculus cannot be discerned at this exam. There is a mildly elevated fecal load, which confounds radiographic evaluation. A small sclerotic focus associated with the distal tip of the right third lumbar transverse process is unchanged from prior CT. IMPRESSION: No radiographically appreciable ureteral stone. Dictated by: Dictated on workstation # [id number]
[2021-03-28] MEDS: PANTOPRAZOLE 20 MG TABLET (PROTONIX) PO SCH (21:17)
[2021-03-28] MEDS: traZODone 50 MG (DESYREL) TAB PO SCH (21:17)
[2021-03-29 00:05] VITALS: BP 153/84
[2021-03-29] MEDS: D5 1/2 NS W/KCL 20 MEQ/L 1,000 ML IV SCH (03:28)
[2021-03-29 03:38] VITALS: BP 130/59
[2021-03-29] MEDS: inSUlin ASPART (NovoLOG) 1 UNIT/0.01 ML (CHARGE PER UNIT) SC SCH ×2 (05:43→12:35)
[2021-03-29] MEDS: LEVOTHYROXINE 50 MCG (LEVOTHROID) TAB PO SCH (05:51)
[2021-03-29 05:56] LABS: HEMATOCRIT 34 % (35-52); HEMOGLOBIN 11.4 g/dL (11.5-16.0); MEAN CORPUSCULAR HEMOGLOBIN 29 pg (25-34); MEAN CORPUSCULAR HGB CONC 33 g/dL (32-36); MEAN CORPUSCULAR VOLUME 86 fL (80-99); MEAN PLATELET VOLUME 10.2 fL (9.0-12.2); PLATELET COUNT 238 10^3/uL (130-400); WHITE BLOOD COUNT 7.3 10^3/uL (4.3-11.0)
[2021-03-29 06:19] LABS: POTASSIUM 4.3 MMOL/L (3.6-5.0)
[2021-03-29 06:20] LABS: CALCIUM 8.4 MG/DL (8.5-10.1)
[2021-03-29 06:24] LABS: CREATININE SERUM 0.71 MG/DL (0.60-1.30)
[2021-03-29] MEDS ORDERED: CEPH250C PO (07:31)
[2021-03-29] MEDS ORDERED: ACHD5005 PO (07:31)
[2021-03-29] MEDS ORDERED: ONDA4TAB11 PO (07:32)
--- NOTE | 2021-03-29 07:32 | Discharge Summary ---
Discharge Summary Hospital Course Problems/Diagnosis: (1) E-coli UTI Status: Acute Assessment & Plan: Ceftriaxone, culture pending 03/27 sensitive to cefazolin, transitioned to cephalexin and will continue until follow up with Dr Rowland (2) Hydronephrosis Status: Acute Qualifiers: Qualified Codes: N13.2 - Hydronephrosis with renal and ureteral calculous obstruction (3) Nephrolithiasis Status: Acute Assessment & Plan: Appreciate Urology recommendations, planning for stenting today. 03/28 unable to pass scope/stent through ureter related to inflammation in bladder, patient would prefer to try completing antibiotics and waiting and getting ESWL, tolerated next 24 hours with no pain medications, discharged to follow up for ESWL in 2 weeks. Aspirin held on d/c in anticipate of procedure. (4) Hemiparesis affecting left side as late effect of stroke Status: Chronic (5) Hypertension Status: Chronic Qualifiers: Qualified Codes: I10 - Essential (primary) hypertension (6) Hypothyroidism Status: Chronic (7) GERD (gastroesophageal reflux disease) Status: Chronic (8) Neuropathy Status: Chronic (9) Depression Status: Chronic Hospital Course Date of Admission: Mar 26, 2021 at 02:40 Admission Diagnosis : Family Physician/Provider: Maria C Arguello Date of Discharge: 03/29/21 Discharge Diagnosis: See problem list Hospital Course: See problem list Labs and Pending Lab Test: Laboratory Tests 03/28/21 11:20: Glucometer 166H 03/28/21 16:59: Glucometer 154H 03/28/21 20:26: Glucometer 135H 03/29/21 05:06: Glucometer 166H 03/29/21 05:50: White Blood Count 7.3, Red Blood Count 3.98, Hemoglobin 11.4L, Hematocrit 34L, Mean Corpuscular Volume 86, Mean Corpuscular Hemoglobin 29, Mean Corpuscular Hemoglobin Concent 33, Red Cell Distribution Width 13.3, Platelet Count 238, Mean Platelet Volume 10.2, Sodium Level 139, Potassium Level 4.3, Chloride Level 107, Carbon Dioxide Level 23, Anion Gap 9, Blood Urea Nitrogen 6L, Creatinine 0.71, Estimat Glomerular Filtration Rate 101, BUN/Creatinine Ratio 8, Glucose Level 156H, Calcium Level 8.4L Microbiology 03/26/21 MRSA Screen - Final, Complete MRSA not isolated 03/26/21 Urine Culture - Final, Complete Escherichia coli Home Meds Active Ondansetron Odt (Ondansetron) 4 Mg Tab.rapdis 4 Mg PO Q4H PRN Cephalexin 250 Mg Capsule 500 Mg PO QID 10 Days Reported Levothyroxine Sodium 50 Mcg Tablet 50 Mcg PO DAILY Acidophilus Lactobacilli (Lactobacillus Acidophilus) 1 Each Capsule 1 Each PO DAILY Vitamin E (Vitamin E Acetate) 400 Unit Capsule 400 Unit PO DAILY Zoloft (Sertraline HCl) 50 Mg Tablet 50 Mg PO DAILY Vitamin D3 (Cholecalciferol (Vitamin D3)) 25 Mcg Capsule 50 Mcg PO DAILY Trazodone HCl 50 Mg Tablet 50 Mg PO HS Metoprolol Succinate 25 Mg Tab.er.24h 25 Mg PO DAILY HOLD IF PULSE <50BPM OR BP<100/500 Omeprazole 20 Mg Capsule.dr 20 Mg PO HS Neurontin (Gabapentin) 300 Mg Capsule 300 Mg PO BID Mylanta Suspension (Al Hydrox/Mg Hydrox/Simethicone) 30 Ml Oral.susp 30 Ml PO Q4H PRN Multivitamins with Minerals (Multivitamin with Minerals) 1 Each Tablet 1 Each PO DAILY Miralax (Polyethylene Glycol 3350) 17 Gm Powd.pack 17 Gm PO DAILY PRN Lisinopril 20 Mg Tablet 20 Mg PO DAILY HOLD IF PULSE <50BPM OR BP <100/50 [place] (Menthol) 7.5 Mg Lozenge 1 Ea MM EVERY 2 HOURS PRN Ginkgo (Ginkgo Biloba) 60 Mg Tablet 60 Mg PO BID Docusate Sodium 100 Mg Tablet 100 Mg PO BID Docusate Sodium 100 Mg Tablet 100 Mg PO DAILY PRN Claritin (Loratadine) 10 Mg Tablet 10 Mg PO DAILY Biofreeze (Menthol) 118 Ml Gel..ml. 1 Applic TP EVERY 2 HOURS PRN Biofreeze (Menthol) 118 Ml Gel..ml. 1 Applic TP HS APPLY TO LEFT LEG/FOOT Aspirin EC (Aspirin) 81 Mg Tablet. 81 Mg PO DAILY Tylenol (Acetaminophen) 325 Mg Capsule 650 Mg PO Q4H PRN Assessment/Pt DC Instructions Follow up with Dr. Rowland as directed, stay off of aspirin and on antibiotics until seeing Dr. Rowland. Discharge Diet: Cardiac Diet Activity as Tolerated: Yes Discharge Physical Examination Allergies: Coded Allergies: No Known Drug Allergies (Unverified , 8/23/12) General Appearance: No Apparent Distress Respiratory: No Respiratory Distress Neurologic/Psychiatric: Alert, Normal Mood/Affect SOM POTTER MD Mar 29, 2021 07:32
[2021-03-29 08:00] VITALS: BP 166/98
[2021-03-29] MEDS: lisINopril 20 MG (PRINIVIL) TABLET PO SCH (09:07)
[2021-03-29] MEDS: CEPHALEXIN 250 MG (KEFLEX) CAP PO SCH ×2 (09:08→12:34)
[2021-03-29] MEDS: LORATADINE (CLARITIN) 10 MG TAB PO SCH (09:08)
[2021-03-29] MEDS: MULTIVIT W/MINERALS TAB (THERAGRAN M) PO SCH (09:08)
[2021-03-29] MEDS: VITAMIN D3 25 MCG (1,000 UNITS) TABLET PO SCH (09:08)
[2021-03-29] MEDS: DOCUSATE SODIUM 100 MG (COLACE) CAP PO SCH (09:08)
[2021-03-29] MEDS: SERTRALINE 50 MG (ZOLOFT) TABLET PO SCH (09:08)
[2021-03-29] MEDS: GABAPENTIN 300 MG (NEURONTIN) CAP PO SCH (09:11)
[2021-03-29 12:00] VITALS: BP 145/83
[2021-03-29 13:19] VITALS: BP 145/83
== END 2021-03-29 13:18 | DRG 690 ==
LOC: EDUNIT# 23:28 → ER 23:33 → 4TH 03-26 02:40
PROVIDERS: ADMIT Family Medicine; ATTEND Family Medicine
PROC: 0TJB8ZZ Inspection of Bladder, Via Natural or Artificial Opening Endoscopic (ICD-10-PCS; principal; 2021-03-27 10:55)
DX: N13.6 Pyonephrosis (principal); I69.954 Hemiplegia and hemiparesis following unspecified cerebrovascular disease affecting left non-dominant side; Z68.41 Body mass index [BMI] 40.0-44.9, adult; I10 Essential (primary) hypertension; E03.9 Hypothyroidism, unspecified; K21.9 Gastro-esophageal reflux disease without esophagitis; F32.A Depression, unspecified; Z79.82 Long term (current) use of aspirin; Z79.899 Other long term (current) drug therapy; G43.909 Migraine, unspecified, not intractable, without status migrainosus; E66.01 Morbid (severe) obesity due to excess calories; E11.40 Type 2 diabetes mellitus with diabetic neuropathy, unspecified
CPT/HCPCS: 36415; 51702; 74018; 74176; 76000; 80048; 80053; 81000; 82947; 85025; 85027; 87077; 87081; 87088; 87186